=== PATIENT | female | born 1940 | race American Indian/Alaskan Native ===

== ENCOUNTER 2016-07-31 18:45 | Observation (INO) | payer MEDICARE, OTHER ==
[2016-07-31 18:57] VITALS: BMI 44.6
[2016-07-31 20:18] LABS: ADD MANUAL DIFF? NO
[2016-07-31 20:27] LABS: BASO # 0.03 K/mm3 (0.0-2.0); BASO % 0.5 % (0.0-3.0); EOS # 0.1 (0.0-0.7); EOS % 2.3 % (1.5-5.0); GRAN % 53.7 % (50.0-68.0); LYMPH % 36.3 % (22.0-35.0); MEAN CELL VOLUME 85.3 fL (80.0-105.0); MEAN CORPUSCULAR HEMOGLOBIN 26.2 pg (25.0-35.0); MEAN CORPUSCULAR HGB CONC 30.8 g/dl (31.0-37.0); MEAN PLATELET VOLUME 10.3 fl (7.0-11.0); MONO # 0.4 (0.1-0.6); MONO % 7.2 % (1.0-6.0); PLATELET COUNT 275 10^3/uL (120.0-450.0); RED CELL DISTRIBUTION WIDTH 16.3 % (11.5-14.5); WHITE BLOOD COUNT 5.6 10^3/ul (4.5-11.0)
[2016-07-31 20:32] LABS: ALB/GLOB RATIO 0.9 (1.1-1.8); BILIRUBIN,TOTAL 0.8 mg/dL (0.2-1.3); CALCIUM 9.6 mg/dL (8.4-10.5); TOTAL PROTEIN 8.4 g/dL (5.8-8.3)
--- NOTE | 2016-07-31 22:55 | ED PDOC ---
Arrival/HPI <Caleb Handley - Last Filed: 07/31/16 22:55> - General Historian: Patient <Delia Friedman - Last Filed: 08/01/16 03:16> - General Chief Complaint: Breast Problem Time Seen by Provider: 07/31/16 19:05 - History of Present Illness Narrative History of Present Illness (Text): 08/01/16 03:08 76yr old female presents today sent in by dr. chong for evaluation of left breast mass/abscess. pt states she was seen in dr. chong office today for breast mass and sent into er. pt c/o subjective fevers at home. no cp or new SOB. pt states she always has been feeling a little sob since her cabg this year. pt denies n/v/d/c. no abdominal pain. pt states she noticed lump to left breast a few weeks ago. pt states she now is having a heaviness feeling to the left breast and has noticed some erythema. no other complaints. (Delia Friedman) Past Medical History - Provider Review Nursing Documentation Reviewed: Yes - Travel History Have you recently traveled outside [place] w/in the past 3 mons?: No - Cardiac Hx Cardiac Disorders: Yes Hx Congestive Heart Failure: Yes Hx Hypertension: Yes - Pulmonary Hx Respiratory Disorders: Yes (PE) Hx Sleep Apnea: Yes - Neurological Hx Neurological Disorder: Yes (SYNCOPE) Hx Transient Ischemic Attacks (TIA): Yes - HEENT Hx HEENT Disorder: Yes Hx Cataracts: Yes Hx Glaucoma: Yes - Renal Hx Renal Disorder: No - Endocrine/Metabolic Hx Diabetes Mellitus Type 2: Yes - Hematological/Oncological Hx Blood Disorders: No - Integumentary Hx Dermatological Disorder: Yes (BILATERAL LEG EDEMA RIGHT LEG +3 AND LEFT LEG + 2.) - Musculoskeletal/Rheumatological Hx Falls: No - Gastrointestinal Hx Gastrointestinal Disorders: Yes - Genitourinary/Gynecological Hx Genitourinary Disorders: Yes (BILATERAL BREAST REDUCTION,TOTAL HYSTERECTOMY) - Psychiatric Hx Psychophysiologic Disorder: No Hx Emotional Abuse: No Hx Physical Abuse: No Hx Substance Use: No - Surgical History Hx Cardiac Catheterization: Yes Hx Coronary Stent: Yes (6) Hx Hysterectomy: Yes (TOTAL) Other/Comment: CARD CATH - Anesthesia Hx Anesthesia Reactions: No Hx Malignant Hyperthermia: No - Suicidal Assessment Feels Threatened In Home Enviroment: No <Delia Friedman - Last Filed: 08/01/16 03:16> Family/Social History - Physician Review Nursing Documentation Reviewed: Yes Family/Social History: Unknown Family HX Smoking Status: Never Smoked Hx Alcohol Use: No Hx Substance Use: No <Delia Friedman Joe - Last Filed: 08/01/16 03:16> Allergies/Home Meds <EnderCaleb - Last Filed: 07/31/16 22:55> <Delia Friedman Joe - Last Filed: 08/01/16 03:16> Allergies/Adverse Reactions: Allergies shellfish derived Allergy (Verified 07/31/16 18:57) SWELLING Home Medications: Home Meds Medication Instructions Recorded Confirmed Acetaminophen [8 Hour] 650 mg PO Q6H PRN 05/26/16 06/02/16 Dorzolamide HCl/Timolol Maleat 1 drop OP BID 05/26/16 06/02/16 [Dorzolamide-Timolol Eye Drops] Latanoprost [Xalatan] 1 drop OP HS 05/26/16 06/02/16 traMADol [Ultram] 50 mg PO Q6 PRN 05/26/16 06/02/16 Insulin Glargine,Hum.rec.anlog 55 unit SQ HS 06/02/16 06/02/16 [Whitney Mayorga] Review of Systems - Review of Systems Constitutional: Fevers. absent: Fatigue ENT: absent: Sinus Congestion Respiratory: absent: Cough, Wheezing Cardiovascular: absent: Chest Pain, Palpitations Gastrointestinal: absent: Abdominal Pain, Nausea, Vomiting Genitourinary Female: absent: Dysuria Musculoskeletal: Other (breast mass). absent: Arthralgias, Back Pain, Neck Pain Skin: Rash Neurological: absent: Headache, Dizziness Psychiatric: absent: Anxiety, Depression <Delia Friedman Joe - Last Filed: 08/01/16 03:16> Physical Exam Vital Signs Reviewed: Yes Temperature: Afebrile Blood Pressure: Hypertensive Pulse: Tachycardic Respiratory Rate: Normal Appearance: Positive for: Well-Appearing, Non-Toxic, Comfortable Pain Distress: None Mental Status: Positive for: Alert and Oriented X 3 - Systems Exam Head: Present: Atraumatic Mouth: Present: Moist Mucous Membranes Nose (Internal): Present: Normal Inspection Neck: Present: Normal Range of Motion Respiratory/Chest: Present: Clear to Auscultation, Good Air Exchange. No: Respiratory Distress, Accessory Muscle Use Cardiovascular: Present: Regular Rate and Rhythm Abdomen: No: Tenderness, Distention Breast/Axillary: Present: Erythema, Masses (large palpable mass noted to inferior aspect of breast approx golf ball sized. with surrouding erythema and edema, no tenderness. ). No: Nipple Discharge, Symmetrical Upper Extremity: Present: Normal ROM Neurological: Present: GCS=15 Skin: Present: Warm, Dry, Normal Color. No: Rashes Psychiatric: Present: Alert, Oriented x 3 <Delia Friedman - Last Filed: 08/01/16 03:16> Vital Signs Temp Pulse Resp BP Pulse Ox 07/31/16 23:47 99.5 F 92 H 18 155/87 H 97 07/31/16 18:56 98.8 F 102 H 20 152/84 H 95 Medical Decision Making <Caleb Handley - Last Filed: 07/31/16 22:55> <Delia Friedman - Last Filed: 08/01/16 03:16> ED Course and Treatment: 76yr old female with left breast mass/abscess/cellulitis cbc: wnl cmp; wnl cxr; ? left pleural effusion vs elevated diaphagrm blood cultures pending US: COMPARISON: MG - MAMMO DIGITAL SCREENING 08/14/2015 9:10:13 AM FINDINGS: Soft tissues: 3.7 x 1.4 x 3.6 cm mass at 4:00-5:00 position. 1.9 x 1.5 x 1.1 cm mass at 6:00 position. Mild edema within soft tissues. No discrete fluid collection. IMPRESSION: 1. Breast masses, indeterminate. Malignancy not excluded. Recommend correlation with mammography and surgical consultation. 2. Soft tissue edema. No sonographic evidence of abscess. 3. Incidental/non-acute findings are described above. rocephin given IV for cellulitis of breast. case discussed with dr. valle ; will admit observational status to med/surg for cellulitis of left breast and breast mass. pt was seen by resident at beside; dr. meade impression; breast mass, cellulitis, breast admit to med/surg, (Delia Friedman) - Lab Interpretations Lab Results: 07/31/16 19:45 07/31/16 19:45 Lab Results 07/31/16 19:45: WBC 5.6 D, RBC 4.69, Hgb 12.3, Hct 40.0, MCV 85.3, MCH 26.2, MCHC 30.8 L, RDW 16.3 H, Plt Count 275, MPV 10.3, Gran % 53.7, Lymph % (Auto) 36.3 H, [place] % (Auto) 7.2 H, Eos % (Auto) 2.3, Baso % (Auto) 0.5, Gran # 3.00, Lymph # 2.0, [place] # 0.4, Eos # 0.1, Baso # 0.03 07/31/16 19:45: Sodium 142, Potassium 5.0, Chloride 103, Carbon Dioxide 30, Anion Gap 14, BUN 11, Creatinine 1.1, Est GFR ( Amer) 58, Est GFR (Non- Af Amer) 48, Random Glucose 126 H, Calcium 9.6, Total Bilirubin 0.8, AST 33, ALT 18, Alkaline Phosphatase 80, Total Protein 8.4 H, Albumin 3.9, Globulin 4.4 , Albumin/Globulin Ratio 0.9 L - RAD Interpretation Radiology Orders: 07/31/16 19:23 CHEST PORTABLE [RAD] Stat 07/31/16 19:32 BREAST UNILATERAL LEFT [US] Stat - Medication Orders Current Medication Orders: Aspirin (Aspirin Chewable) 81 mg PO DAILY [facility] Atorvastatin Calcium (Lipitor) 10 mg PO DIN [facility] Ferrous Sulfate (Feosol) 324 mg PO TID [facility] Furosemide (Lasix) 40 mg PO DAILY [facility] Insulin Human Regular (Humulin R Low) 0 units SC ACHS [facility] PRN Reason: Protocol Levothyroxine Sodium (Synthroid) 125 mcg PO 0600 [facility] Pantoprazole Sodium (Protonix Ec Tab) 40 mg PO 0630 [facility] Senna/Docusate Sodium (Senokot S 50 Mg-8.6 Mg) 1 tab PO DAILY [facility] Discontinued Medications Ceftriaxone Sodium (Rocephin 1 Gram Ivpb) 1 gm in 100 mls @ 200 mls/hr IVPB STAT STA PRN Reason: Protocol Stop: 07/31/16 23:22 Last Admin: 08/01/16 00:36 Dose: 200 mls/hr - PA / BROADCAST OPERATIONS ENGINEER / Resident Statement EDWINA has reviewed & agrees with the documentation as recorded. EDWINA has examined the patient and agrees with the treatment plan. <Caleb Handley - Last Filed: 07/31/16 22:55> Disposition/Present on Arrival <Caleb Handley - Last Filed: 07/31/16 22:55> - Present on Arrival Any Indicators Present on Arrival: Yes History of DVT/PE: No History of Uncontrolled Diabetes: Yes Urinary Catheter: No History of Decub. Ulcer: No History Surgical Site Infection Following: None - Disposition Have Diagnosis and Disposition been Completed?: Yes Disposition Time: 22:55 <Delia Friedman - Last Filed: 08/01/16 03:16> - Disposition Diagnosis: Cellulitis of breast, Breast mass Disposition: HOSPITALIZED Condition: GOOD
[2016-07-31] MEDS: cefTRIAXone 1 gm 1 GM/100 ML BAG IVPB STA (23:35)
--- NOTE | 2016-07-31 23:40 | CP.PCM.HP ---
<Madhav Choudhury - Last Filed: 08/01/16 00:22> History of Present Illness - History of Present Illness History of Present Illness: 76 y/o F with PMH of CAD s/p stent placement and CABG, CHF, pulmary HTN, HTN, IDDM, GABRIELLE, and normocytic anemia presents to the hospital for left sided breast mass. Pt was seen by Dr. Garner in clinic earlier today and was recommended to come to the hospital for further evaluation of breast. Pt states she first noticed the breast mass on the left breast several weeks ago while cleaning herself. She states there is no pain associated with mass. Pt also went to see her margin clerk, Dr. Baez, last week who was not concerned with the mass at the time. Pt does admit to mild shortness of breath on exertion, but she states she has had it since before her recent CABG in 04/2016 but has been improving. Of note, patient had a mammogram in 07/2015 which did not show any signs of malignancy or benign masses. Denies CP, N/V/D, headaches, sick contacts, syncopal episodes. PMH: CAD s/p stent placement and CABG, CHF, pulmary HTN, HTN, IDDM, GABRIELLE, normocytic anemia Surgical Hx: CABG (04/2016), Hysterectomy, breast reduction Family Hx: Father of bone cancer. Sister - Hx of breast cancer, now in remission Social Hx: Denies alcohol, tobacco, illicit drugs Allergies: NKDA Medication: Feosol, Lasix, Lipitor, Protonix, Synthroid, Docusate Present on Admission - Present on Admission Any Indicators Present on Admission: No Review of Systems - Constitutional Constitutional: Fever (subjective). absent: Chills, Weight Loss - EENT Eyes: absent: Blurred Vision, Change in Vision Nose/Mouth/Throat: absent: Nasal Congestion, Nasal Discharge - Breasts Breasts: Change in Shape, Mass. absent: Nipple Discharge, Nipple Inversion - Cardiovascular Cardiovascular: absent: Chest Pain, Irregular Heart Rhythm - Respiratory Respiratory: absent: Cough, Dyspnea - Gastrointestinal Gastrointestinal: absent: Abdominal Pain, Diarrhea, Vomiting - Genitourinary Genitourinary: absent: Dysuria, Hematuria - Integumentary Integumentary: absent: New Lesions, Rash - Neurological Neurological: absent: Numbness, Syncope, Tingling - Endocrine Endocrine: Heat Intolorance. absent: Fatigue Past Patient History - Past Social History Smoking Status: Never Smoked - CARDIAC Hx Cardiac Disorders: Yes Hx Congestive Heart Failure: Yes Hx Hypertension: Yes - PULMONARY Hx Respiratory Disorders: Yes (PE) Hx Sleep Apnea: Yes - NEUROLOGICAL Hx Neurological Disorder: Yes (SYNCOPE) Hx Transient Ischemic Attacks (TIA): Yes - HEENT Hx HEENT Problems: Yes Hx Cataracts: Yes Hx Glaucoma: Yes - RENAL Hx Chronic Kidney Disease: No - ENDOCRINE/METABOLIC Hx Diabetes Mellitus Type 2: Yes - HEMATOLOGICAL/ONCOLOGICAL Hx Blood Disorders: No - INTEGUMENTARY Hx Dermatological Problems: Yes (BILATERAL LEG EDEMA RIGHT LEG +3 AND LEFT LEG + 2.) - MUSCULOSKELETAL/RHEUMATOLOGICAL Hx Falls: No - GASTROINTESTINAL Hx Gastrointestinal Disorders: Yes - GENITOURINARY/GYNECOLOGICAL Hx Genitourinary Disorders: Yes (BILATERAL BREAST REDUCTION,TOTAL HYSTERECTOMY) - PSYCHIATRIC Hx Psychophysiologic Disorder: No Hx Emotional Abuse: No Hx Physical Abuse: No Hx Substance Use: No - SURGICAL HISTORY Hx Cardiac Catheterization: Yes Hx Coronary Stent: Yes (6) Hx Hysterectomy: Yes (TOTAL) Other/Comment: CARD CATH - ANESTHESIA Hx Anesthesia Reactions: No Hx Malignant Hyperthermia: No Meds Allergies/Adverse Reactions: Allergies Allergy/AdvReac Type Severity Reaction Status Date / Time shellfish derived Allergy SWELLING Verified 07/31/16 18:57 Physical Exam - Constitutional Appears: Well, No Acute Distress - Head Exam Head Exam: ATRAUMATIC, NORMAL INSPECTION, NORMOCEPHALIC - Eye Exam Eye Exam: EOMI, Normal appearance, PERRL - ENT Exam ENT Exam: Mucous Membranes Moist, Normal Exam - Neck Exam Neck exam: Positive for: Normal Inspection. Negative for: Lymphadenopathy - Respiratory Exam Respiratory Exam: Clear to Auscultation Bilateral, NORMAL BREATHING PATTERN. absent: Rhonchi, Wheezes - Cardiovascular Exam Cardiovascular Exam: RRR, +S1, +S2 - GI/Abdominal Exam GI & Abdominal Exam: Normal Bowel Sounds, Soft. absent: Tenderness - Extremities Exam Extremities exam: Positive for: pedal edema (+1 pitting edema b/l) - Neurological Exam Neurological exam: Alert, CN II-XII Intact, Oriented x3 - Psychiatric Exam Psychiatric exam: Normal Affect, Normal Mood - Skin Skin Exam: Intact, Normal Color, Warm Additional comments: Breast exam: Left - Small mass located at 4 o'clock and 6 o'clock position, 4 cm away from nipple. Masses are firm and immobile. No nipple retraction or discharge noted. Skin is nonerythematous. Nontender. Right - No masses, no nipple retraction or discharge. Results - Vital Signs Recent Vital Signs: Last Vital Signs Temp 98.8 F 07/31/16 18:56 Pulse 102 H 07/31/16 18:56 Resp 20 07/31/16 18:56 BP 152/84 H 07/31/16 18:56 Pulse Ox 95 07/31/16 18:56 - Labs Result Diagrams: 07/31/16 19:45 07/31/16 19:45 Labs: Laboratory Results - last 24 hr 07/31/16 07/31/16 19:45 19:45 WBC 5.6 D RBC 4.69 Hgb 12.3 Hct 40.0 MCV 85.3 MCH 26.2 MCHC 30.8 L RDW 16.3 H Plt Count 275 MPV 10.3 Gran % 53.7 Lymph % (Auto) 36.3 H [place] % (Auto) 7.2 H Eos % (Auto) 2.3 Baso % (Auto) 0.5 Gran # 3.00 Lymph # 2.0 Leslie # 0.4 Eos # 0.1 Baso # 0.03 Sodium 142 Potassium 5.0 Chloride 103 Carbon Dioxide 30 Anion Gap 14 BUN 11 Creatinine 1.1 Est GFR ( Amer) 58 Est GFR (Non-Af Amer) 48 Random Glucose 126 H Calcium 9.6 Total Bilirubin 0.8 AST 33 ALT 18 Alkaline Phosphatase 80 Total Protein 8.4 H Albumin 3.9 Globulin 4.4 Albumin/Globulin Ratio 0.9 L Assessment & Plan - Assessment and Plan (Free Text) Plan: 76 y/o F with PMH of CAD s/p stent placement and CABG, CHF, pulmary HTN, HTN, IDDM, GABRIELLE, hypothyroidism and normocytic anemia for further evaluation of left breast mass. Pt given antibiotics in the ED for possibility of breast cellulitis. Pt also underwent left breast ultrasound which is preliminary read as mass, cannot rule out malignancy. Pt will be admitted for possible breast cellulitis and evaluation of breast mass. Will order mammogram to evaluate breast mass. 1. Breast mass/cellulitis - Mammogram - Awaiting final ultrasound read - R/o cellulitis, consider continuing abx 2. Hx of CABG - Lipitor, ASA - Plavix and coreg held during last admission by cardiology 3. Hx of CHF - Continue lasix - Monitor respiratory status - BNP ordered 4. Hx of IDDM - HgA1c - ISS 5. Hx of hypothyroidism - Synthroid - TSH ordered 6. Hx of anemia - Feosol 7. PPX Protonix SCDs Seen, reviewed, and discussed with attending Macey PGY-1 <Dilip Fox - Last Filed: 08/04/16 09:17> Results - Vital Signs Recent Vital Signs: Last Vital Signs Temp 99 F 08/03/16 12:55 Pulse 83 08/03/16 12:55 Resp 18 08/03/16 12:55 BP 191/93 H 08/03/16 12:55 Pulse Ox 96 08/03/16 12:55 - Labs Result Diagrams: 08/03/16 06:40 08/03/16 06:40 Labs: Laboratory Results - last 24 hr 08/03/16 08/03/16 08:55 10:00 PT 12.0 H INR 1.11 H APTT 26.4 Urine Color Yellow Urine Appearance Clear Urine pH 6.0 Ur Specific [place] 1.025 Urine Protein 30 H Urine Glucose (UA) Negative Urine Ketones Negative Urine Blood Negative Urine Nitrate Negative Urine Bilirubin Negative Urine Urobilinogen 0.2 Ur Leukocyte Esterase Negative Urine RBC 0 - 2 Urine WBC 0 - 2 Ur Epithelial Cells 4 - 5 Urine Bacteria Few Attending/Attestation - Attestation I have personally seen and examined this patient.: Yes I have fully participated in the care of the patient.: Yes I have reviewed all pertinent clinical information: Yes Notes (Text): 08/04/16 09:17 Medical record note made by the resident after discussion with my direction and input after the patient was personally seen and examined by me. I have reviewed the chart and agree that the record accurately reflects by personal performance of the history, physical exam, data review, and medical decision-making, in the course for the patient. I have also personally directed the plan of care.
[2016-08-01] MEDS: cefTRIAXone 1 gm 1 GM/100 ML BAG IVPB STA (00:36)
[2016-08-01] MEDS: Pantoprazole 40 mg EC Tab PO SCH (05:32)
[2016-08-01] MEDS ORDERED: Levothyroxine 125 MCG TAB PO SCH (06:00)
--- NOTE | 2016-08-01 07:29 | RAD ---
HISTORY: left breast lump COMPARISON: Comparison is made to 05/29/2016 FINDINGS: LUNGS: Small linear opacities are seen at the lower lobes may represent atelectasis. Again seen is elevation of the left hemidiaphragm PLEURA: Blunting of the left costophrenic angle is again noted. CARDIOVASCULAR: Normal. OSSEOUS STRUCTURES: No significant abnormalities. VISUALIZED UPPER ABDOMEN: Normal. OTHER FINDINGS: None. IMPRESSION: Linear opacities at the lower lobes may represent atelectasis. Other etiology is not totally excluded. Elevation of the left hemidiaphragm and blunting of the left costophrenic angle.
[2016-08-01 07:48] LABS: HEMATOCRIT 34.9 % (36.0-48.0); MEAN CELL VOLUME 85.1 fL (80.0-105.0); MEAN CORPUSCULAR HEMOGLOBIN 26.1 pg (25.0-35.0); MEAN CORPUSCULAR HGB CONC 30.7 g/dl (31.0-37.0); MEAN PLATELET VOLUME 10.4 fl (7.0-11.0); RED CELL DISTRIBUTION WIDTH 16.4 % (11.5-14.5)
[2016-08-01 08:04] LABS: ALB/GLOB RATIO 0.9 (1.1-1.8); BILIRUBIN,TOTAL 0.5 mg/dL (0.2-1.3); CALCIUM 9.2 mg/dL (8.4-10.5); POTASSIUM 3.6 mmol/L (3.6-5.0)
[2016-08-01] MEDS: Insulin Reg-LOW-Coverage SC SCH ×4 (08:33→21:58)
[2016-08-01] MEDS: Docusate-Senna 50 mg-8.6 mg Tab PO SCH (09:41)
[2016-08-01] MEDS ORDERED: Ceftaroline 600 MG in Sodium Chloride 0.9% 100 ML IVPB SCH (10:00)
--- NOTE | 2016-08-01 10:22 | CP.PCM.PN ---
<Sulma Mora - Last Filed: 08/01/16 13:15> Subjective - Date & Time of Evaluation Date of Evaluation: 08/01/16 Time of Evaluation: 07:45 - Subjective Subjective: Medicine progress note for Dr Garner and Dr Fox service. Patient was seen and examined at bed side. Patient reports the breast pain has improved. Patient denies fever or chills. Patient denies n/v/d, denies cp or sob. Patient's family was at the bedside. Objective - Vital Signs/Intake and Output Vital Signs (last 24 hours): Temp Pulse Resp BP Pulse Ox 98.6 F 95 H 20 144/77 93 L 08/01/16 07:30 08/01/16 07:30 08/01/16 07:30 08/01/16 09:34 08/01/16 07:30 - Medications Medications: Current Medications Aspirin (Aspirin) 325 mg PO DAILY [facility] Atorvastatin Calcium (Lipitor) 10 mg PO DIN [facility] Bisacodyl (Dulcolax) 10 mg PO DAILY [facility] Dorzolamide/Timolol (Cosopt 2%-0.5% Opht) 1 drop OU BID [facility] Enoxaparin Sodium (Lovenox) 40 mg SC DAILY [facility] PRN Reason: Protocol Ferrous Sulfate (Feosol) 324 mg PO TID [facility] Last Admin: 08/01/16 09:34 Dose: 324 mg Furosemide (Lasix) 40 mg PO DAILY [facility] Last Admin: 08/01/16 09:34 Dose: 40 mg Ceftaroline Fosamil 600 mg/ (Sodium Chloride) 100 mls @ 100 mls/hr IVPB Q12 [facility] PRN Reason: Protocol Stop: 08/01/16 22:59 Insulin Human Regular (Humulin R Low) 0 units SC ACHS [facility] PRN Reason: Protocol Last Admin: 08/01/16 08:33 Dose: 1 units Latanoprost (Xalatan Opht) 0 ml OU HS [facility] Levothyroxine Sodium (Synthroid) 125 mcg PO 0600 [facility] Last Admin: 08/01/16 05:32 Dose: 125 mcg Mupirocin (Bactroban Ointment) 1 gm TOP BID [facility] Pantoprazole Sodium (Protonix Ec Tab) 40 mg PO 0630 [facility] Last Admin: 08/01/16 05:32 Dose: 40 mg Senna/Docusate Sodium (Senokot S 50 Mg-8.6 Mg) 1 tab PO DAILY [facility] Last Admin: 08/01/16 09:41 Dose: 1 tab Tramadol HCl (Ultram) 50 mg PO Q6 PRN PRN Reason: Pain, severe (8-10) - Labs Labs: 08/01/16 06:30 08/01/16 06:30 - Constitutional Appears: No Acute Distress - Head Exam Head Exam: ATRAUMATIC, NORMAL INSPECTION, NORMOCEPHALIC - Eye Exam Eye Exam: EOMI, Normal appearance. absent: Scleral icterus - ENT Exam ENT Exam: Mucous Membranes Dry - Neck Exam Neck Exam: Normal Inspection - Respiratory Exam Respiratory Exam: Clear to Ausculation Bilateral, NORMAL BREATHING PATTERN. absent: Wheezes, Respiratory Distress, Stridor - Cardiovascular Exam Cardiovascular Exam: REGULAR RHYTHM, +S1, +S2. absent: Murmur - GI/Abdominal Exam GI & Abdominal Exam: Soft, Normal Bowel Sounds. absent: Tenderness - Extremities Exam Extremities Exam: absent: Pedal Edema Additional comments: + skin discoloration - Back Exam Back Exam: NORMAL INSPECTION - Neurological Exam Neurological Exam: Alert, Awake, Oriented x3 - Psychiatric Exam Psychiatric exam: Normal Affect, Normal Mood - Skin Skin Exam: Dry, Warm Additional comments: Left cheek with black eschar, non fluctuante, with small opening, no drainage, b /l cheeks with edema. Left breast warm, 5-6 o'clock with mass like lesion, non mobile, fixed like mass around the lower portion of the nipple, + nipple retraction. No nipple discharge. Assessment and Plan - Assessment and Plan (Free Text) Assessment: Patient is a 76 y/o with PMH of CAD s/p stent placement and CABG, CHF, pulmonary HTN, HTN, IDDM, GABRIELLE, and normocytic anemia presenting with left breast mass. Plan: 1) left breast mass and cellulites - R/o malignancy - Breast u/s can't exclude malignancy, no abscess, + soft tissue edema. - Cellulitic area has improved with antibiotic - Started on [place], ID on consult - no leukocytosis, afebrile, bcx pending - Holding off mammogram due to breast pain/inflammation, will consider obtaining MRI - Surgery consult for possible biopsy. 2) Folliculitis of the left side of the face - started on [place] - topical mupirocin 3) h/o CAD S/P CABG and stents - will continue asa, lipitor. - Patient is also on lasix for h/o CHF. 4) IDDM - Will continue basal and ISS. - Fingertsick ACHS - Carb controlled diet. 5) Normocytic anemia- - h/h at baseline, - will continue to monitor, - continue po iron. 6) hypothyroidism - low TSh, will obtain free T4 - Will continue with synthroid 125 mcg daily 8) h/o constipation- - will continue dulcolax and senna. 9) DVT/Gi prophylaxis: lovenox sc and protonix. Patient seen, examined and case discussed with the attending. <Bam Garner - Last Filed: 08/25/16 09:02> Objective - Vital Signs/Intake and Output Vital Signs (last 24 hours): Temp Pulse Resp BP Pulse Ox 99 F 83 18 191/93 H 96 08/03/16 12:55 08/03/16 12:55 08/03/16 12:55 08/03/16 12:55 08/03/16 12:55 - Labs Labs: 08/03/16 06:40 08/03/16 06:40 PT 12.0 Seconds (9.9-11.8) H 08/03/16 08:55 INR 1.11 (0.93-1.08) H 08/03/16 08:55 APTT 26.4 Seconds (23.7-30.8) 08/03/16 08:55 Attending/Attestation - Attestation I have personally seen and examined this patient.: Yes I have fully participated in the care of the patient.: Yes I have reviewed all pertinent clinical information, including history, physical exam and plan: Yes Notes (Text): 08/25/16 09:02 Medical record note made by the resident after discussion with my direction and input after the patient was personally seen and examined by me. I have reviewed the chart and agree that the record reflects my personal performance of history, physical, data review and course for the patient that I have planned.
[2016-08-01] MEDS: Enoxaparin 40 mg Syringe SC SCH (10:58)
--- NOTE | 2016-08-01 12:09 | CP.PCM.CON ---
History of Present Illness - History of Present Illness History of Present Illness: General surgery consult note for Dr. Brian Hoyos PGY1 76 F with PMHx of CAD s/p stent placement and CABG, CHF, HTN, and IDDM presenting [place] [facility] with complaints of left sided breast mass. Pt claims she recently noticed the breast mass approx a month ago. She denies any tenderness or discharge from the nipple. She had a mammogram performed in 07/2015 which did not demonstrate any masses at the time. Pt was sent from PMD office to [facility] for further evaluation of the left sided mass. Pt denied fever, chills, night sweats , chest pains, nipple discharge, abdominal pains, n/v/d/c or urinary symptoms. PMHx: CAD s/p stent placement and CABG, CHF, pulmary HTN, HTN, IDDM, GABRIELLE, normocytic anemia PSHx: CABG (04/2016), Hysterectomy, breast reduction FamHx: Father: bone cancer. Sister - Hx of breast cancer, now in remission SHx: Denies alcohol, tobacco, illicit drug abuse Allergies: Shellfish Review of Systems - Review of Systems Review of Systems: as per HPI otherwise negative Past Patient History - Past Social History Smoking Status: Never Smoked - CARDIAC Hx Cardiac Disorders: Yes Hx Congestive Heart Failure: Yes Hx Hypertension: Yes - PULMONARY Hx Respiratory Disorders: Yes (PE) Hx Sleep Apnea: Yes - NEUROLOGICAL Hx Neurological Disorder: Yes (SYNCOPE) Hx Transient Ischemic Attacks (TIA): Yes - HEENT Hx HEENT Problems: Yes Hx Cataracts: Yes Hx Glaucoma: Yes - RENAL Hx Chronic Kidney Disease: No - ENDOCRINE/METABOLIC Hx Diabetes Mellitus Type 2: Yes - HEMATOLOGICAL/ONCOLOGICAL Hx Blood Disorders: No - INTEGUMENTARY Hx Dermatological Problems: Yes (BILATERAL LEG EDEMA RIGHT LEG +3 AND LEFT LEG + 2.) - MUSCULOSKELETAL/RHEUMATOLOGICAL Hx Falls: No - GASTROINTESTINAL Hx Gastrointestinal Disorders: Yes - GENITOURINARY/GYNECOLOGICAL Hx Genitourinary Disorders: Yes (BILATERAL BREAST REDUCTION,TOTAL HYSTERECTOMY) - PSYCHIATRIC Hx Psychophysiologic Disorder: No Hx Emotional Abuse: No Hx Physical Abuse: No Hx Substance Use: No - SURGICAL HISTORY Hx Cardiac Catheterization: Yes Hx Coronary Stent: Yes (6) Hx Hysterectomy: Yes (TOTAL) Other/Comment: CARD CATH - ANESTHESIA Hx Anesthesia Reactions: No Hx Malignant Hyperthermia: No Meds Allergies/Adverse Reactions: Allergies Allergy/AdvReac Type Severity Reaction Status Date / Time shellfish derived Allergy SWELLING Verified 07/31/16 18:57 - Medications Medications: Current Medications Aspirin (Aspirin) 325 mg PO DAILY [facility] Atorvastatin Calcium (Lipitor) 10 mg PO DIN [facility] Bisacodyl (Dulcolax) 10 mg PO DAILY [facility] Dorzolamide/Timolol (Cosopt 2%-0.5% Opht) 1 drop OU BID [facility] Enoxaparin Sodium (Lovenox) 40 mg SC DAILY [facility] PRN Reason: Protocol Last Admin: 08/01/16 10:58 Dose: 40 mg Ferrous Sulfate (Feosol) 324 mg PO TID [facility] Last Admin: 08/01/16 09:34 Dose: 324 mg Furosemide (Lasix) 40 mg PO DAILY [facility] Last Admin: 08/01/16 09:34 Dose: 40 mg Ceftaroline Fosamil 600 mg/ (Sodium Chloride) 100 mls @ 100 mls/hr IVPB Q12 [facility] PRN Reason: Protocol Stop: 08/01/16 22:59 Last Admin: 08/01/16 10:58 Dose: 100 mls/hr Insulin Detemir (Levemir) 40 unit SC HS [facility] Insulin Human Regular (Humulin R Low) 0 units SC ACHS [facility] PRN Reason: Protocol Last Admin: 08/01/16 08:33 Dose: 1 units Latanoprost (Xalatan Opht) 0 ml OU HS [facility] Levothyroxine Sodium (Synthroid) 125 mcg PO 0600 [facility] Last Admin: 08/01/16 05:32 Dose: 125 mcg Mupirocin (Bactroban Ointment) 1 gm TOP BID [facility] Last Admin: 08/01/16 10:57 Dose: 1 u Pantoprazole Sodium (Protonix Ec Tab) 40 mg PO 0630 [facility] Last Admin: 08/01/16 05:32 Dose: 40 mg Senna/Docusate Sodium (Senokot S 50 Mg-8.6 Mg) 1 tab PO DAILY [facility] Last Admin: 08/01/16 09:41 Dose: 1 tab Tramadol HCl (Ultram) 50 mg PO Q6 PRN PRN Reason: Pain, severe (8-10) Physical Exam - Constitutional Appears: Well, No Acute Distress - Head Exam Head Exam: ATRAUMATIC, NORMAL INSPECTION, NORMOCEPHALIC - Eye Exam Eye Exam: EOMI, Normal appearance, PERRL Pupil Exam: NORMAL ACCOMODATION, PERRL - ENT Exam ENT Exam: Mucous Membranes Moist, Normal Exam - Neck Exam Neck exam: Positive for: Normal Inspection - Respiratory Exam Respiratory Exam: Clear to Auscultation Bilateral, NORMAL BREATHING PATTERN - Cardiovascular Exam Cardiovascular Exam: REGULAR RHYTHM, +S1, +S2 - GI/Abdominal Exam GI & Abdominal Exam: Normal Bowel Sounds, Soft. absent: Tenderness - Neurological Exam Neurological exam: Alert, CN II-XII Intact, Normal Gait, Oriented x3, Reflexes Normal - Psychiatric Exam Psychiatric exam: Normal Affect, Normal Mood - Additional Findings Additional findings: left breast mass, non-fluctuant, no nipple discharge Results - Vital Signs Recent Vital Signs: Last Vital Signs Temp 98.6 F 08/01/16 07:30 Pulse 95 H 08/01/16 07:30 Resp 20 08/01/16 07:30 BP 144/77 08/01/16 09:34 Pulse Ox 93 L 08/01/16 07:30 - Labs Result Diagrams: 08/01/16 06:30 08/01/16 06:30 Labs: Laboratory Results - last 24 hr 08/01/16 08/01/16 08/01/16 06:30 06:30 06:30 WBC 6.0 RBC 4.10 Hgb 10.7 L Hct 34.9 L MCV 85.1 MCH 26.1 MCHC 30.7 L RDW 16.4 H Plt Count 246 MPV 10.4 Sodium 143 Potassium 3.6 Chloride 103 Carbon Dioxide 31 Anion Gap 13 BUN 11 Creatinine 1.1 Est GFR ( Amer) 58 Est GFR (Non-Af Amer) 48 Random Glucose 159 H Calcium 9.2 Total Bilirubin 0.5 AST 21 ALT 25 Alkaline Phosphatase 81 NT-Pro-B Natriuret Pep 4810 H Total Protein 7.0 Albumin 3.3 Globulin 3.6 Albumin/Globulin Ratio 0.9 L Free T4 TSH 3rd Generation 0.02 L 08/01/16 08:30 WBC RBC Hgb Hct MCV MCH MCHC RDW Plt Count MPV Sodium Potassium Chloride Carbon Dioxide Anion Gap BUN Creatinine Est GFR ( Amer) Est GFR (Non-Af Amer) Random Glucose Calcium Total Bilirubin AST ALT Alkaline Phosphatase NT-Pro-B Natriuret Pep Total Protein Albumin Globulin Albumin/Globulin Ratio Free T4 2.27 H TSH 3rd Generation Assessment & Plan - Assessment and Plan (Free Text) Assessment: 76 F with left breast mass, consulted General Surgery for further evaluation - US reviewed and concerning for mass, negative for abscess - MRI pending - likely to follow with FNA tomorrow - continue medical management as per primary team Seen reviewed and discussed with attending, Dr. Daugherty
--- NOTE | 2016-08-01 15:06 | CON ---
DATE: 08/01/2016 HISTORY OF PRESENT ILLNESS: The patient is a 76-year-old woman who presents with a left breast mass. PAST MEDICAL HISTORY: Recent coronary artery bypass surgery. Bypass surgery was for a critical left main stenosis. After a stormy course, the patient did well. Her past medical history is also notable for morbid obesity, hypertension, diabetes mellitus and hype rcholesterolemia. She denies chest pain, denies shortness of breath. SOCIAL HISTORY: The patient does not smoke. REVIEW OF SYSTEMS: A 14-point was reviewed in detail. No cardiac symptomatology noted. PHYSICAL EXAMINATION: VITAL SIGNS: The blood pressure is 139/80, heart rate is in the 90s. NECK: Negative JVD. LUNGS: Without rales. HEART: Revealed S1, S2. EXTREMITIES: + edema. CHEST: There is an indurated area under the left breast. EKG was not done. LABORATORIES: Hemoglobin is 10.7. Chemistries: The proBNP is 4810. IMPRESSION: 1. Left breast mass. 2. Stable angina. 3. Coronary artery disease. 4. History of recent coronary artery bypass surgery. 5. Diabetes mellitus. 6. Morbid obesity. 7. Occasional pedal edema. Given these findings, the patient is hemodynamically stable at this time. There is no evidence for o ngoing ischemia. The patient has recovered from her bypass surgery well. Investigation into this le ft breast mass is pending. Gigi Baez MD cc: [id number] TT: 08/01/2016 15:06:19 Confirmation # [id number] Dictation # [id number]
--- NOTE | 2016-08-01 17:35 | US ---
HISTORY: TECHNIQUE: Sonographic evaluation of both breast was performed. FINDINGS: LEFT BREAST: Solid mass well-circumscribed 4-5 o'clock 3.6 x 1.4 x 3.7 cm. More deeply situated solid mass by 1.5 x 1.9 cm six o'clock. Cutaneous and subcutaneous edema. No drainable collection. No axillary lymphadenopathy identified. IMPRESSION: Solid masses inferior aspect left breast. No drainable collection. Cutaneous and subcutaneous edema. Follow-up to resolution advised. Supplemental mammogram recommended. BIRADS: BIRADS 0 Incomplete - Need additional imaging evaluation and/or prior mammograms for comparisonRecommendation: Recall for additional imaging and/or comparison with prior examination, as described above. Patient will be contacted. Concordant results (preliminary interpretation) provided by [facility]. Procedure Completed: 20:53. Preliminary ([facility]) Report: Dictated and Authenticated: 22:14. Final Interpretation: 17:33.August 01, 2016.
[2016-08-01] MEDS: Dorzolamide 2%/Timolol 0.5% 100 DROP/10 ML BOTTLE OU SCH (18:25)
--- NOTE | 2016-08-01 19:20 | CP.PCM.CON ---
History of Present Illness - History of Present Illness History of Present Illness: 76 year old female with PMH of HTN, DM, CAD S/P CABG (05/04/2016), morbid obesity with BMI 45 came in complaining of right breast mass associated with some swelling of the breast but no note of erythema and no pain. There is no note of discharge, or bloody expression from the area, no nipple discharge, no fever or chills, no nausea or vomiting, no chest pain, no SOB, no headache or dizziness, no abdominal pain, no cough or colds, no sore throat, no diarrhea, no dysuria. Apparently the patient had a mammogram in July 2015 which did not show masses. Infectious Diseases consult is requested to further evaluate and manage. Review of Systems - Review of Systems All systems: reviewed and no additional remarkable complaints except (as per HPI ) Past Patient History - Past Social History Smoking Status: Never Smoked - CARDIAC Hx Cardiac Disorders: Yes Hx Congestive Heart Failure: Yes Hx Hypertension: Yes - PULMONARY Hx Respiratory Disorders: Yes (PE) Hx Sleep Apnea: Yes - NEUROLOGICAL Hx Neurological Disorder: Yes (SYNCOPE) Hx Transient Ischemic Attacks (TIA): Yes - HEENT Hx HEENT Problems: Yes Hx Cataracts: Yes Hx Glaucoma: Yes - RENAL Hx Chronic Kidney Disease: No - ENDOCRINE/METABOLIC Hx Diabetes Mellitus Type 2: Yes - HEMATOLOGICAL/ONCOLOGICAL Hx Blood Disorders: No - INTEGUMENTARY Hx Dermatological Problems: Yes (BILATERAL LEG EDEMA RIGHT LEG +3 AND LEFT LEG + 2.) - MUSCULOSKELETAL/RHEUMATOLOGICAL Hx Falls: No - GASTROINTESTINAL Hx Gastrointestinal Disorders: Yes - GENITOURINARY/GYNECOLOGICAL Hx Genitourinary Disorders: Yes (BILATERAL BREAST REDUCTION,TOTAL HYSTERECTOMY) - PSYCHIATRIC Hx Psychophysiologic Disorder: No Hx Emotional Abuse: No Hx Physical Abuse: No Hx Substance Use: No - SURGICAL HISTORY Hx Cardiac Catheterization: Yes Hx Coronary Stent: Yes (6) Hx Hysterectomy: Yes (TOTAL) Other/Comment: CARD CATH - ANESTHESIA Hx Anesthesia Reactions: No Hx Malignant Hyperthermia: No Meds Allergies/Adverse Reactions: Allergies Allergy/AdvReac Type Severity Reaction Status Date / Time shellfish derived Allergy SWELLING Verified 07/31/16 18:57 - Medications Medications: Current Medications Aspirin (Aspirin Chewable) 81 mg PO DAILY [facility] Last Admin: 08/01/16 09:34 Dose: 81 mg Atorvastatin Calcium (Lipitor) 10 mg PO DIN [facility] Ferrous Sulfate (Feosol) 324 mg PO TID [facility] Last Admin: 08/01/16 09:34 Dose: 324 mg Furosemide (Lasix) 40 mg PO DAILY [facility] Last Admin: 08/01/16 09:34 Dose: 40 mg Ceftaroline Fosamil 600 mg/ (Sodium Chloride) 100 mls @ 100 mls/hr IVPB Q12 [facility] PRN Reason: Protocol Stop: 08/01/16 22:59 Insulin Human Regular (Humulin R Low) 0 units SC ACHS [facility] PRN Reason: Protocol Last Admin: 08/01/16 08:33 Dose: 1 units Levothyroxine Sodium (Synthroid) 125 mcg PO 0600 [facility] Last Admin: 08/01/16 05:32 Dose: 125 mcg Mupirocin (Bactroban Ointment) 1 gm TOP BID [facility] Pantoprazole Sodium (Protonix Ec Tab) 40 mg PO 0630 [facility] Last Admin: 08/01/16 05:32 Dose: 40 mg Senna/Docusate Sodium (Senokot S 50 Mg-8.6 Mg) 1 tab PO DAILY [facility] Last Admin: 08/01/16 09:41 Dose: 1 tab Physical Exam - Constitutional Appears: Non-toxic, No Acute Distress - Head Exam Head Exam: NORMAL INSPECTION - ENT Exam ENT Exam: Mucous Membranes Moist - Neck Exam Neck exam: Negative for: Lymphadenopathy, Meningismus - Respiratory Exam Respiratory Exam: Decreased Breath Sounds - Cardiovascular Exam Cardiovascular Exam: +S1, +S2 Additional comments: right breast with solid mass noted on the 5 o'clock position, no discharge noted or blood - GI/Abdominal Exam GI & Abdominal Exam: Soft. absent: Tenderness Results - Vital Signs Recent Vital Signs: Last Vital Signs Temp 98.6 F 08/01/16 07:30 Pulse 95 H 08/01/16 07:30 Resp 20 08/01/16 07:30 BP 144/77 08/01/16 09:34 Pulse Ox 93 L 08/01/16 07:30 - Labs Result Diagrams: 08/01/16 06:30 08/01/16 06:30 Labs: Laboratory Results - last 24 hr 08/01/16 08/01/16 08/01/16 06:30 06:30 06:30 WBC 6.0 RBC 4.10 Hgb 10.7 L Hct 34.9 L MCV 85.1 MCH 26.1 MCHC 30.7 L RDW 16.4 H Plt Count 246 MPV 10.4 Sodium 143 Potassium 3.6 Chloride 103 Carbon Dioxide 31 Anion Gap 13 BUN 11 Creatinine 1.1 Est GFR ( Amer) 58 Est GFR (Non-Af Amer) 48 Random Glucose 159 H Calcium 9.2 Total Bilirubin 0.5 AST 21 ALT 25 Alkaline Phosphatase 81 NT-Pro-B Natriuret Pep 4810 H Total Protein 7.0 Albumin 3.3 Globulin 3.6 Albumin/Globulin Ratio 0.9 L TSH 3rd Generation 0.02 L Assessment & Plan - Assessment and Plan (Free Text) Plan: Assessment breast mass on the right without evidence of cellulitis chronic CHF Asymptomatic bacteriuria with E. faecalis HTN DM CAD S/P CABG (05/04/2016) morbid obesity with BMI 45 Plan reviewed results of the ultrasound - solid masses noted - will follow up further imaging work up and Surgery evaluation Will monitor clinically
[2016-08-01] MEDS: Latanoprost 2.5 ml Opht Soln OU SCH (21:57)
[2016-08-01] MEDS: Insulin Detemir 100 units/ml Vial (Levemir) SC SCH (21:57)
[2016-08-01] MEDS ORDERED: Docusate-Senna 50 mg-8.6 mg Tab PO SCH (22:00)
[2016-08-01] MEDS ORDERED: Latanoprost 2.5 ml Opht Soln OU SCH (22:00)
[2016-08-02] MEDS: Levothyroxine 100 MCG TAB PO SCH (05:34)
[2016-08-02] MEDS: Pantoprazole 40 mg EC Tab PO SCH (05:34)
[2016-08-02 06:37] LABS: ADD MANUAL DIFF? NO
[2016-08-02 07:15] LABS: BLOOD UREA NITROGEN 12 mg/dL (7-21); CALCIUM 9.1 mg/dL (8.4-10.5); CARBON DIOXIDE 32 mmol/L (21-33); CHLORIDE 103 mmol/L (98-107); GFR AFRICAN-AMERICAN > 60; GLUCOSE,RANDOM 162 mg/dL (70-110); POTASSIUM 3.8 mmol/L (3.6-5.0); SODIUM 142 mmol/L (132-148)
[2016-08-02 07:25] LABS: BASO # 0.02 K/mm3 (0.0-2.0); BASO % 0.3 % (0.0-3.0); EOS # 0.2 (0.0-0.7); EOS % 2.8 % (1.5-5.0); GRAN # 2.94 (1.4-6.5); GRAN % 51.1 % (50.0-68.0); HEMATOCRIT 35.1 % (36.0-48.0); LYMPH % 35.5 % (22.0-35.0); MEAN CORPUSCULAR HEMOGLOBIN 26.2 pg (25.0-35.0); MEAN CORPUSCULAR HGB CONC 30.8 g/dl (31.0-37.0); MONO # 0.6 (0.1-0.6); MONO % 10.3 % (1.0-6.0); PLATELET COUNT 273 10^3/uL (120.0-450.0); RED CELL DISTRIBUTION WIDTH 16.3 % (11.5-14.5); WHITE BLOOD COUNT 5.8 10^3/ul (4.5-11.0)
[2016-08-02] MEDS ORDERED: Levothyroxine 125 MCG TAB PO SCH (07:30)
[2016-08-02] MEDS: cefTRIAXone 1 gm 1 GM/100 ML BAG IVPB STA (07:38)
[2016-08-02] MEDS: Insulin Reg-LOW-Coverage SC SCH ×4 (08:14→21:31)
[2016-08-02] MEDS: Dorzolamide 2%/Timolol 0.5% 100 DROP/10 ML BOTTLE OU SCH ×2 (09:45→17:56)
[2016-08-02] MEDS: Bisacodyl 5mg EC Tab PO SCH (09:45)
[2016-08-02] MEDS: Enoxaparin 40 mg Syringe SC SCH (09:45)
[2016-08-02] MEDS: Docusate-Senna 50 mg-8.6 mg Tab PO SCH (09:46)
--- NOTE | 2016-08-02 09:51 | CP.PCM.PN ---
<Sulma Mora - Last Filed: 08/02/16 12:47> Subjective - Date & Time of Evaluation Date of Evaluation: 08/02/16 Time of Evaluation: 09:15 - Subjective Subjective: Medicine progress note for Dr Garner and Ruddy. Patient with no acute events overnight. Patient reports nausea and vomiting all morning. States she feels bloated and constipated. Patient denies diarrhea. Patient denies fever, chills, denies cp or sob. Patient reports the left breast pain has resolved. Objective - Vital Signs/Intake and Output Vital Signs (last 24 hours): Temp Pulse Resp BP Pulse Ox 98.6 F 85 18 144/73 98 08/02/16 07:30 08/02/16 07:30 08/02/16 07:30 08/02/16 07:30 08/02/16 07:30 Intake and Output: 08/02/16 08/02/16 06:59 18:59 Intake Total 190 Balance 190 - Medications Medications: Current Medications Aspirin (Aspirin) 325 mg PO DAILY [facility] Atorvastatin Calcium (Lipitor) 10 mg PO DIN [facility] Last Admin: 08/01/16 16:46 Dose: 10 mg Bisacodyl (Dulcolax) 10 mg PO DAILY [facility] Dorzolamide/Timolol (Cosopt 2%-0.5% Opht) 1 drop OU BID [facility] Last Admin: 08/01/16 18:25 Dose: 1 u Enoxaparin Sodium (Lovenox) 40 mg SC DAILY [facility] PRN Reason: Protocol Last Admin: 08/01/16 10:58 Dose: 40 mg Ferrous Sulfate (Feosol) 324 mg PO TID [facility] Last Admin: 08/01/16 18:25 Dose: 324 mg Furosemide (Lasix) 40 mg PO DAILY [facility] Last Admin: 08/01/16 09:34 Dose: 40 mg Insulin Detemir (Levemir) 40 unit SC HS [facility] Last Admin: 08/01/16 21:57 Dose: 40 unit Insulin Human Regular (Humulin R Low) 0 units SC ACHS [facility] PRN Reason: Protocol Last Admin: 08/02/16 08:14 Dose: 1 units Latanoprost (Xalatan Opht) 0 ml OU HS [facility] Last Admin: 08/01/16 21:57 Dose: 2.5 ml Levothyroxine Sodium (Synthroid) 100 mcg PO 0600 [facility] Last Admin: 08/02/16 05:34 Dose: 100 mcg Mupirocin (Bactroban Ointment) 1 gm TOP BID [facility] Last Admin: 08/01/16 18:27 Dose: 1 u Ondansetron HCl (Zofran Inj) 4 mg IVP Q4H PRN PRN Reason: Nausea/Vomiting Pantoprazole Sodium (Protonix Ec Tab) 40 mg PO 0630 [facility] Last Admin: 08/02/16 05:34 Dose: 40 mg Senna/Docusate Sodium (Senokot S 50 Mg-8.6 Mg) 1 tab PO DAILY [facility] Last Admin: 08/01/16 09:41 Dose: 1 tab Tramadol HCl (Ultram) 50 mg PO Q6 PRN PRN Reason: Pain, severe (8-10) Last Admin: 08/02/16 06:31 Dose: 50 mg - Labs Labs: 08/02/16 06:30 08/02/16 06:30 - Constitutional Appears: No Acute Distress, Other (obese) - Head Exam Head Exam: ATRAUMATIC, NORMAL INSPECTION, NORMOCEPHALIC - Eye Exam Eye Exam: Normal appearance, PERRL. absent: Scleral icterus - ENT Exam ENT Exam: Mucous Membranes Dry - Neck Exam Neck Exam: Normal Inspection - Respiratory Exam Respiratory Exam: Clear to Ausculation Bilateral, NORMAL BREATHING PATTERN. absent: Rales, Rhonchi, Wheezes, Respiratory Distress, Stridor - Cardiovascular Exam Cardiovascular Exam: REGULAR RHYTHM, RRR, +S1, +S2 - GI/Abdominal Exam GI & Abdominal Exam: Distended (obese abomen), Soft, Normal Bowel Sounds. absent: Firm, Guarding, Rigid, Tenderness - Extremities Exam Extremities Exam: Pedal Edema (+1) - Back Exam Back Exam: NORMAL INSPECTION - Neurological Exam Neurological Exam: Alert, Awake, Oriented x3 - Psychiatric Exam Psychiatric exam: Normal Affect, Normal Mood - Skin Skin Exam: Dry, Normal Color, Warm Additional comments: + skin discoloration on the lower extremities. Left cheek with black eschar, non fluctuant, with small opening, no drainage, b/ l cheeks with edema. Left breast warm, 5-6 o'clock with mass like lesion, non mobile, fixed like mass around the lower portion of the nipple, + nipple retraction. No nipple discharge. Assessment and Plan - Assessment and Plan (Free Text) Assessment: Patient is a 76 y/o with PMH of CAD s/p stent placement and CABG, CHF, pulmonary HTN, HTN, IDDM, GABRIELLE, and normocytic anemia presenting with left breast mass. Plan: 1) left breast mass R/o malignancy - Breast u/s can't exclude malignancy, no abscess, + soft tissue edema. - no leukocytosis, afebrile, bcx so far no growth, abx discontinued. - Mammography pending - Surgery consult for possible biopsy. - Tumor markers- AFP, CA125, CEA to be sent 2) Folliculitis of the left side of the face - continue topical mupirocin 3) Intractable vomiting - will order flat plate abdomen - zofran prn 4) h/o CAD S/P CABG and stents - will continue asa, lipitor. - Patient is also on lasix for h/o CHF. 5) IDDM - HGBA1C 6.7 - Will consider d/c basal insulin, continue ISS - Patient will need po diabetic meds upon discharge. - Fingertsick ACHS - Carb controlled diet. 6) Normocytic anemia- - h/h at baseline, - will continue to monitor, - continue po iron. 7) hypothyroidism - low TSh, and high free T4 - Will reduce synthroid to 100 mcg daily 8) h/o constipation- - will continue dulcolax and senna. - Will consider adding miralax or milk of magnesia depending on the result of flat plate abdomen. 9) DVT/Gi prophylaxis: lovenox sc and protonix. Patient seen, examined and case discussed with the attending. <Dilip Fox - Last Filed: 08/04/16 09:19> Objective - Vital Signs/Intake and Output Vital Signs (last 24 hours): Temp Pulse Resp BP Pulse Ox 99 F 83 18 191/93 H 96 08/03/16 12:55 08/03/16 12:55 08/03/16 12:55 08/03/16 12:55 08/03/16 12:55 - Labs Labs: 08/03/16 06:40 08/03/16 06:40 PT 12.0 Seconds (9.9-11.8) H 08/03/16 08:55 INR 1.11 (0.93-1.08) H 08/03/16 08:55 APTT 26.4 Seconds (23.7-30.8) 08/03/16 08:55 Attending/Attestation - Attestation I have personally seen and examined this patient.: Yes I have fully participated in the care of the patient.: Yes I have reviewed all pertinent clinical information, including history, physical exam and plan: Yes Notes (Text): 08/04/16 09:19 Medical record note made by the resident after discussion with my direction and input after the patient was personally seen and examined by me. I have reviewed the chart and agree that the record accurately reflects by personal performance of the history, physical exam, data review, and medical decision-making, in the course for the patient. I have also personally directed the plan of care.
[2016-08-02] MEDS ORDERED: BISACODYL 10 MG PO SCH (10:00)
--- NOTE | 2016-08-02 10:14 | CP.PCM.PN ---
Subjective - Date & Time of Evaluation Date of Evaluation: 08/02/16 Time of Evaluation: 07:00 - Subjective Subjective: Pt was seen and examined at bedside. No overnight events as per nursing staff. Pt does report nausea. She denied fever, chills, sob, chest pains, d/c or urinary symptoms. Objective - Vital Signs/Intake and Output Vital Signs (last 24 hours): Temp Pulse Resp BP Pulse Ox 98.6 F 85 18 144/73 98 08/02/16 07:30 08/02/16 07:30 08/02/16 07:30 08/02/16 09:46 08/02/16 07:30 Intake and Output: 08/02/16 08/02/16 06:59 18:59 Intake Total 190 Balance 190 - Medications Medications: Current Medications Aspirin (Aspirin) 325 mg PO DAILY [facility] Last Admin: 08/02/16 09:46 Dose: 325 mg Atorvastatin Calcium (Lipitor) 10 mg PO DIN [facility] Last Admin: 08/01/16 16:46 Dose: 10 mg Bisacodyl (Dulcolax) 10 mg PO DAILY [facility] Last Admin: 08/02/16 09:45 Dose: 10 mg Dorzolamide/Timolol (Cosopt 2%-0.5% Opht) 1 drop OU BID [facility] Last Admin: 08/02/16 09:45 Dose: 1 u Enoxaparin Sodium (Lovenox) 40 mg SC DAILY [facility] PRN Reason: Protocol Last Admin: 08/02/16 09:45 Dose: 40 mg Ferrous Sulfate (Feosol) 324 mg PO TID [facility] Last Admin: 08/02/16 09:45 Dose: 324 mg Furosemide (Lasix) 40 mg PO DAILY [facility] Last Admin: 08/02/16 09:46 Dose: 40 mg Insulin Detemir (Levemir) 40 unit SC HS [facility] Last Admin: 08/01/16 21:57 Dose: 40 unit Insulin Human Regular (Humulin R Low) 0 units SC ACHS [facility] PRN Reason: Protocol Last Admin: 08/02/16 08:14 Dose: 1 units Latanoprost (Xalatan Opht) 0 ml OU HS [facility] Last Admin: 08/01/16 21:57 Dose: 2.5 ml Levothyroxine Sodium (Synthroid) 100 mcg PO 0600 [facility] Last Admin: 05/10/17 05:34 Dose: 100 mcg Mupirocin (Bactroban Ointment) 1 gm TOP BID [facility] Last Admin: 08/02/16 09:46 Dose: 1 u Ondansetron HCl (Zofran Inj) 4 mg IVP Q4H PRN PRN Reason: Nausea/Vomiting Last Admin: 08/02/16 09:38 Dose: 4 mg Pantoprazole Sodium (Protonix Ec Tab) 40 mg PO 0630 [facility] Last Admin: 08/02/16 05:34 Dose: 40 mg Senna/Docusate Sodium (Senokot S 50 Mg-8.6 Mg) 1 tab PO DAILY [facility] Last Admin: 08/02/16 09:46 Dose: 1 tab Tramadol HCl (Ultram) 50 mg PO Q6 PRN PRN Reason: Pain, severe (8-10) Last Admin: 08/02/16 06:31 Dose: 50 mg - Labs Labs: 08/02/16 06:30 08/02/16 06:30 - Constitutional Appears: No Acute Distress - Head Exam Head Exam: ATRAUMATIC, NORMAL INSPECTION, NORMOCEPHALIC - Eye Exam Eye Exam: EOMI, Normal appearance, PERRL Pupil Exam: NORMAL ACCOMODATION, PERRL - ENT Exam ENT Exam: Mucous Membranes Moist, Normal Exam - Neck Exam Neck Exam: Full ROM, Normal Inspection. absent: Lymphadenopathy - Respiratory Exam Respiratory Exam: Clear to Ausculation Bilateral, NORMAL BREATHING PATTERN - Cardiovascular Exam Cardiovascular Exam: REGULAR RHYTHM, +S1, +S2. absent: Murmur - GI/Abdominal Exam GI & Abdominal Exam: Soft, Normal Bowel Sounds. absent: Tenderness - Extremities Exam Extremities Exam: Full ROM, Normal Capillary Refill, Normal Inspection. absent : Joint Swelling, Pedal Edema - Back Exam Back Exam: NORMAL INSPECTION - Neurological Exam Neurological Exam: Alert, Awake, CN II-XII Intact, Normal Gait, Oriented x3 - Psychiatric Exam Psychiatric exam: Normal Affect, Normal Mood - Skin Skin Exam: Dry, Intact, Normal Color, Warm Assessment and Plan - Assessment and Plan (Free Text) Assessment: 76 F with left breast mass, consulted General Surgery for further evaluation - US reviewed and concerning for mass, negative for abscess - MRI not offered at this location, Mammogram pending - likely to follow with FNA tomorrow after imaging - continue medical management as per primary team Seen reviewed and discussed with attending
--- NOTE | 2016-08-02 15:21 | CP.PCM.PN ---
Subjective - Date & Time of Evaluation Date of Evaluation: 08/02/16 Time of Evaluation: 10:30 - Subjective Subjective: Comfortable in bed, not in distress, afebrile, no breast pain. Objective - Vital Signs/Intake and Output Vital Signs (last 24 hours): Temp Pulse Resp BP Pulse Ox 98.6 F 85 18 144/73 98 08/02/16 07:30 08/02/16 07:30 08/02/16 07:30 08/02/16 09:46 08/02/16 07:30 Intake and Output: 08/02/16 08/02/16 06:59 18:59 Intake Total 190 600 Balance 190 600 - Medications Medications: Current Medications Aspirin (Aspirin) 325 mg PO DAILY [facility] Last Admin: 08/02/16 09:46 Dose: 325 mg Atorvastatin Calcium (Lipitor) 10 mg PO DIN [facility] Last Admin: 08/01/16 16:46 Dose: 10 mg Bisacodyl (Dulcolax) 10 mg PO DAILY [facility] Last Admin: 08/02/16 09:45 Dose: 10 mg Dorzolamide/Timolol (Cosopt 2%-0.5% Opht) 1 drop OU BID [facility] Last Admin: 08/02/16 09:45 Dose: 1 u Enoxaparin Sodium (Lovenox) 40 mg SC DAILY [facility] PRN Reason: Protocol Last Admin: 08/02/16 09:45 Dose: 40 mg Ferrous Sulfate (Feosol) 324 mg PO TID [facility] Last Admin: 08/02/16 13:23 Dose: 324 mg Furosemide (Lasix) 40 mg PO DAILY [facility] Last Admin: 08/02/16 09:46 Dose: 40 mg Insulin Detemir (Levemir) 40 unit SC HS [facility] Last Admin: 08/01/16 21:57 Dose: 40 unit Insulin Human Regular (Humulin R Low) 0 units SC ACHS [facility] PRN Reason: Protocol Last Admin: 08/02/16 12:09 Dose: Not Given Latanoprost (Xalatan Opht) 0 ml OU HS [facility] Last Admin: 08/01/16 21:57 Dose: 2.5 ml Levothyroxine Sodium (Synthroid) 100 mcg PO 0600 [facility] Last Admin: 08/02/16 05:34 Dose: 100 mcg Mupirocin (Bactroban Ointment) 1 gm TOP BID [facility] Last Admin: 08/02/16 09:46 Dose: 1 u Ondansetron HCl (Zofran Inj) 4 mg IVP Q4H PRN PRN Reason: Nausea/Vomiting Last Admin: 08/02/16 09:38 Dose: 4 mg Pantoprazole Sodium (Protonix Ec Tab) 40 mg PO 0630 [facility] Last Admin: 08/02/16 05:34 Dose: 40 mg Senna/Docusate Sodium (Senokot S 50 Mg-8.6 Mg) 1 tab PO DAILY [facility] Last Admin: 08/02/16 09:46 Dose: 1 tab Tramadol HCl (Ultram) 50 mg PO Q6 PRN PRN Reason: Pain, severe (8-10) Last Admin: 08/02/16 06:31 Dose: 50 mg - Labs Labs: 08/02/16 06:30 08/02/16 06:30 - Constitutional Appears: Non-toxic, No Acute Distress - Head Exam Head Exam: NORMAL INSPECTION - ENT Exam ENT Exam: Mucous Membranes Moist - Neck Exam Neck Exam: absent: Lymphadenopathy, Meningismus - Respiratory Exam Respiratory Exam: Decreased Breath Sounds - Cardiovascular Exam Cardiovascular Exam: +S1, +S2 - GI/Abdominal Exam GI & Abdominal Exam: Soft. absent: Tenderness Assessment and Plan - Assessment and Plan (Free Text) Plan: Assessment breast mass on the right without evidence of cellulitis - R/O malignancy chronic CHF Asymptomatic bacteriuria with E. faecalis HTN DM CAD S/P CABG (05/04/2016) morbid obesity with BMI 45 Plan reviewed results of the ultrasound - solid masses noted - will follow up results of the Mammogram Will continue to monitor off antibiotics Will continue to monitor clinically
--- NOTE | 2016-08-02 15:53 | MAM ---
PROCEDURE: MAMMO DIAGNOSTIC BILAT INC CAD HISTORY: Left breast masses per the left breast ultrasound 07/31/2016 patient had left triple bypass surgery 05/05/2016 -the no mid sternal approach was utilized. Arias has a left upper outer breast skin changes which the patient has informed me were sites utilize 4 this bypass surgery as well as a left inframammary approach for the left triple bypass surgery. Patient is currently on antibiotics is well. Patient is status post bilateral breast reduction surgery in the 1970s TECHNIQUE: Bilateral MLO and bilateral CC views were obtained. Additional views were obtained -as needed. CAD was applied. COMPARISON: 08/14/2015 screening mammogram. And left breast ultrasound 07/31/2016 FINDINGS: MAMMOGRAM: The breast are almost entirely fatty. There is interval change seen in the left breast the left retro date infra-areolar location in the deep central left breast. Because of patient's discomfort these are the best possible images obtainable particular regarding the posterior depth The patient has left infra areolar diffuse firmness and left inframammary nodular firmness upon palpation. These areas of nodular firmness correspond to the mammographic areas of interval nodular focal asymmetries- a amorphous masses which are reported on the recent left breast ultrasound exam Interval left skin thickening is also noted. No change in the right breast is seen Benign-appearing calcifications are present. . IMPRESSION: Patient's clinical presentation corresponds to two firm palpable areas of nodularity which correspond to two separate amorphous developing nodular asymmetries -two amorphous masslike mammographic findings which have ultrasound correlates. Given the cardiac intervention sites , post procedural hematoma like masses with more fibrotic changes rather than fluid like changes are 1 consideration. The possibly a superimposed infection/ cellulitis also needs to be considered. However, malignancy is not excluded. According to the patient, she is having these 2 areas biopsied by her surgeon . Close continued follow-up is recommended. If biopsy results are benign, follow-up left mammogram with left breast ultrasound 1 month is recommended. BI-RADS 3 Probably Benign. Short term follow-up imaging in 1 month as above is recommended. The State [facility] has passed a law, effective July 24, 2013. Please be advised that we are required by this law to put this notification in all mammography result reports. This [place] Breast Density Law requires all patients and healthcare providers, regardless of breast density, to receive the information typed below: Your mammogram may show dense breast tissue as determined by the Breast Imaging Reporting and Data System established by the [employer]. Dense breast tissue is very common and is not abnormal. However, in some cases, dense breast tissue can make it harder to find cancer on a mammogram and may also be associated with a risk factor for breast cancer. Discuss this and other risks for breast cancer that pertain to your personal medical history. A report of your results was sent to your health care provider. You may also find more information about breast density at the website of the [employer], www.acr.org.
--- NOTE | 2016-08-02 21:08 | PN ---
DATE: 08/02/2016 The patient is without shortness of breath, without chest pain. PHYSICAL EXAMINATION: VITAL SIGNS: Stable. NECK: Negative JVD. LUNGS: Without rales. HEART: Reveals S1, S2. EXTREMITIES: Without edema. LABORATORIES: Not ready for today. IMPRESSION: 1. Stable angina. 2. Recent coronary artery bypass surgery. 3. Morbid obesity. 4. Hypertension. 5. Hypercholesterolemia. PLAN: Given these findings, the patient's cardiac status is stable. There are no contraindications to possible intervention for her left breast mass. Gigi Baez MD cc: [id number] TT: 08/02/2016 21:07:06 Confirmation # [id number] Dictation # [id number] tn
[2016-08-02] MEDS: Latanoprost 2.5 ml Opht Soln OU SCH (21:30)
[2016-08-02] MEDS: Insulin Detemir 100 units/ml Vial (Levemir) SC SCH (21:30)
[2016-08-03] MEDS: Levothyroxine 100 MCG TAB PO SCH (05:28)
[2016-08-03] MEDS: Pantoprazole 40 mg EC Tab PO SCH (06:12)
[2016-08-03 06:49] LABS: ADD MANUAL DIFF? NO
[2016-08-03 07:12] LABS: BASO # 0.03 K/mm3 (0.0-2.0); BASO % 0.5 % (0.0-3.0); EOS # 0.2 (0.0-0.7); EOS % 2.7 % (1.5-5.0); GRAN # 2.74 (1.4-6.5); GRAN % 50.3 % (50.0-68.0); HEMATOCRIT 34.5 % (36.0-48.0); LYMPH # 2.1 (1.2-3.4); LYMPH % 38.6 % (22.0-35.0); MEAN CELL VOLUME 85.2 fL (80.0-105.0); MEAN CORPUSCULAR HEMOGLOBIN 26.4 pg (25.0-35.0); MEAN PLATELET VOLUME 10.3 fl (7.0-11.0); MONO # 0.4 (0.1-0.6); MONO % 7.9 % (1.0-6.0); PLATELET COUNT 234 10^3/uL (120.0-450.0); RED CELL DISTRIBUTION WIDTH 16.3 % (11.5-14.5); WHITE BLOOD COUNT 5.5 10^3/ul (4.5-11.0)
[2016-08-03 07:21] LABS: CALCIUM 9.4 mg/dL (8.4-10.5)
[2016-08-03] MEDS: Insulin Reg-LOW-Coverage SC SCH ×3 (07:30→17:02)
--- NOTE | 2016-08-03 08:48 | RAD ---
HISTORY: r/o obstruction COMPARISON: No prior. FINDINGS: BOWEL: Normal. No obstruction. No free air. BONES: Normal. OTHER FINDINGS: None. IMPRESSION: No active disease.
[2016-08-03] MEDS: Bisacodyl 5mg EC Tab PO SCH (09:23)
[2016-08-03 10:01] LABS: INR 1.11 (0.93-1.08); PARTIAL THROMBOPLASTIN TIME 26.4 Seconds (23.7-30.8)
[2016-08-03 10:35] LABS: URINE APPEARANCE CLEAR (CLEAR); URINE BILIRUBIN NEGATIVE (NEGATIVE); URINE BLOOD NEGATIVE (NEGATIVE); URINE COLOR YELLOW (YELLOW); URINE GLUCOSE (UA) NEGATIVE (NEGATIVE); URINE KETONE NEGATIVE (NEGATIVE); URINE LEUKOCYTE ESTERASE NEGATIVE Leu/uL (NEGATIVE); URINE PROTEIN 30 mg/dL (<30 mg/dL); URINE UROBILINOGEN 0.2 E.U./dL (<1 E.U./dL)
[2016-08-03 10:41] LABS: URINE BACTERIA FEW (NEG); URINE RBC 0 - 2 /hpf (0-2); URINE WBC 0 - 2 /hpf (0-6)
--- NOTE | 2016-08-03 10:54 | CARD ---
APPROVED REPORT EKG Measurement Heart [id number] <Conclusion> Normal sinus rhythm PRWP V 1 - 6, possibly lead placement Diffuse T wave inversions Possible IMI, age unknown
[2016-08-03 11:28] VITALS: RESP 18; TEMP 99
[2016-08-03] MEDS ORDERED: Bupivacaine 0.5% Inj(30mL) ONE (11:40)
[2016-08-03] MEDS ORDERED: Lidocaine 1% Inj (20ml) ONE (11:40)
--- NOTE | 2016-08-03 12:29 | PCM.SURG1 ---
Surgeon's Initial Post Op Note - Surgeon's Notes Surgeon: Dr. Daugherty Apparel Merchandiser: Dr. Resendiz PGY1, Andree Cobb OMS3 Type of Anesthesia: IV Sedation Pre-Operative Diagnosis: L breast mass Operative Findings: see dictation Post-Operative Diagnosis: same Operation Performed: Ultrasound guided Left breast FNA Specimen/Specimens Removed: L upper breast mass Bx. L lower breast mass Bx. L breast mass aspiration Estimated Blood Loss: EBL {In ML}: 5 Post-Op Condition: Good Date of Surgery/Procedure: 08/03/16 Time of Surgery/Procedure: 12:00
[2016-08-03] MEDS ORDERED: Sodium Chloride 0.9% 1,000 ML IV SCH (12:30)
[2016-08-03 12:38] VITALS: O2SAT 96
[2016-08-03 12:59] VITALS: BP 191/93; PULSE 83
--- NOTE | 2016-08-03 13:21 | PN ---
DATE: 08/03/2016 The patient is asymptomatic. PHYSICAL EXAMINATION: VITAL SIGNS: Stable. NECK: Negative JVD. LUNGS: Without rales. HEART: Revealed S1, S2. EXTREMITIES: Without edema. LABORATORIES: Unchanged. IMPRESSION: 1. The patient is for biopsy of the breast mass today. 2. Stable angina. 3. History of recent coronary artery bypass surgery. 4. Morbid obesity. 5. Diabetes mellitus. Given these findings, the suspicion is that this is a hematoma from the residual thoracotomy done for her isolated internal mammary implantation. Gigi Baez MD cc: [id number] TT: 08/03/2016 13:21:36 Confirmation # [id number] Dictation # [id number]
[2016-08-03] MEDS: Dorzolamide 2%/Timolol 0.5% 100 DROP/10 ML BOTTLE OU SCH (14:06)
[2016-08-03] MEDS: Docusate-Senna 50 mg-8.6 mg Tab PO SCH (14:07)
--- NOTE | 2016-08-03 14:30 | PN ---
DATE: 08/03/2016 The patient is in bed in no acute distress, nontoxic. PHYSICAL EXAMINATION: VITAL SIGNS: Temperature is 99, blood pressure is 190/70, respiratory rate of 16. HEENT: Unremarkable. NECK: Supple. LUNGS: Have decreased breath sounds. HEART: Normal S1, S2. ABDOMEN: Soft, nontender. LABORATORY EXAMINATION: Reveals a white count of 5, hemoglobin of 10, platelets of 234, BUN of 14, c reatinine of 1.1. Microbiology reveals the blood cultures are no growth. Dr. Gigi Baez's note is cecille mei. ASSESSMENT AND PLAN: A 76-year-old with a breast mass, probably hematoma from the recent surgery and no evidence of cellulitis and chronic congestive heart failure and with asymptomatic bacteriuria, hy pertension, diabetes, history of coronary artery disease and had coronary bypass graft in 04/2016 with morbid obesity, body mass index of 45 and currently off of antibiotics. We will follow with you. Corby Caballero MD cc: [id number] TT: 08/03/2016 14:30:25 Confirmation # [id number] Dictation # [id number] tn
--- NOTE | 2016-08-03 15:31 | CP.PCM.DIS ---
<Sulma Mora - Last Filed: 08/04/16 08:51> Provider - Provider Date of Admission: 08/02/16 15:39 Attending physician: Bam Garner MD Primary care physician: Bam Garner MD Consults: Surgery- Dr Daugherty ID: Dr Wu Time Spent in preparation of Discharge (in minutes): 40 Diagnosis - Discharge Diagnosis (1) Cellulitis of breast Status: Resolved (2) Breast mass Status: Acute (3) Intractable vomiting with nausea Status: Resolved (4) Constipation Status: Chronic (5) Diabetes Status: Chronic (6) Hypertension Status: Chronic (7) CAD (coronary artery disease) of artery bypass graft Status: Chronic (8) Coronary artery disease Status: Chronic Priority: High (9) Obesity Status: Chronic (10) Folliculitis Status: Acute Hospital Course - Lab Results Lab Results: Most Recent Lab Values WBC 5.5 10^3/ul (4.5-11.0) 08/03/16 06:40 RBC 4.05 10^6/uL (3.5-6.1) 08/03/16 06:40 Hgb 10.7 gm/dL (12.0-16.0) L 08/03/16 06:40 Hct 34.5 % (36.0-48.0) L 08/03/16 06:40 MCV 85.2 fL (80.0-105.0) 08/03/16 06:40 MCH 26.4 pg (25.0-35.0) 08/03/16 06:40 MCHC 31.0 g/dl (31.0-37.0) 08/03/16 06:40 RDW 16.3 % (11.5-14.5) H 08/03/16 06:40 Plt Count 234 10^3/uL (120.0-450.0) 08/03/16 06:40 MPV 10.3 fl (7.0-11.0) 08/03/16 06:40 Gran % 50.3 % (50.0-68.0) 08/03/16 06:40 Lymph % (Auto) 38.6 % (22.0-35.0) H 08/03/16 06:40 [place] % (Auto) 7.9 % (1.0-6.0) H 08/03/16 06:40 Eos % (Auto) 2.7 % (1.5-5.0) 08/03/16 06:40 Baso % (Auto) 0.5 % (0.0-3.0) 08/03/16 06:40 Gran # 2.74 (1.4-6.5) 08/03/16 06:40 Lymph # 2.1 (1.2-3.4) 08/03/16 06:40 [place] # 0.4 (0.1-0.6) 08/03/16 06:40 Eos # 0.2 (0.0-0.7) 08/03/16 06:40 Baso # 0.03 K/mm3 (0.0-2.0) 08/03/16 06:40 PT 12.0 Seconds (9.9-11.8) H 08/03/16 08:55 INR 1.11 (0.93-1.08) H 08/03/16 08:55 APTT 26.4 Seconds (23.7-30.8) 08/03/16 08:55 Sodium 141 mmol/L (132-148) 08/03/16 06:40 Potassium 4.0 mmol/L (3.6-5.0) 08/03/16 06:40 Chloride 102 mmol/L (98-107) 08/03/16 06:40 Carbon Dioxide 32 mmol/L (21-33) 08/03/16 06:40 Anion Gap 11 (10-20) 08/03/16 06:40 BUN 14 mg/dL (7-21) 08/03/16 06:40 Creatinine 1.1 mg/dL (0.5-1.4) 08/03/16 06:40 Est GFR ( Amer) 58 08/03/16 06:40 Est GFR (Non-Af Amer) 48 08/03/16 06:40 Random Glucose 111 mg/dL (70-110) H 08/03/16 06:40 Hemoglobin A1c 6.7 % (4.2-6.5) H D 08/01/16 06:30 Calcium 9.4 mg/dL (8.4-10.5) 08/03/16 06:40 Total Bilirubin 0.5 mg/dL (0.2-1.3) 08/01/16 06:30 AST 21 U/L (15-39) 08/01/16 06:30 ALT 25 U/L (7-56) 08/01/16 06:30 Alkaline Phosphatase 81 U/L (38-133) 08/01/16 06:30 NT-Pro-B Natriuret Pep 4810 pg/mL (0-450) H 08/01/16 06:30 Total Protein 7.0 g/dL (5.8-8.3) 08/01/16 06:30 Albumin 3.3 g/dL (3.0-4.8) 08/01/16 06:30 Globulin 3.6 gm/dL 08/01/16 06:30 Albumin/Globulin Ratio 0.9 (1.1-1.8) L 08/01/16 06:30 Alpha Fetoprotein 1.6 ng/mL (0.0-7.5) 08/02/16 13:00 Carcinoembryonic Ag 2.0 ng/mL (0.0-3.0) 08/02/16 13:00 CA 125 Antigen 60.8 U/mL (0-35) H 08/02/16 13:00 Free T4 2.27 ng/dL (0.78-2.19) H 08/01/16 08:30 TSH 3rd Generation 0.02 mIU/mL (0.46-4.68) L 08/01/16 06:30 Urine Color Yellow (YELLOW) 08/03/16 10:00 Urine Appearance Clear (CLEAR) 08/03/16 10:00 Urine pH 6.0 (4.7-8.0) 08/03/16 10:00 Ur Specific [place] 1.025 (1.005-1.035) 08/03/16 10:00 Urine Protein 30 mg/dL (<30 mg/dL) H 08/03/16 10:00 Urine Glucose (UA) Negative mg/dL (NEGATIVE) 08/03/16 10:00 Urine Ketones Negative mg/dL (NEGATIVE) 08/03/16 10:00 Urine Blood Negative (NEGATIVE) 08/03/16 10:00 Urine Nitrate Negative (NEGATIVE) 08/03/16 10:00 Urine Bilirubin Negative (NEGATIVE) 08/03/16 10:00 Urine Urobilinogen 0.2 E.U./dL (<1 E.U./dL) 08/03/16 10:00 Ur Leukocyte Esterase Negative [place]/uL (NEGATIVE) 08/03/16 10:00 Urine RBC 0 - 2 /hpf (0-2) 08/03/16 10:00 Urine WBC 0 - 2 /hpf (0-6) 08/03/16 10:00 Ur Epithelial Cells 4 - 5 /hpf (0-5) 08/03/16 10:00 Urine Bacteria Few (NEG) 08/03/16 10:00 - Hospital Course Hospital Course: Patient is a 76 y/o F with PMH of CAD s/p stent placement and CABG, CHF, pulmonary HTN, HTN, IDDM, GABRIELLE, and normocytic anemia presenting with left breast mass and pain. Prior to presenting to the ED, patient was at PMD's office ( Dr Garner), where she was suspected to have breast mass, with possibly cellulites and breast abscess. ID was consulted. Basic labs in the ER were all normal, except stable anemia. Patient underwent breast ultrasound which revealed no abscess, had a mass with inability to exclude malignancy. Patient underwent mammography revealing BIRAD 3 with inconclusive results. Clinical Rehabilitation Specialist was consulted for pre surgical clearance. On 08/03 patient had punched and FNA biopsy. Cancer markers were also sent. Patient had a short course of antibiotics for possible left breast cellulites and folliculitis of the left side of the face. Blood culture so far with no growth. In addition patient complained with intractable vomiting, flat plate abdomen was negative for obstruction. Patient's TSH was low, with elevated free t4, patient's synthroid was reduced to 100 mcg daily. Patient was discharged home on 08/03 and will follow up with Dr Garner in the office. Patient was also told to follow up with Dr Daugherty in 1-2 weeks. Patient was giving a script of omnicef. - Date & Time of H&P Date of H&P: 07/31/16 Time of H&P: 23:26 Discharge Exam - Head Exam Head Exam: NORMAL INSPECTION - Eye Exam Eye Exam: EOMI, Normal appearance, PERRL. absent: Scleral icterus - ENT Exam ENT Exam: Mucous Membranes Moist - Neck Exam Neck exam: Normal Inspection - Respiratory Exam Respiratory Exam: Clear to PA & Lateral, NORMAL BREATHING PATTERN, UNREMARKABLE. absent: Rales, Rhonchi, Wheezes, Respiratory Distress, Stridor - Cardiovascular Exam Cardiovascular Exam: REGULAR RHYTHM, RRR, +S1, +S2 - GI/Abdominal Exam GI & Abdominal Exam: Normal Bowel Sounds, Unremarkable. absent: Distended ( obese abdomen ), Soft, Tenderness - Extremities Exam Extremities exam: pedal edema - Back Exam Back exam: NORMAL INSPECTION - Neurological Exam Neurological exam: Alert, Oriented x3 - Psychiatric Exam Psychiatric exam: Normal Affect, Normal Mood - Skin Skin Exam: Dry, Intact, Normal Color, Warm Discharge Plan - Discharge Medications Prescriptions: Cefdinir [Omnicef] 300 mg PO BID #10 cap Levothyroxine [Synthroid] 100 mcg PO 0600 #30 tab - Follow Up Plan Condition: FAIR Disposition: HOME/ ROUTINE Patient education suggested?: Yes Instructions: Fine-needle Breast Biopsy (DC) Additional Instructions: 1) Can take shower tomorrow as per surgery team 2) Follow up with Dr Daugherty in the office in 1-2 weeks 3) Follow up with Dr Garner in the office 4) Take the antibiotics for 5 days 5) Take the syntroid 100 mcg daily instead of 125 mcg Referrals: Bam Garner MD [Primary Care Provider] - Nahid Daugherty MD [Staff Provider] - <Bam Garner - Last Filed: 08/25/16 09:03> Provider - Provider Date of Admission: 07/31/16 22:55 Attending physician: Bam Garner MD Primary care physician: Bam Garner MD Hospital Course - Lab Results Lab Results: Micro Results 08/03/16 13:05 Other: Please Indicate Gram Stain - Final 08/03/16 13:05 Other: Please Indicate Anaerobic Culture - Final NO ANAEROBES ISOLATED. 08/03/16 13:05 Other: Please Indicate Wound Culture - Final No growth. Most Recent Lab Values WBC 5.5 10^3/ul (4.5-11.0) 08/03/16 06:40 RBC 4.05 10^6/uL (3.5-6.1) 08/03/16 06:40 Hgb 10.7 gm/dL (12.0-16.0) L 08/03/16 06:40 Hct 34.5 % (36.0-48.0) L 08/03/16 06:40 MCV 85.2 fL (80.0-105.0) 08/03/16 06:40 MCH 26.4 pg (25.0-35.0) 08/03/16 06:40 MCHC 31.0 g/dl (31.0-37.0) 08/03/16 06:40 RDW 16.3 % (11.5-14.5) H 08/03/16 06:40 Plt Count 234 10^3/uL (120.0-450.0) 08/03/16 06:40 MPV 10.3 fl (7.0-11.0) 08/03/16 06:40 Gran % 50.3 % (50.0-68.0) 08/03/16 06:40 Lymph % (Auto) 38.6 % (22.0-35.0) H 08/03/16 06:40 [place] % (Auto) 7.9 % (1.0-6.0) H 08/03/16 06:40 Eos % (Auto) 2.7 % (1.5-5.0) 08/03/16 06:40 Baso % (Auto) 0.5 % (0.0-3.0) 08/03/16 06:40 Gran # 2.74 (1.4-6.5) 08/03/16 06:40 Lymph # 2.1 (1.2-3.4) 08/03/16 06:40 [place] # 0.4 (0.1-0.6) 08/03/16 06:40 Eos # 0.2 (0.0-0.7) 08/03/16 06:40 Baso # 0.03 K/mm3 (0.0-2.0) 08/03/16 06:40 PT 12.0 Seconds (9.9-11.8) H 08/03/16 08:55 INR 1.11 (0.93-1.08) H 08/03/16 08:55 APTT 26.4 Seconds (23.7-30.8) 08/03/16 08:55 Sodium 141 mmol/L (132-148) 08/03/16 06:40 Potassium 4.0 mmol/L (3.6-5.0) 08/03/16 06:40 Chloride 102 mmol/L (98-107) 08/03/16 06:40 Carbon Dioxide 32 mmol/L (21-33) 08/03/16 06:40 Anion Gap 11 (10-20) 08/03/16 06:40 BUN 14 mg/dL (7-21) 08/03/16 06:40 Creatinine 1.1 mg/dL (0.5-1.4) 08/03/16 06:40 Est GFR ( Amer) 58 08/03/16 06:40 Est GFR (Non-Af Amer) 48 08/03/16 06:40 Random Glucose 111 mg/dL (70-110) H 08/03/16 06:40 Hemoglobin A1c 6.7 % (4.2-6.5) H D 08/01/16 06:30 Calcium 9.4 mg/dL (8.4-10.5) 08/03/16 06:40 Total Bilirubin 0.5 mg/dL (0.2-1.3) 08/01/16 06:30 AST 21 U/L (15-39) 08/01/16 06:30 ALT 25 U/L (7-56) 08/01/16 06:30 Alkaline Phosphatase 81 U/L (38-133) 08/01/16 06:30 NT-Pro-B Natriuret Pep 4810 pg/mL (0-450) H 08/01/16 06:30 Total Protein 7.0 g/dL (5.8-8.3) 08/01/16 06:30 Albumin 3.3 g/dL (3.0-4.8) 08/01/16 06:30 Globulin 3.6 gm/dL 08/01/16 06:30 Albumin/Globulin Ratio 0.9 (1.1-1.8) L 08/01/16 06:30 Alpha Fetoprotein 1.6 ng/mL (0.0-7.5) 08/02/16 13:00 Carcinoembryonic Ag 2.0 ng/mL (0.0-3.0) 08/02/16 13:00 CA 125 Antigen 60.8 U/mL (0-35) H 08/02/16 13:00 Free T4 2.27 ng/dL (0.78-2.19) H 08/01/16 08:30 TSH 3rd Generation 0.02 mIU/mL (0.46-4.68) L 08/01/16 06:30 Urine Color Yellow (YELLOW) 08/03/16 10:00 Urine Appearance Clear (CLEAR) 08/03/16 10:00 Urine pH 6.0 (4.7-8.0) 08/03/16 10:00 Ur Specific [place] 1.025 (1.005-1.035) 08/03/16 10:00 Urine Protein 30 mg/dL (<30 mg/dL) H 08/03/16 10:00 Urine Glucose (UA) Negative mg/dL (NEGATIVE) 08/03/16 10:00 Urine Ketones Negative mg/dL (NEGATIVE) 08/03/16 10:00 Urine Blood Negative (NEGATIVE) 08/03/16 10:00 Urine Nitrate Negative (NEGATIVE) 08/03/16 10:00 Urine Bilirubin Negative (NEGATIVE) 08/03/16 10:00 Urine Urobilinogen 0.2 E.U./dL (<1 E.U./dL) 08/03/16 10:00 Ur Leukocyte Esterase Negative [place]/uL (NEGATIVE) 08/03/16 10:00 Urine RBC 0 - 2 /hpf (0-2) 08/03/16 10:00 Urine WBC 0 - 2 /hpf (0-6) 08/03/16 10:00 Ur Epithelial Cells 4 - 5 /hpf (0-5) 08/03/16 10:00 Urine Bacteria Few (NEG) 08/03/16 10:00 Attending/Attestation - Attestation I have personally seen and examined this patient.: Yes I have fully participated in the care of the patient.: Yes I have reviewed all pertinent clinical information, including history, physical exam and plan: Yes Notes (Text): 08/25/16 09:03 Medical record note made by the resident after discussion with my direction and input after the patient was personally seen and examined by me. I have reviewed the chart and agree that the record reflects my personal performance of history, physical, data review and course for the patient that I have planned.
--- NOTE | 2016-08-07 12:16 | OP ---
PROCEDURE DATE: 08/03/2016 PREOPERATIVE DIAGNOSIS: Mass of the left breast. POSTOPERATIVE DIAGNOSIS: Mass of the left breast. OPERATION PERFORMED: Needle biopsy of the left breast using the ultrasound. DESCRIPTION OF PROCEDURE: In the operating room, the patient was identified by name, number, procedu re, laterality and the consent. The left breast was examined. There was some ecchymosis on the supe rior edge about at 7 o'clock or 8 o'clock. There was an old incision on the chest wall very close to the palpable mass, making the likely diagnosis a hematoma. The lower circular mass was aspirated, s ome old blood was found. This was cultured aerobically and anaerobically. Two small incisions were made in the skin with an 11 blade and the Garrett-Cut needle was placed ____ multiple passes through the palpable mass using the ultrasound as necessary. Approximately 6 or 7 cores were sent. Some of this had hemorrhage within the fat suggesting this was a hematoma. No evidence of cancer. The wounds we re injected with Marcaine, closed with a Vicryl and a light pressure dressing was applied followed by a Surgi-Bra. Nahid Daugherty MD cc: [phone] TT: 08/07/2016 12:16:15
== END 2016-08-03 18:25 | disposition home or self-care (01) ==
LOC: ED 18:45 → ERH 22:55 → 5RNO 08-01 02:51 → INTOOBSV 08-02 15:39 → OBSVTOIN 08-02 15:39
PROVIDERS: ADMIT Internal Medicine; ATTEND Internal Medicine
DX: N61.0 Mastitis without abscess (principal); I25.810 Atherosclerosis of coronary artery bypass graft(s) without angina pectoris; I27.2 Other secondary pulmonary hypertension; Z68.42 Body mass index [BMI] 45.0-49.9, adult; I11.0 Hypertensive heart disease with heart failure; E66.01 Morbid (severe) obesity due to excess calories; I50.9 Heart failure, unspecified; E11.9 Type 2 diabetes mellitus without complications; D64.9 Anemia, unspecified; G47.33 Obstructive sleep apnea (adult) (pediatric); H40.9 Unspecified glaucoma; N60.02 Solitary cyst of left breast; E78.00 Pure hypercholesterolemia, unspecified; I25.118 Atherosclerotic heart disease of native coronary artery with other forms of angina pectoris; K59.00 Constipation, unspecified; L73.9 Follicular disorder, unspecified; N64.4 Mastodynia; Z79.4 Long term (current) use of insulin; Z80.8 Family history of malignant neoplasm of other organs or systems; Z86.73 Personal history of transient ischemic attack (TIA), and cerebral infarction without residual deficits; Z90.710 Acquired absence of both cervix and uterus; Z95.5 Presence of coronary angioplasty implant and graft; R40.2412 Glasgow coma scale score 13-15, at arrival to emergency department; Z80.3 Family history of malignant neoplasm of breast; R55 Syncope and collapse; E03.9 Hypothyroidism, unspecified; R82.71 Bacteriuria; B95.2 Enterococcus as the cause of diseases classified elsewhere
CPT/HCPCS: 19101; 36415; 71010; 74000; 76641; 80048; 80053; 81001; 82105; 82378; 83036; 83880; 84439; 84443; 85025; 85027; 85610; 85730; 86304; 87040; 87070; 87075; 88307; 93005; 96365; 97116; 97161; 99283; G0204; G0378; G8978; G8979; J0696; J0712; J1650; J2405; J7120

== ENCOUNTER 2016-12-07 10:10 | Day surgery (SDC) | payer MEDICARE ==
[2016-12-04 13:57] VITALS: BMI 39.6
[2016-12-07 10:45] VITALS: BP 147/80; PULSE 84; RESP 20; TEMP 98.5; O2SAT 99
[2016-12-07] MEDS ORDERED: Lidocaine 2% Inj (20ml) ONE (11:14)
[2016-12-07] MEDS ORDERED: Propofol 10 mg/ml Inj (20 ML) ONE (11:14)
[2016-12-07] MEDS ORDERED: ePHEDrine 50 mg/ml Inj ONE (12:03)
--- NOTE | 2016-12-07 12:58 | PCM.RRT ---
<Juwan Domínguez - Last Filed: 12/07/16 12:52> NURSES' ASSOCIATION COUNSELOR Nurse Assessment - Situation Date: 12/07/16 Time NURSES' ASSOCIATION COUNSELOR was called: 11:55 NURSES' ASSOCIATION COUNSELOR Responder Arrival Time: 11:56 NURSES' ASSOCIATION COUNSELOR Location:: Endoscopy Room Number: 3 NURSES' ASSOCIATION COUNSELOR Reason for Call: Bradycardia, Hypotension, O2 Saturation below 90% NURSES' ASSOCIATION COUNSELOR Called By: Physician - Respiratory Oxygen Delivery Method: Non Rebreather @% Oxygen Flow Rate: 15 Was the Patient Ventilated with Bag/Mask 100% O2?: Yes (initially) Secretions Suctioned?: Yes Was the Patient Intubated?: No - Diagnostic Test Ordered EKG: Yes (LAD, NSR) Chest X-Ray: Yes (vascular congestion) - Vital Signs Vital Sign: BP 205/92 I.Reason for NURSES' ASSOCIATION COUNSELOR - A) Acute Change in Patient: Subjective: Juwan Domínguez D.O. PGY-2, D.O. On Duty (D.O.O.D.) [place] call for rapid response in Endo. Responded at bedside. Anesthesiologist and power brake rebuilder present at bedside with nursing staff as well as GI fellow. Patient had just finished EGD and was being position for colonoscopy when she had an episode of desaturation. 76 year old female with hx of stents, CHF, saturation in the 80s, not placed flat as has hx of CHF but was lowered, noted at bedside to have "chunky" sounding breathing. Had bradycardia along with the desaturation and some hypotension per nursing staff. - Neurological Status (Select all that apply): Alert, Responsive, Verbal, Follows Commands - Respiratory Oxygen Delivery Method: Venturi Mask @% Oxygen Flow Rate: 6 - Constitutional Appears: Other (obese elderly female) - Head Head Exam: ATRAUMATIC, NORMOCEPHALIC - Eyes Eye Exam: PERRL - Respiratory Exam Respiratory Exam: Rales (bibasilar) - Cardiovascular Exam Cardiovascular Exam: Tachycardia, +S1, +S2 - GI/Abdominal Exam GI & Abdominal Exam: Soft. absent: Tenderness - Neurological Exam Neurological Exam: Alert, Awake Plan - Assessment of Findings&Treatment Plan 76 year old female with rapid response for desaturation, hypotension and bradycardia Patient was sat up and started on non-rebreather HR when arrived had actually become tachycardia in the 120s EKG performed, shows LAD and NSR CXR performed, vascular congestion Patient saturations improved, found to have A LOT of secretions Used yankaeur to suction intermittently Per anesthesia had only received propofol and 50mcg of fentanyl BP improved from 200s systolic to the 160s-170s Anesthesia began to wear off and patient more awake and alert, able to follow commands Patient continues to put out a lot of secretions but able to spit out on command Nursing staff discussed with ER nursing staff Escorted the patient down to the ER Gave sign out to the ER attending Will place call out to Dr. Fox <Dilip Fox - Last Filed: 01/05/17 17:25> NURSES' ASSOCIATION COUNSELOR Nurse Assessment - Vital Signs Vital Sign: Rapid Response Vital Sign Blood Pressure 83/74 Pulse Rate 30 Respiratory Rate 6 Temperature 98.5 F Oxygen Saturation 40 - Vital Signs at end of NURSES' ASSOCIATION COUNSELOR Vital Signs at end of NURSES' ASSOCIATION COUNSELOR: Rapid Response End Vital Sign Blood Pressure 186/93 Pulse Rate 87 Respiratory Rate 12 Temperature 98.5 F O2 Sat by Pulse Oximetry 99 Attending/Attestation - Attestation I have personally seen and examined this patient.: Yes I have fully participated in the care of the patient.: Yes I have reviewed all pertinent clinical information, including history, physical exam and plan: Yes Notes (Text): 01/05/17 17:25 Medical record note made by the resident after discussion with my direction and input after the patient was personally seen and examined by me. I have reviewed the chart and agree that the record accurately reflects by personal performance of the history, physical exam, data review, and medical decision-making, in the course for the patient. I have also personally directed the plan of care.
--- NOTE | 2016-12-07 13:14 | RAD ---
HISTORY: RAPID RESPONSE COMPARISON: No prior. FINDINGS: LUNGS: No active pulmonary disease. PLEURA: No significant pleural effusion identified, no pneumothorax apparent. CARDIOVASCULAR: Mild cardiomegaly and mild vascular congestion OSSEOUS STRUCTURES: No significant abnormalities. VISUALIZED UPPER ABDOMEN: Normal. OTHER FINDINGS: None. IMPRESSION: Mild cardiomegaly and mild vascular congestion
--- NOTE | 2016-12-07 14:10 | CARD ---
APPROVED REPORT EKG Measurement Heart [id number] <Conclusion> Normal sinus rhythm Low voltage QRS Cannot rule out Inferior infarct, age undetermined Possible Anterolateral infarct, age undetermined Abnormal ECG
== END 2016-12-11 12:49 | disposition short-term general hospital (02) ==
LOC: ENDO 10:10
PROVIDERS: ATTEND Internal Medicine
DX: K22.2 Esophageal obstruction (principal); K20.8 Other esophagitis; K29.60 Other gastritis without bleeding; K31.89 Other diseases of stomach and duodenum; I95.81 Postprocedural hypotension; R00.1 Bradycardia, unspecified; D50.9 Iron deficiency anemia, unspecified; I10 Essential (primary) hypertension; E11.9 Type 2 diabetes mellitus without complications; I11.0 Hypertensive heart disease with heart failure; I50.9 Heart failure, unspecified; Z79.4 Long term (current) use of insulin
CPT/HCPCS: 43239; 71010; 82948; 88305; 88312; 88342; 93005; J2704; J3010; J7040

== ENCOUNTER 2016-12-07 12:43 | Emergency (ER) | payer MEDICARE ==
[2016-12-07 12:45] VITALS: BMI 44.6
[2016-12-07 13:01] VITALS: TEMP 98.4
--- NOTE | 2016-12-07 13:04 | ED PDOC ---
Arrival/HPI - General Chief Complaint: Medical Clearance Time Seen by Provider: 12/07/16 12:51 Historian: Patient - History of Present Illness Narrative History of Present Illness (Text): 12/07/16 13:01 A 76 year old obese female, whose past medical history includes CAD, CHF, cellulitis of breast, breast mass, Diabetes Mellitus, hypertension, and folliculitis, presents to the emergency department immediately after an endoscopy and prior to a colonoscopy. After the endoscopy, the patient's heart rate dropped and her blood pressure began to rise significantly to a reported 200s/100s. She was noted to become hypoxic with significant secretions requiring suction. The patient was transferred to the emergency department right away. The patient is awake and alert x3 and does not understand why she woke up in the emergency department. She states she is completely asymptomatic at this time. She denies any chest pain or dyspnea. No blood pressure medication was given to patient during this episode. Time/Duration: Prior to Arrival Symptom Onset: Sudden Symptom Course: Other Activities at Onset: Significant (after endoscopy) Context: Other (hosptial ) Past Medical History - Provider Review Nursing Documentation Reviewed: Yes - Infectious Disease Hx of Infectious Diseases: None - Cardiac Hx Pacemaker: No - Pulmonary Hx Respiratory Disorders: Yes (PE) Hx Sleep Apnea: Yes - Neurological Hx Paralysis: No - HEENT Hx HEENT Disorder: Yes Hx Cataracts: Yes Hx Glaucoma: Yes - Renal Hx Renal Disorder: No - Endocrine/Metabolic Hx Diabetes Mellitus Type 2: Yes Hx Hypothyroidism: Yes - Hematological/Oncological Hx Blood Transfusions: No Hx Blood Transfusion Reaction: No - Integumentary Hx Dermatological Disorder: Yes (BILATERAL LEG EDEMA RIGHT LEG +3 AND LEFT LEG + 2.) - Musculoskeletal/Rheumatological Hx Musculoskeletal Disorders: Yes - Gastrointestinal Hx Gastrointestinal Disorders: Yes - Genitourinary/Gynecological Hx Genitourinary Disorders: Yes (BILATERAL BREAST REDUCTION,TOTAL HYSTERECTOMY) - Psychiatric Hx Emotional Abuse: No Hx Physical Abuse: No Hx Substance Use: No - Surgical History Hx Cardiac Catheterization: Yes Hx Coronary Stent: Yes (6) Hx Hysterectomy: Yes (TOTAL) Other/Comment: CARD CATH - Anesthesia Hx Anesthesia: Yes Hx Anesthesia Reactions: No Hx Malignant Hyperthermia: No - Suicidal Assessment Feels Threatened In Home Enviroment: No Family/Social History - Physician Review Nursing Documentation Reviewed: Yes Family/Social History: No Known Family HX Smoking Status: Never Smoked Hx Alcohol Use: No Hx Substance Use: No Allergies/Home Meds Allergies/Adverse Reactions: Allergies shellfish derived Allergy (Severe, Verified 12/04/16 13:56) ANAPHYLAXIS Home Medications: Home Meds Medication Instructions Recorded Confirmed Acetaminophen [8 Hour] 650 mg PO Q6H PRN 05/26/16 12/07/16 Dorzolamide HCl/Timolol Maleat 1 drop BOTHEYES BID 05/26/16 12/07/16 [Dorzolamide-Timolol Eye Drops] Aspirin [Adult Low Dose Aspirin EC] 81 mg PO QAM 12/04/16 12/07/16 Furosemide [Lasix] 40 mg PO QAM 12/04/16 12/07/16 Gabapentin 300 mg PO HS 12/04/16 12/07/16 Insulin Aspart [Novolog FLEXPEN] 18 units SC ACTID 12/04/16 12/07/16 Insulin Glargine,Hum.rec.anlog 50 unit SQ HS 12/04/16 12/07/16 [Toujeo Solostar] Latanoprost 0.005% Opht [Xalatan 0 ml BOTHEYES HS 12/04/16 12/07/16 Opht] Polyethylene Glycol 3350 [Miralax] 17 gm PO DAILY 12/04/16 12/07/16 Review of Systems - Physician Review All systems were reviewed & negative as marked: Yes - Review of Systems Constitutional: absent: Fevers Respiratory: absent: SOB Cardiovascular: absent: Chest Pain Gastrointestinal: absent: Abdominal Pain Physical Exam - Physical Exam Narrative Physical Exam (Text): Constitutional: No acute distress. Head: Normocephalic. Atraumatic. Eyes: PERRL. ENT: Moist mucous membranes. Neck: Supple. Cardiovascular: Regular rate. Chest: No tenderness. Respiratory: Mild bilateral crackles in the bases. GI: Soft. Nontender. Nondistended. Back: No CVA tenderness. Musculoskeletal: No tenderness. Bilateral pitting edema. Skin: No rash. Neurologic: Alert, no focal deficit. Vital Signs Reviewed: Yes Vital Signs Temp Pulse Resp BP Pulse Ox 12/07/16 12:53 98.4 F 79 19 177/88 H 100 Temperature: Afebrile Blood Pressure: Hypertensive Pulse: Regular Respiratory Rate: Normal Appearance: Positive for: Well-Appearing, Non-Toxic, Comfortable Pain Distress: None Mental Status: Positive for: Alert and Oriented X 3 Medical Decision Making ED Course and Treatment: 12/07/16 13:04 Plan: -- EKG -- Labs -- Reassess and disposition Prior Visits: Notes and results from previous visits were reviewed. The patient was last seen in the emergency department on 07/31/16 for cellulitis. The patient was hospitalized. Progress Notes: 12/07/16 13:59 EKG: Ordered, reviewed, and independently interpreted the EKG. Rate : 83 BPM Rhythm : NSR Interpretation : No ST-segment elevations or depressions, no T-wave inversions, normal intervals. 12/07/16 14:39 Patient has remained symptom free in the ED for hours. Blood pressure normalized without medication. Patient wishes to go home. Discussed case with Dr. Fox who states patient can follow up with him in office tomorrow. - Lab Interpretations Lab Results: 12/07/16 13:45 12/07/16 13:45 Lab Results 12/07/16 13:45: Sodium 142, Potassium 3.8, Chloride 102, Carbon Dioxide 30, Anion Gap 14, BUN 11, Creatinine 0.9, Est GFR ( Amer) > 60, Est GFR (Non- Af Amer) > 60, Random Glucose 129 H, Calcium 9.2, Total Bilirubin 0.6, AST 30, ALT 41, Alkaline Phosphatase 108, Total Creatine Kinase 73, Troponin I < 0.01 D , NT-Pro-B Natriuret Pep 2010 H, Total Protein 7.1, Albumin 3.8, Globulin 3.3, Albumin/Globulin Ratio 1.2 12/07/16 13:45: PT 11.7, INR 1.08, APTT 21.5 L 12/07/16 13:45: WBC 6.4, RBC 4.54, Hgb 12.1, Hct 37.2, MCV 81.9, MCH 26.7, MCHC 32.5, RDW 17.7 H, Plt Count 216, MPV 10.4, Gran % 74.1 H, Lymph % (Auto) 15.3 L , [place] % (Auto) 8.6 H, Eos % (Auto) 1.7, Baso % (Auto) 0.3, Gran # 4.76, Lymph # 1.0 L, [place] # 0.6, Eos # 0.1, Baso # 0.02 - Scribe Statement The provider has reviewed the documentation as recorded by the Scribe Ngoc [place]ieta Provider Scribe Attestation: All medical record entries made by the Scribe were at my direction and personally dictated by me. I have reviewed the chart and agree that the record accurately reflects my personal performance of the history, physical exam, medical decision making, and the department course for this patient. I have also personally directed, reviewed, and agree with the discharge instructions and disposition. Disposition/Present on Arrival - Present on Arrival Any Indicators Present on Arrival: No History of DVT/PE: No History of Uncontrolled Diabetes: No Urinary Catheter: No History of Decub. Ulcer: No History Surgical Site Infection Following: None - Disposition Have Diagnosis and Disposition been Completed?: Yes Diagnosis: Hypertensive crisis, unspecified Disposition: HOME/ ROUTINE Disposition Time: 14:33 Patient Plan: Discharge Patient Problems: Current Active Problems Problem Status Onset Hypertensive crisis, unspecified Acute Condition: STABLE Discharge Instructions (ExitCare): Pulmonary Edema (ED) Referrals: Dilip Fox MD [Staff Provider] - Follow up with primary Forms: [employer] (Chinese)
[2016-12-07 13:58] LABS: BASO # 0.02 K/mm3 (0.0-2.0); BASO % 0.3 % (0.0-3.0); EOS # 0.1 (0.0-0.7); EOS % 1.7 % (1.5-5.0); GRAN # 4.76 (1.4-6.5); GRAN % 74.1 % (50.0-68.0); HEMATOCRIT 37.2 % (36.0-48.0); LYMPH % 15.3 % (22.0-35.0); MEAN CELL VOLUME 81.9 fl (80.0-105.0); MEAN CORPUSCULAR HEMOGLOBIN 26.7 pg (25.0-35.0); MEAN CORPUSCULAR HGB CONC 32.5 g/dl (31.0-37.0); MEAN PLATELET VOLUME 10.4 fl (7.0-11.0); MONO # 0.6 (0.1-0.6); MONO % 8.6 % (1.0-6.0); RED CELL DISTRIBUTION WIDTH 17.7 % (11.5-14.5); WHITE BLOOD COUNT 6.4 10^3/ul (4.5-11.0)
[2016-12-07 14:07] LABS: INR 1.08 (0.93-1.08); PARTIAL THROMBOPLASTIN TIME 21.5 Seconds (23.7-30.8)
[2016-12-07 14:08] LABS: ALB/GLOB RATIO 1.2 (1.1-1.8); ALKALINE PHOSPHATASE 108 U/L (38-126); ALT/SGPT 41 U/L (7-56); AST/SGOT 30 U/L (14-36); BILIRUBIN,TOTAL 0.6 mg/dL (0.2-1.3); BLOOD UREA NITROGEN 11 mg/dL (7-21); CALCIUM 9.2 mg/dL (8.4-10.5); CARBON DIOXIDE 30 mmol/L (21-33); CHLORIDE 102 mmol/L (98-107); GFR AFRICAN-AMERICAN > 60; GLUCOSE,RANDOM 129 mg/dL (70-110); POTASSIUM 3.8 mmol/L (3.6-5.0); SODIUM 142 mmol/L (132-148); TOTAL PROTEIN 7.1 g/dL (5.8-8.3)
[2016-12-07 14:21] LABS: TROPONIN I < 0.01 ng/mL
[2016-12-07 14:37] VITALS: BP 145/69; PULSE 75; RESP 16; O2SAT 99
--- NOTE | 2016-12-08 08:57 | CARD ---
APPROVED REPORT EKG Measurement Heart [id number] [place] 180P81 [id number] <Conclusion> Normal sinus rhythm Cannot rule out Inferior infarct, age undetermined Possible Old Anterolateral infarct.
== END 2016-12-07 15:00 | disposition home or self-care (01) ==
LOC: ED 12:43
DX: I16.9 Hypertensive crisis, unspecified (principal)

== ENCOUNTER 2017-01-16 09:30 | Day surgery (SDC) | payer MEDICARE ==
[2017-01-09 10:16] VITALS: BMI 40.6
[2017-01-16] MEDS ORDERED: Propofol 10 mg/ml Inj (20 ML) ONE (10:34)
[2017-01-16 11:13] VITALS: TEMP 98
[2017-01-16] MEDS ORDERED: Sodium Chloride 0.9% 1,000 ML IV SCH (11:15)
[2017-01-16 11:20] VITALS: O2SAT 99
[2017-01-16 12:21] VITALS: BP 154/78; PULSE 79; RESP 18
== END 2017-01-16 12:39 | disposition home or self-care (01) ==
LOC: ENDO 09:30
PROVIDERS: ATTEND Internal Medicine
DX: D12.2 Benign neoplasm of ascending colon (principal); K57.30 Diverticulosis of large intestine without perforation or abscess without bleeding; K64.8 Other hemorrhoids

== ENCOUNTER 2017-04-17 06:06 | Day surgery (SDC) | payer MEDICARE ==
[2017-04-12 09:54] VITALS: BMI 42.1
[2017-04-17 06:43] VITALS: RESP 18
[2017-04-17 06:49] LABS: BASO # 0.02 K/mm3 (0.0-2.0); BASO % 0.4 % (0.0-3.0); EOS # 0.2 (0.0-0.7); EOS % 3.1 % (1.5-5.0); GRAN # 2.87 (1.4-6.5); GRAN % 59.6 % (50.0-68.0); HEMOGLOBIN 11.4 g/dL (12.0-16.0); LYMPH # 1.3 (1.2-3.4); LYMPH % 27.8 % (22.0-35.0); MEAN CORPUSCULAR HEMOGLOBIN 26.8 pg (25.0-35.0); MEAN CORPUSCULAR HGB CONC 31.2 g/dl (31.0-37.0); MEAN PLATELET VOLUME 10.5 fl (7.0-11.0); MONO # 0.4 (0.1-0.6); MONO % 9.1 % (1.0-6.0); RBC 4.26 10^6/uL (3.5-6.1); RED CELL DISTRIBUTION WIDTH 15.5 % (11.5-14.5); WHITE BLOOD COUNT 4.8 10^3/ul (4.5-11.0)
[2017-04-17] MEDS ORDERED: Lidocaine 2% Inj (20ml) ONE (06:56)
[2017-04-17 06:57] LABS: INR 1.28 (0.93-1.08); PARTIAL THROMBOPLASTIN TIME 30.6 Seconds (25.1-36.5); PROTHROMBIN TIME 14.8 SECONDS (9.4-12.5)
[2017-04-17] MEDS ORDERED: Famotidine 20mg/50ml 20 MG/50 ML BAG IVPB ONE (06:57)
[2017-04-17] MEDS ORDERED: DiphenhydrAMINE 50 mg/ml Inj ONE (06:57)
[2017-04-17 06:59] LABS: MEAN CELL VOLUME 85.7 fl (80.0-105.0)
[2017-04-17 07:00] LABS: BLOOD UREA NITROGEN 14 mg/dL (7-21); CALCIUM 9.5 mg/dL (8.4-10.5); GFR AFRICAN-AMERICAN > 60; GFR NON-AFRICAN AMERICAN 54
[2017-04-17] MEDS ORDERED: Midazolam 2 MG/2 ML VIAL ONE ×2 (08:05→08:22)
[2017-04-17] MEDS ORDERED: Iohexol 350mgl/ml 50 ML ONE (08:13)
[2017-04-17] MEDS ORDERED: Sodium Chloride 0.9% 1,000 ML IV SCH (09:00)
[2017-04-17 09:13] VITALS: TEMP 97.9
[2017-04-17 11:21] VITALS: O2SAT 98
[2017-04-17 12:42] VITALS: BP 164/89
[2017-04-17 14:20] VITALS: PULSE 75
--- NOTE | 2017-04-17 15:32 | CARDCATH ---
PROCEDURE DATE: 04/17/2017 HISTORY: The patient is a 77-year-old woman who presents with exertional shortness of breath. The patient's stress test was abnormal with marked decrease in perfusion in the anterior wall. PAST MEDICAL HISTORY: Includes history of morbid obesity, multivessel CAD in the past, status post MIDCAB with LAD with a LANDAVERDE to the LAD at [facility]. She presents for cardiac catheterization. PROCEDURE: Left heart catheterization with coronary artery and left ventriculogram with LANDAVERDE angiogram. The right femoral artery was cannulated with a 6-Korean sheath. There were no complications. I performed moderate sedation which included the presence of an independent trained observer that assisted in monitoring the patient's level of consciousness and physiologic status. After administration of Versed and fentanyl, my intra service time was 30 minutes. The findings on catheterization revealed a left ventricle that was diffusely hypokinetic with an estimated ejection fraction of 25%. Her coronary anatomy revealed 70% distal left main stenoses. The LAD revealed diffuse disease with 60-70% stenosis in the proximal portion with diffuse atherosclerosis throughout its course. The diagonal vessels revealed diffuse disease. The circumflex artery revealed a 70-80% stenosis in the proximal portion and was occluded in the midportion . The circumflex anatomy was unchanged from the previous. The RCA was a dominant vessel and found to have a patent ostial stent. The rest of the RCA revealed diffuse atherosclerosis with a 50-60% stenoses in the proximal portion as well as the midportion. The distal portion of the RCA was occluded which is chronic. The LANDAVERDE to the LAD was found to be occluded in its midportion. Angio-Seal was used to close the femoral artery site. The patient tolerated the procedure well. In summary, the procedure revealed a distal of 70% left main stenoses. Chronically occluded mid circumflex artery. Patent stent in the proximal RCA. Markedly abnormal LV function with an EF of 25%. An occluded LANDAVERDE. Given these findings, it was discussed with the patient whether we should continue with medical therapy or we should consider high-risk angioplasty of the unprotected left main stenoses as well as the proximal LAD. Gigi Baez MD [facility] # [id number]
--- NOTE | 2017-04-17 17:32 | CARD ---
APPROVED REPORT EKG Measurement Heart [id number] [place] [id number] [id number] <Conclusion> Normal sinus rhythm Inferior infarct, age undetermined Cannot rule out Anterior infarct, age undetermined T wave abnormality, consider lateral ischemia Abnormal ECG
== END 2017-04-17 14:45 | disposition home or self-care (01) ==
LOC: CATH 06:06
PROVIDERS: ATTEND Internal Medicine Cardiovascular Disease
DX: I25.10 Atherosclerotic heart disease of native coronary artery without angina pectoris (principal); T82.857A Stenosis of other cardiac prosthetic devices, implants and grafts, initial encounter; I25.82 Chronic total occlusion of coronary artery; Y83.2 Surgical operation with anastomosis, bypass or graft as the cause of abnormal reaction of the patient, or of later complication, without mention of misadventure at the time of the procedure; E66.01 Morbid (severe) obesity due to excess calories; Z68.41 Body mass index [BMI] 40.0-44.9, adult
CPT/HCPCS: 36415; 80048; 85025; 85610; 85730; 86850; 86900; 93005; 93459; 99152; C1760; C1769; C2629; J1200; J1720; J2250; J3010; J7040 ×2; Q9967

== ENCOUNTER 2017-04-28 09:35 | Observation (INO) | payer MEDICARE, OTHER ==
--- NOTE | 2017-04-28 11:07 | ED PDOC ---
Arrival/HPI - General Chief Complaint: Female Genitourinary Time Seen by Provider: 04/28/17 10:57 Historian: Patient - History of Present Illness Narrative History of Present Illness (Text): 04/28/17 11:04 A 77 year old female, whose past medical history includes CAD with artery bypass graft, CHF, diabetes, hypertension, 6 prior stents prior to CABG, presents to the emergency department for GI bleed since 9pm last night. The patient reports the pain as mild abdominal cramping, when she went to the bathroom she noticed bright red blood with loose stool, she notes she did have relief with bowel movement. When she woke up this morning she noticed dark stool and dark underpants. She notes that she has had worsening shortness of breath on exertion for the past month, she also has worsening fatigue. Within the past week the patient has noticed increased bilateral leg swelling. She denies any fever, chills, sweats, focal chest pain, palpitations, nausea, vomiting, diarrhea, appetite changes, urinary changes, no loc, or any other complaints at this time. The patient denies any antibiotic usage within the last month. + weakness, worse with exertion; 1 week ago the patient received a cardiac catheterization by Dr. Baez for abnormalities in stress test. 70% occlusion in one of her cardiac arterial vessels. Patient is status post triple vessel bypass from [facility] in [place], [place] (2016?) The patient received a colonoscopy in January [address] Castro who removed a few polyps that were benign. 04/28/17 13:33 Time/Duration: Other (9pm last night ) Symptom Onset: Sudden Symptom Course: Unchanged Quality: Cramping Severity Level: Mild Activities at Onset: Light Context: Home Past Medical History - Provider Review Nursing Documentation Reviewed: Yes - Travel History Have you recently traveled outside [place] w/in the past 3 mons?: No - Past History Past History: No Previous - Infectious Disease Hx of Infectious Diseases: None - Cardiac Hx Hypertension: Yes Hx Pacemaker: No - Pulmonary Hx Respiratory Disorders: Yes (PE) Hx Sleep Apnea: Yes - Neurological Hx Paralysis: No - HEENT Hx HEENT Disorder: Yes Hx Cataracts: Yes Hx Glaucoma: Yes - Renal Hx Renal Disorder: No - Endocrine/Metabolic Hx Diabetes Mellitus Type 2: Yes Hx Hypothyroidism: Yes - Hematological/Oncological Hx Blood Transfusions: No Hx Blood Transfusion Reaction: No - Integumentary Hx Dermatological Disorder: Yes (BILATERAL LEG EDEMA RIGHT LEG +3 AND LEFT LEG + 2.) - Musculoskeletal/Rheumatological Hx Musculoskeletal Disorders: Yes - Gastrointestinal Hx Gastrointestinal Disorders: Yes - Genitourinary/Gynecological Hx Genitourinary Disorders: Yes (BILATERAL BREAST REDUCTION,TOTAL HYSTERECTOMY) - Psychiatric Hx Emotional Abuse: No Hx Physical Abuse: No Hx Substance Use: No - Surgical History Hx Coronary Stent: Yes (6 stents 4 yrs ago) Hx Hysterectomy: Yes Hx Open Heart Surgery: Yes (triple bypass 2016) Other/Comment: breast reduction in 1969 - Anesthesia Hx Anesthesia: Yes Hx Anesthesia Reactions: No Hx Malignant Hyperthermia: No - Suicidal Assessment Feels Threatened In Home Enviroment: No Family/Social History - Physician Review Nursing Documentation Reviewed: Yes Family/Social History: No Known Family HX Smoking Status: Never Smoked Hx Alcohol Use: No Hx Substance Use: No Hx Substance Use Treatment: No Allergies/Home Meds Allergies/Adverse Reactions: Allergies shellfish derived Allergy (Severe, Verified 04/28/17 14:18) ANAPHYLAXIS Home Medications: Home Meds Medication Instructions Recorded Confirmed Aspirin [Ecotrin] 81 mg PO DAILY 01/09/17 04/28/17 Atorvastatin [Lipitor] 20 mg PO DAILY 01/09/17 04/28/17 Ferrous Sulfate [Feosol] 324 mg PO TID 01/09/17 04/28/17 Furosemide [Lasix] 40 mg PO DAILY 01/09/17 04/28/17 Gabapentin [Neurontin] 300 mg PO DAILY 01/09/17 04/28/17 Insulin Aspart [Novolog Flexpen] 18 unit SC AC 01/09/17 04/28/17 Latanoprost [Xalatan] 1 drop OU HS 01/09/17 04/28/17 Levothyroxine [Synthroid] 88 mcg PO DAILY 01/09/17 04/28/17 Melatonin [Melatin] 5 mg PO HS 01/09/17 04/28/17 Multivitamin [Multivitamins] 1 each PO DAILY 01/09/17 04/28/17 Polyethylene Glycol 3350 [Miralax] 17 gm PO DAILY 01/09/17 04/28/17 Insulin Glargine,Hum.rec.anlog 50 unit SQ HS 04/12/17 04/28/17 [Whitney Mayorga] Pantoprazole Sodium [Protonix] 40 mg PO DAILY 04/12/17 04/28/17 Dorzolamide 2%/Timolol 0.5% 1 drop OU BID 04/16/17 04/28/17 [Cosopt 2%-0.5% Opht] Metoprolol Succinate [Toprol XL] 25 mg PO DAILY 04/28/17 04/28/17 Review of Systems - Physician Review All systems were reviewed & negative as marked: Yes - Review of Systems Constitutional: absent: Fevers Eyes: Normal ENT: Normal Respiratory: SOB Cardiovascular: absent: Chest Pain Gastrointestinal: Abdominal Pain, Stool Changes, Hematochezia. absent: Diarrhea , Nausea, Vomiting, Appetite Changes Genitourinary Female: Normal Musculoskeletal: Normal Skin: Normal Neurological: Other (weakness) Endocrine: absent: Diaphoresis Hemo/Lymphatic: Normal Psychiatric: Normal Physical Exam Vital Signs Reviewed: Yes Vital Signs Temp Pulse Resp BP Pulse Ox 04/28/17 14:24 67 20 143/63 99 04/28/17 12:27 68 17 161/78 H 99 04/28/17 11:49 98.2 F 87 16 110/69 99 04/28/17 09:57 98.2 F 79 19 164/87 H 95 04/28/17 09:36 98.2 F 79 19 164/87 H 95 Temperature: Afebrile Blood Pressure: Hypertensive Pulse: Regular Respiratory Rate: Normal Appearance: Positive for: Well-Appearing, Non-Toxic, Comfortable Pain Distress: None Mental Status: Positive for: Alert and Oriented X 3 - Systems Exam Head: Present: Atraumatic, Normocephalic Pupils: Present: PERRL Extroacular Muscles: Present: EOMI Conjunctiva: Present: Normal Ears: Present: Normal, NORMAL TM, Erythema, Normal Canal, TM Bulging, Fluid, TM Perf, Other Mouth: Present: Moist Mucous Membranes Neck: Present: Normal Range of Motion Respiratory/Chest: Present: Clear to Auscultation, Good Air Exchange. No: Respiratory Distress, Accessory Muscle Use Cardiovascular: Present: Regular Rate and Rhythm, Normal S1, S2. No: Murmurs Abdomen: Present: Normal Bowel Sounds. No: Tenderness, Distention, Peritoneal Signs Rectal: Present: Other (Guaiac positive) Back: Present: Normal Inspection Upper Extremity: Present: Normal Inspection. No: Cyanosis, Edema Lower Extremity: Present: Normal Inspection. No: Edema Neurological: Present: GCS=15, CN II-XII Intact, Speech Normal Skin: Present: Warm, Dry, Normal Color. No: Rashes Psychiatric: Present: Alert, Oriented x 3, Normal Insight, Normal Concentration Medical Decision Making ED Course and Treatment: 04/28/17 11:00 Impression: A 77 year old female with GI bleed I have considered all differential diagnoses regarding patients chief medical complaints/clinical findings which include but are not limited to: GI BLEED Plan: GI BLEED -- EKG -- Labs -- Chest X-ray -- Urinalysis -- Reassess and disposition Progress Notes: 04/28/17 13:[address] Mendez the hospitalist on-call, agrees to admission with Dr. Michaud/Gloria as gi consults, and agrees for consultation with latex caster Dr. Baez. 04/28/17 13:39 pt is currently comfortable; NAD pt is made aware of her medical results agrees with admission Re-evaluation Time: 13:34 Reassessment Condition: Improving,but remains with symptoms - Critical Care Critical Care Minutes: 45 minutes Critical Care Time: Excluding Proc Time Narrative Critical Care (Text): 04/28/17 13:34 critical care time: 45min, excluding procedure time, excluding time teaching residents/students/mid-level providers; including initial eval/diagnosis, diagnostic interpretation, re-eval, consultations, final disposition - Lab Interpretations Lab Results: 04/28/17 10:50 04/28/17 12:00 Lab Results 04/28/17 12:00: Blood Type O POSITIVE, Antibody Screen Negative, BBK History Checked Patient has bt 04/28/17 12:00: Sodium 144, Potassium 3.6, Chloride 105, Carbon Dioxide 30, Anion Gap 13, BUN 12, Creatinine 0.9, Est GFR ( Amer) > 60, Est GFR (Non- Af Amer) > 60, Random Glucose 109, Calcium 9.3, Magnesium 1.9, Total Bilirubin 0.5, AST 23, ALT 32, Alkaline Phosphatase 79, Lactate Dehydrogenase 456, Total Creatine Kinase 51, Troponin I < 0.01, NT-Pro-B Natriuret Pep 2240 H, Total Protein 6.7, Albumin 3.5, Globulin 3.2, Albumin/Globulin Ratio 1.1 04/28/17 10:50: Urine Color Yellow, Urine Appearance Clear, Urine pH 6.5, Ur Specific [place] 1.010, Urine Protein Negative, Urine Glucose (UA) Negative, Urine Ketones Negative, Urine Blood Small H, Urine Nitrate Negative, Urine Bilirubin Negative, Urine Urobilinogen 0.2, Ur Leukocyte Esterase Negative, Urine RBC 0 - 2, Urine WBC Negative, Ur Epithelial Cells 3 - 4, Urine Bacteria Neg 04/28/17 10:50: PT 13.9 H, INR 1.20 H, APTT 29.1 04/28/17 10:50: WBC 6.6 D, RBC 4.11, Hgb 10.8 L, Hct 35.6 L, MCV 86.6, MCH 26.3 , MCHC 30.3 L, RDW 15.9 H, Plt Count 256, MPV 10.9, Gran % 67.5, Lymph % (Auto) 22.0, [place] % (Auto) 8.2 H, Eos % (Auto) 2.1, Baso % (Auto) 0.2, Gran # 4.46, Lymph # (Auto) 1.5, [place] # (Auto) 0.5, Eos # (Auto) 0.1, Baso # (Auto) 0.01 I have reviewed the lab results: Yes Interpretation: Abnormal lab values (mild anemia, elevated BNP) - RAD Interpretation Narrative RAD Interpretations (Text): 04/28/17 15:11 HISTORY: weakness COMPARISON: 12/07/2016 FINDINGS: LUNGS: No active pulmonary disease. PLEURA: No significant pleural effusion identified, no pneumothorax apparent. CARDIOVASCULAR: Moderate cardiomegaly OSSEOUS STRUCTURES: No significant abnormalities. VISUALIZED UPPER ABDOMEN: Normal. OTHER FINDINGS: None. IMPRESSION: No active disease. Radiology Orders: 04/28/17 10:59 CHEST PORTABLE [RAD] Stat Executive Vice President Of Sales: Radiologist - EKG Interpretation EKG Interpretation (Text): 04/28/17 13:36 Sinus rhythm at 70 bpm, LAD, + ECTOPY, inverted T in leads I, L, diffuse low voltage inf leads; qs in leads III/F, ABNL EKG; unchanged compare with old ekg Interpreted by ED Physician: Yes Type: 12 lead EKG Comparison: Similar to previous EKG - Medication Orders Current Medication Orders: Atorvastatin Calcium (Lipitor) 20 mg PO DAILY ISIDORO Dorzolamide/Timolol (Cosopt 2%-0.5% Opht) 1 drop OU BID ISIDORO Furosemide (Lasix) 40 mg PO DAILY ISIDORO Gabapentin (Neurontin) 300 mg PO DAILY ISIDORO PRN Reason: Protocol Pantoprazole Sodium (Protonix 40mg Ivpb) 40 mg in 100 mls @ 200 mls/hr IVPB 0600 ISIDORO Sodium Chloride (Sodium Chloride 0.9%) 1,000 mls @ 40 mls/hr IV .Q24H ISIDORO Insulin Human Regular (Humulin R Med) 0 units SC ACHS ISIDORO PRN Reason: Protocol Latanoprost (Xalatan Opht) 0 ml OU HS ISIDORO Levothyroxine Sodium (Synthroid) 88 mcg PO 0600 ISIDORO Metoprolol Succinate (Toprol Xl) 25 mg PO DAILY ISIDORO Non-Formulary Medication (Melatonin [Melatin]) 5 mg PO HS ISIDORO - Scribe Statement The provider has reviewed the documentation as recorded by the Alvaroibpaola Mendieta Provider Scribe Attestation: All medical record entries made by the Scribe were at my direction and personally dictated by me. I have reviewed the chart and agree that the record accurately reflects my personal performance of the history, physical exam, medical decision making, and the department course for this patient. I have also personally directed, reviewed, and agree with the discharge instructions and disposition. Disposition/Present on Arrival - Present on Arrival Any Indicators Present on Arrival: No History of DVT/PE: No History of Uncontrolled Diabetes: No Urinary Catheter: No History of Decub. Ulcer: No History Surgical Site Infection Following: None - Disposition Have Diagnosis and Disposition been Completed?: Yes Diagnosis: GI bleed, Weakness, CHF (congestive heart failure) Disposition: HOSPITALIZED Disposition Time: 13:39 Patient Plan: Admission Patient Problems: Current Active Problems Problem Status Onset Congestive heart failure (CHF) Acute GI bleed Acute Weakness Acute Condition: STABLE
[2017-04-28 11:38] LABS: PH,URINE 6.5 (4.7-8.0); URINE BILIRUBIN NEGATIVE (NEGATIVE); URINE BLOOD SMALL (NEGATIVE); URINE GLUCOSE (UA) NEGATIVE (NEGATIVE); URINE LEUKOCYTE ESTERASE NEGATIVE Leu/uL (NEGATIVE); URINE NITRATE NEGATIVE (NEGATIVE); URINE PROTEIN NEGATIVE mg/dL (<30 mg/dL); URINE UROBILINOGEN 0.2 E.U./dL (<1 E.U./dL)
[2017-04-28 11:39] LABS: URINE APPEARANCE CLEAR (CLEAR); URINE COLOR YELLOW (YELLOW)
[2017-04-28 11:42] LABS: BASO # 0.01 K/mm3 (0.0-2.0); BASO % 0.2 % (0.0-3.0); EOS # 0.1 (0.0-0.7); EOS % 2.1 % (1.5-5.0); GRAN # 4.46 (1.4-6.5); GRAN % 67.5 % (50.0-68.0); HEMOGLOBIN 10.8 g/dL (12.0-16.0); LYMPH # 1.5 (1.2-3.4); MEAN CELL VOLUME 86.6 fl (80.0-105.0); MEAN CORPUSCULAR HEMOGLOBIN 26.3 pg (25.0-35.0); MEAN CORPUSCULAR HGB CONC 30.3 g/dl (31.0-37.0); MEAN PLATELET VOLUME 10.9 fl (7.0-11.0); MONO # 0.5 (0.1-0.6); MONO % 8.2 % (1.0-6.0); RBC 4.11 10^6/uL (3.5-6.1); RED CELL DISTRIBUTION WIDTH 15.9 % (11.5-14.5); WHITE BLOOD COUNT 6.6 10^3/ul (4.5-11.0)
[2017-04-28 12:19] LABS: URINE BACTERIA NEG (NEG); URINE RBC 0 - 2 /hpf (0-2); URINE WBC NEGATIVE /hpf (0-6)
[2017-04-28 12:21] LABS: INR 1.2 (0.93-1.08); PARTIAL THROMBOPLASTIN TIME 29.1 Seconds (25.1-36.5); PROTHROMBIN TIME 13.9 SECONDS (9.4-12.5)
[2017-04-28 12:23] LABS: ALB/GLOB RATIO 1.1 (1.1-1.8); ALBUMIN 3.5 g/dL (3.0-4.8); ALT/SGPT 32 U/L (7-56); AST/SGOT 23 U/L (14-36); BLOOD UREA NITROGEN 12 mg/dL (7-21); CALCIUM 9.3 mg/dL (8.4-10.5); GFR AFRICAN-AMERICAN > 60; GFR NON-AFRICAN AMERICAN > 60; MAGNESIUM 1.9 mg/dL (1.7-2.2)
[2017-04-28 12:34] LABS: B-TYPE NATRIURETIC PEPTIDE 2240 pg/mL (0-450); TROPONIN I < 0.01 ng/mL
--- NOTE | 2017-04-28 13:54 | RAD ---
HISTORY: weakness COMPARISON: 12/07/2016 FINDINGS: LUNGS: No active pulmonary disease. PLEURA: No significant pleural effusion identified, no pneumothorax apparent. CARDIOVASCULAR: Moderate cardiomegaly OSSEOUS STRUCTURES: No significant abnormalities. VISUALIZED UPPER ABDOMEN: Normal. OTHER FINDINGS: None. IMPRESSION: No active disease.
[2017-04-28] MEDS ORDERED: Sodium Chloride 0.9% 1,000 ML IV SCH (14:45)
[2017-04-28] MEDS ORDERED: Metoprolol Succinate 25 mg XL Tab PO SCH (14:45)
--- NOTE | 2017-04-28 14:46 | CP.PCM.HP ---
<Calixto Avery - Last Filed: 04/28/17 15:07> History of Present Illness - History of Present Illness History of Present Illness: CC: " I saw bright red blood in the toilet" 76 F with PMHx of CAD s/p 6 stent placement prior to CABG 04/2016 (most recent cardiac cath was last week), CHF (EF 25%), pulmonary HTN, HTN, IDDM, GABRIELLE, anemia , diverticulosis, and hemorrhoids presents to the ED following seeing bright red blood in the toilet. Patient states that yesterday at 9:30pm she used the bathroom and noticed the toilet was filled with bright red blood. She subsequently went to the bathroom at 11pm, 3am and 7am and each time saw bright red/ maroon colored blood in the toilet. Patient states that this is the first time this ever happened. Pt is on aspirin but denies prolong use of any kind of NSAIDS. She denies abdominal pain, nausea, vomiting, constipation, or diarrhea. She does admit to being more weak and tired lately. Pt did have a recent colonoscopy 12/2016 - 2 polyps were removed (tubular adenoma), internal hemorrhoids and diverticulosis. Endoscopy on 11/2016 showed LA grad A erosive esophagitis ,erosive gastritis, and gastritis. No other complaints. 12 Point ROS performed and negative other than stated above PMH: CAD s/p stent placement and CABG, CHF, pulmary HTN, HTN, IDDM, GABRIELLE, normocytic anemia Surgical Hx: CABG (04/2016), Hysterectomy, breast reduction Allergies: NKDA Med: refer to [facility] Family Hx: Father passed from prostate cancer. Sister - Hx of breast cancer and another sister from pancreatic ca Social Hx: Retired, Denies alcohol, tobacco, illicit drugs Present on Admission - Present on Admission Any Indicators Present on Admission: No Review of Systems - Review of Systems All systems: reviewed and no additional remarkable complaints except Past Patient History - Infectious Disease Hx of Infectious Diseases: None - Past Social History Smoking Status: Never Smoked - CARDIAC Hx Hypertension: Yes Hx Pacemaker: No - PULMONARY Hx Respiratory Disorders: Yes (PE) Hx Sleep Apnea: Yes - NEUROLOGICAL Hx Paralysis: No - HEENT Hx HEENT Problems: Yes Hx Cataracts: Yes Hx Glaucoma: Yes - RENAL Hx Chronic Kidney Disease: No - ENDOCRINE/METABOLIC Hx Diabetes Mellitus Type 2: Yes Hx Hypothyroidism: Yes - HEMATOLOGICAL/ONCOLOGICAL Hx Blood Transfusions: No Hx Blood Transfusion Reaction: No - INTEGUMENTARY Hx Dermatological Problems: Yes (BILATERAL LEG EDEMA RIGHT LEG +3 AND LEFT LEG + 2.) - MUSCULOSKELETAL/RHEUMATOLOGICAL Hx Musculoskeletal Disorders: Yes - GASTROINTESTINAL Hx Gastrointestinal Disorders: Yes - GENITOURINARY/GYNECOLOGICAL Hx Genitourinary Disorders: Yes (BILATERAL BREAST REDUCTION,TOTAL HYSTERECTOMY) - PSYCHIATRIC Hx Emotional Abuse: No Hx Physical Abuse: No Hx Substance Use: No - SURGICAL HISTORY Hx Coronary Stent: Yes (6 stents 4 yrs ago) Hx Hysterectomy: Yes Hx Open Heart Surgery: Yes (triple bypass 2016) Other/Comment: breast reduction in 1969 - ANESTHESIA Hx Anesthesia: Yes Hx Anesthesia Reactions: No Hx Malignant Hyperthermia: No Meds Allergies/Adverse Reactions: Allergies Allergy/AdvReac Type Severity Reaction Status Date / Time shellfish derived Allergy Severe ANAPHYLAXIS Verified 04/28/17 14:18 Physical Exam - Constitutional Appears: No Acute Distress - Head Exam Head Exam: ATRAUMATIC, NORMOCEPHALIC - Eye Exam Eye Exam: EOMI, PERRL - ENT Exam ENT Exam: Mucous Membranes Moist - Respiratory Exam Respiratory Exam: Clear to Auscultation Bilateral. absent: Wheezes - Cardiovascular Exam Cardiovascular Exam: REGULAR RHYTHM, RRR, +S1, +S2 - GI/Abdominal Exam GI & Abdominal Exam: Normal Bowel Sounds, Soft. absent: Distended, Organomegaly , Tenderness - Rectal Exam Rectal Exam: Bloody Stool Additional comments: Performed by ED physician - revealed "cranberry colored blood" - Extremities Exam Extremities exam: Negative for: calf tenderness, pedal edema - Neurological Exam Neurological exam: Alert, Oriented x3 - Psychiatric Exam Psychiatric exam: Normal Mood - Skin Skin Exam: Dry, Intact, Warm Results - Vital Signs Recent Vital Signs: Last Vital Signs Temp 98.2 F 04/28/17 11:49 Pulse 67 04/28/17 14:24 Resp 20 04/28/17 14:24 BP 143/63 04/28/17 14:24 Pulse Ox 99 04/28/17 14:24 - Labs Result Diagrams: 04/28/17 10:50 04/28/17 12:00 Assessment & Plan - Assessment and Plan (Free Text) Assessment: 76 F with PMHx of CAD s/p 6 stent placement prior to CABG 04/2016 (most recent cardiac cath was last week), CHF (EF 25%), pulmonary HTN, HTN, IDDM, GABRIELLE, anemia , diverticulosis, and hemorrhoids presents to the ED following likely lower GI bleed. 1. GI bleed - NPO - Patient is currently hemodynamically stable - As per ED physician which spoke to Dr Baez - recommended holding aspirin for now - Hb of 10.8 - Trend H/H - Continue Protonix ggt - F/u GI consult - Gentle fluid hydration with NS @ 40 - Daily labs 2. CAD s/p stents and CABG - Aspirin on hold - Cont Lipitor and metoprolol - F/u cardiology consult 3. Hx of heart failure - EF of 25 % on recent cardiac cath - Cont Lasix 40mg daily 4. DM - Hold home insulin - ISS as protocol - ACHS 5. HTN - Home Metoprolol and Lasix 6. Hypothyroid - Cont home Synthroid 7. GI/DVT ppx - Protonix ggt and SCDs Case and plan was reviewed and discussed in detail with Dr Diaz. <Wendy Diaz - Last Filed: 04/28/17 15:23> Results - Vital Signs Recent Vital Signs: Last Vital Signs Temp 98.2 F 04/28/17 11:49 Pulse 67 04/28/17 14:24 Resp 20 04/28/17 14:24 BP 143/63 04/28/17 14:24 Pulse Ox 99 04/28/17 14:24 - Labs Result Diagrams: 04/28/17 10:50 04/28/17 12:00 Attending/Attestation - Attestation I have personally seen and examined this patient.: Yes I have fully participated in the care of the patient.: Yes I have reviewed all pertinent clinical information: Yes Notes (Text): 04/28/17 15:20 76 year old female with past medical history of CAD s/p stents and CABG, systolic CHF, hypertension, diabetes, diverticulosis and hemorrhoids who presents with complaint of rectal bleeding. Will request for GI and cardiology evaluation. Aspirin will be on hold with serial H/H monitoring. Continue with NPO vs clear liquid diet depending on if any GI intervention is planned. Continue with iv protonix. Agree with gentle fluid hydration. Daughter is also at bedside and questions were answered. Wendy Diaz MD Hospitalist.
[2017-04-28] MEDS ORDERED: Insulin Reg-MEDIUM-Coverage SC SCH (16:30)
[2017-04-28 16:49] VITALS: BMI 42.3
[2017-04-28] MEDS ORDERED: Pneumococcal 23-Valent Vaccine IM ONE (16:49)
[2017-04-28] MEDS ORDERED: Influenza Vaccine 60 mcg/0.5 mL SYR (4YR UP) IM ONE (16:49)
[2017-04-28 17:34] LABS: HEMOGLOBIN 10.6 g/dL (12.0-16.0); MEAN CELL VOLUME 86.7 fl (80.0-105.0); MEAN CORPUSCULAR HEMOGLOBIN 26.6 pg (25.0-35.0); MEAN CORPUSCULAR HGB CONC 30.7 g/dl (31.0-37.0); RBC 3.98 10^6/uL (3.5-6.1); RED CELL DISTRIBUTION WIDTH 15.7 % (11.5-14.5); WHITE BLOOD COUNT 7.3 10^3/ul (4.5-11.0)
[2017-04-28] MEDS: Levothyroxine 88 MCG TAB PO SCH (17:42)
[2017-04-28] MEDS: Insulin Reg-LOW-Coverage SC SCH (22:00)
[2017-04-28] MEDS: MELATONIN 5 MG PO SCH (23:31)
[2017-04-28] MEDS: Latanoprost 2.5 ml Opht Soln OU SCH (23:33)
[2017-04-29] MEDS: Levothyroxine 88 MCG TAB PO SCH (05:22)
[2017-04-29] MEDS: Pantoprazole 40mg/100mL NS 40 MG/100 ML BAG IVPB SCH (05:22)
--- NOTE | 2017-04-29 07:47 | CP.PCM.PN ---
<Loren Jane - Last Filed: 04/29/17 12:58> Subjective - Date & Time of Evaluation Date of Evaluation: 04/29/17 Time of Evaluation: 07:00 - Subjective Subjective: PGY2 Medicine Note for Dr. Diaz Patient seen and examined at bedside. She was feeling lightheaded and tired this morning. Patient is a diabetic and was kept NPO overnight and Accucheck this AM was 47. Received 1amp D50. She denied any more bloody BMs but did say that when she went to the bathroom, upon wiping she noted blood in the toilet paper. Patient denied acute complaints of headache, dizziness, chest pain, palpitations, SOB, cough, abd pain, nausea, vomiting, dyrusira, pain/swelling in legs bilaterally. Objective - Vital Signs/Intake and Output Vital Signs (last 24 hours): Temp Pulse Resp BP Pulse Ox 98.2 F 67 17 143/63 99 04/28/17 16:22 04/28/17 16:22 04/28/17 16:22 04/28/17 16:22 04/28/17 14:24 Intake and Output: 04/29/17 04/29/17 06:59 18:59 Intake Total 1120 Output Total 1 Balance 1119 - Medications Medications: Current Medications Atorvastatin Calcium (Lipitor) 20 mg PO DAILY [facility] Last Admin: 04/28/17 17:41 Dose: Not Given Dorzolamide/Timolol (Cosopt 2%-0.5% Opht) 1 drop OU BID [facility] Furosemide (Lasix) 40 mg PO DAILY [facility] Last Admin: 04/28/17 17:41 Dose: Not Given Gabapentin (Neurontin) 300 mg PO DAILY [facility] PRN Reason: Protocol Last Admin: 04/28/17 17:41 Dose: Not Given Pantoprazole Sodium (Protonix 40mg Ivpb) 40 mg in 100 mls @ 200 mls/hr IVPB 0600 [facility] Last Admin: 04/29/17 05:22 Dose: 200 mls/hr Sodium Chloride (Sodium Chloride 0.9%) 1,000 mls @ 40 mls/hr IV .Q24H [facility] Last Admin: 04/28/17 17:42 Dose: 40 mls/hr Insulin Human Regular (Humulin R Low) 0 units SC ACHS [facility] PRN Reason: Protocol Last Admin: 04/28/17 22:00 Dose: Not Given Latanoprost (Xalatan Opht) 0 ml OU HS [facility] Last Admin: 04/28/17 23:33 Dose: 2.5 ml Levothyroxine Sodium (Synthroid) 88 mcg PO 0600 [facility] Last Admin: 04/29/17 05:22 Dose: 88 mcg Metoprolol Succinate (Toprol Xl) 25 mg PO DAILY [facility] Non-Formulary Medication (Melatonin [Melatin]) 5 mg PO HS [facility] Last Admin: 04/28/17 23:31 Dose: Not Given - Labs Labs: 04/28/17 17:15 PT 13.9 SECONDS (9.4-12.5) H 04/28/17 10:50 INR 1.20 (0.93-1.08) H 04/28/17 10:50 APTT 29.1 Seconds (25.1-36.5) 04/28/17 10:50 - Constitutional Appears: Non-toxic, No Acute Distress - Head Exam Head Exam: ATRAUMATIC, NORMAL INSPECTION, NORMOCEPHALIC - Eye Exam Eye Exam: EOMI, Normal appearance, PERRL. absent: Conjunctival injection, Scleral icterus Pupil Exam: NORMAL ACCOMODATION - ENT Exam ENT Exam: Mucous Membranes Moist - Neck Exam Neck Exam: Full ROM, Normal Inspection - Respiratory Exam Respiratory Exam: Clear to Ausculation Bilateral, NORMAL BREATHING PATTERN. absent: Accessory Muscle Use, Rales, Rhonchi, Wheezes, Respiratory Distress - Cardiovascular Exam Cardiovascular Exam: REGULAR RHYTHM, RRR, +S1, +S2. absent: Murmur - GI/Abdominal Exam GI & Abdominal Exam: Soft, Normal Bowel Sounds. absent: Firm, Guarding, Rigid, Tenderness - Extremities Exam Extremities Exam: Normal Inspection. absent: Pedal Edema, Tenderness - Neurological Exam Neurological Exam: Alert, Awake, Oriented x3 - Psychiatric Exam Psychiatric exam: Normal Affect, Normal Mood - Skin Skin Exam: Dry, Intact, Normal Color, Warm Assessment and Plan - Assessment and Plan (Free Text) Assessment: 76 F PMHx of CAD s/p 6 stent placement prior to CABG 04/2016 (most recent cardiac cath was last week), CHF (EF 25%), pulmonary HTN, HTN, IDDM, GABRIELLE, anemia , diverticulosis, and hemorrhoids presents to the ED following likely lower GI bleed. Plan: GI bleed - Full Liquid diet - ASA on hold - H&H stable - Protonix gtt - Colonoscopy 12/2016 - 2 polyps were removed (tubular adenoma), internal hemorrhoids and diverticulosis - Endoscopy on 11/2016 showed LA grad A erosive esophagitis ,erosive gastritis, and gastritis - F/u GI consult CAD s/p stents and CABG - ASA on hold - Cont Lipitor and Toprol xl - F/u cardiology consult Hx of heart failure - EF of 25 % on recent cardiac cath - Cont Lasix 40mg daily DM - Hold home insulin - Full liquid diet - ISS low - ACHS - Neurontin 300mg po qd HTN - Home Metoprolol and Lasix Hypothyroid - Cont home Synthroid GI/DVT ppx - Protonix gtt and SCDs Discussed with Dr. Joe Jane PGY2 <Wendy Diaz - Last Filed: 04/29/17 14:41> Objective - Vital Signs/Intake and Output Vital Signs (last 24 hours): Temp Pulse Resp BP Pulse Ox 98.0 F 78 19 152/86 H 97 04/29/17 06:00 04/29/17 12:00 04/29/17 12:00 04/29/17 12:00 04/29/17 12:00 Intake and Output: 04/29/17 04/29/17 06:59 18:59 Intake Total 1120 Output Total 1 Balance 1119 - Medications Medications: Current Medications Atorvastatin Calcium (Lipitor) 20 mg PO DAILY [facility] Last Admin: 04/29/17 09:56 Dose: 20 mg Carvedilol (Coreg) 6.25 mg PO BID [facility] Dorzolamide/Timolol (Cosopt 2%-0.5% Opht) 1 drop OU BID [facility] Last Admin: 04/29/17 11:58 Dose: 1 drop Furosemide (Lasix) 40 mg PO DAILY [facility] Last Admin: 04/29/17 09:55 Dose: 40 mg Gabapentin (Neurontin) 300 mg PO DAILY [facility] PRN Reason: Protocol Last Admin: 04/29/17 09:55 Dose: 300 mg Pantoprazole Sodium (Protonix 40mg Ivpb) 40 mg in 100 mls @ 200 mls/hr IVPB 0600 [facility] Last Admin: 04/29/17 05:22 Dose: 200 mls/hr Insulin Human Regular (Humulin R Low) 0 units SC ACHS [facility] PRN Reason: Protocol Last Admin: 04/29/17 11:58 Dose: Not Given Latanoprost (Xalatan Opht) 0 ml OU HS [facility] Last Admin: 04/28/17 23:33 Dose: 2.5 ml Levothyroxine Sodium (Synthroid) 88 mcg PO 0600 [facility] Last Admin: 04/29/17 05:22 Dose: 88 mcg Lisinopril (Zestril) 10 mg PO DAILY [facility] Lisinopril (Zestril) 10 mg PO ONCE ONE Stop: 04/29/17 14:46 Non-Formulary Medication (Melatonin [Melatin]) 5 mg PO HS [facility] Last Admin: 04/28/17 23:31 Dose: Not Given Spironolactone (Aldactone) 25 mg PO BID [facility] - Labs Labs: 04/29/17 07:00 04/29/17 07:00 PT 13.9 SECONDS (9.4-12.5) H 04/28/17 10:50 INR 1.20 (0.93-1.08) H 04/28/17 10:50 APTT 29.1 Seconds (25.1-36.5) 04/28/17 10:50 Attending/Attestation - Attestation I have personally seen and examined this patient.: Yes I have fully participated in the care of the patient.: Yes I have reviewed all pertinent clinical information, including history, physical exam and plan: Yes Notes (Text): 04/29/17 14:37 76 year old female with past medical history of CAD s/p stents and CABG, systolic CHF, hypertension, diabetes, diverticulosis and hemorrhoids who presented with complaint of rectal bleeding. Aspirin is on hold. H/H is stable. Continue with liquid diet. Continue with iv protonix. GI and cardiology evaluation were requested; will follow up with recommendations. Wendy Diaz MD Hospitalist.
[2017-04-29 07:48] LABS: BASO # 0.02 K/mm3 (0.0-2.0); BASO % 0.3 % (0.0-3.0); EOS # 0.1 (0.0-0.7); EOS % 1.1 % (1.5-5.0); GRAN # 4.06 (1.4-6.5); HEMOGLOBIN 10.1 g/dL (12.0-16.0); LYMPH # 1.5 (1.2-3.4); LYMPH % 24.6 % (22.0-35.0); MEAN CELL VOLUME 86.4 fl (80.0-105.0); MEAN CORPUSCULAR HEMOGLOBIN 26.4 pg (25.0-35.0); MEAN CORPUSCULAR HGB CONC 30.6 g/dl (31.0-37.0); MEAN PLATELET VOLUME 10.7 fl (7.0-11.0); MONO # 0.6 (0.1-0.6); RBC 3.82 10^6/uL (3.5-6.1); RED CELL DISTRIBUTION WIDTH 15.8 % (11.5-14.5); WHITE BLOOD COUNT 6.3 10^3/ul (4.5-11.0)
[2017-04-29 08:04] LABS: ALBUMIN 3.2 g/dL (3.0-4.8); ALT/SGPT 32 U/L (7-56); AST/SGOT 24 U/L (14-36); BLOOD UREA NITROGEN 10 mg/dL (7-21); CALCIUM 9.3 mg/dL (8.4-10.5); GFR AFRICAN-AMERICAN > 60; GFR NON-AFRICAN AMERICAN > 60
[2017-04-29] MEDS ORDERED: Dextrose 50% SYRINGE Inj (50 ml) IVP STA (08:19)
[2017-04-29] MEDS: Insulin Reg-LOW-Coverage SC SCH ×4 (08:23→22:02)
[2017-04-29] MEDS ORDERED: Dextrose 5%/0.9% NS 1,000 ML IV SCH (09:30)
--- NOTE | 2017-04-29 11:57 | CARD ---
APPROVED REPORT EKG Measurement Heart [id number] <Conclusion> Sinus rhythm with occasional premature ventricular complexes and premature atrial complexes Possible Anterolateral infarct, age undetermined Abnormal ECG
[2017-04-29] MEDS: Dorzolamide 2%/Timolol 0.5% 100 DROP/10 ML BOTTLE OU SCH ×2 (11:58→18:20)
--- NOTE | 2017-04-29 15:02 | CP.PCM.CON ---
<Levy Campbell - Last Filed: 04/29/17 14:51> History of Present Illness - History of Present Illness History of Present Illness: PGY4 Initial GI Consult Reason for consult: GI bleed Lelo Lentz is a 76 F with a PMHx of CAD s/p 6 stent placement prior to CABG 2016 (most recent cardiac cath was last week), CHF (EF 25%), pulmonary HTN, HTN , IDDM, GABRIELLE, anemia, diverticulosis, and hemorrhoids presents to the ED following seeing bright red blood in the toilet. Patient states that she had multiple episodes of bright red blood pre rectum two night ago. She subsequently saw bright red which transitioned to maroon colored stool. Pt denies any previous episodes of BRBPR. She denies any associated abd pain with rectal bleeding. Pt is on aspirin but denies prolong use of any kind of NSAIDS. She denies abdominal pain, nausea, vomiting, constipation, or diarrhea. Pt did have a recent colonoscopy 12/2016 - 2 polyps were removed (tubular adenoma), internal hemorrhoids and diverticulosis. Endoscopy on 11/2016 showed LA grad A erosive esophagitis ,erosive gastritis, and gastritis. She did not receive any PRBC. There were no additional episodes of rectal bleeding since admission 12 Point ROS performed and negative other than stated above PMH: CAD s/p stent placement and CABG, CHF, pulmary HTN, HTN, IDDM, GABRIELLE, normocytic anemia Surgical Hx: CABG (04/2016), Hysterectomy, breast reduction Family Hx: Father passed from prostate cancer. Sister - Hx of breast cancer and another sister from pancreatic ca Social Hx: Retired, Denies alcohol, tobacco, illicit drugs Endo Hx: Colonoscopy 12/2016 and EGD 12/2016 Past Patient History - Infectious Disease Hx of Infectious Diseases: None - Past Social History Smoking Status: Never Smoked - CARDIAC Hx Cardiac Disorders: Yes (cad,cabg,) Hx Hypertension: Yes Hx Pacemaker: No Hx Peripheral Edema: Yes - PULMONARY Hx Respiratory Disorders: Yes (PE) Hx Sleep Apnea: Yes (CPAP) - NEUROLOGICAL Hx Neurological Disorder: Yes (SYNCOPE) Hx Transient Ischemic Attacks (TIA): Yes - HEENT Hx HEENT Problems: Yes Hx Cataracts: Yes (LEFT) Hx Glaucoma: Yes - RENAL Hx Chronic Kidney Disease: No - ENDOCRINE/METABOLIC Hx Endocrine Disorders: Yes Hx Diabetes Mellitus Type 2: Yes Hx Hypothyroidism: Yes - HEMATOLOGICAL/ONCOLOGICAL Hx Blood Disorders: Yes - INTEGUMENTARY Hx Dermatological Problems: Yes (BILATERAL LEG EDEMA RIGHT LEG +3 AND LEFT LEG + 2.) - MUSCULOSKELETAL/RHEUMATOLOGICAL Hx Musculoskeletal Disorders: Yes Hx Falls: Yes Hx Unsteady Gait: Yes (CANE) - GASTROINTESTINAL Hx Gastrointestinal Disorders: Yes (GI BLEED --18) - GENITOURINARY/GYNECOLOGICAL Hx Genitourinary Disorders: Yes (BILATERAL BREAST REDUCTION,TOTAL HYSTERECTOMY) - PSYCHIATRIC Hx Emotional Abuse: No Hx Physical Abuse: No Hx Substance Use: No - SURGICAL HISTORY Hx Surgeries: Yes Hx Cardiac Catheterization: Yes Hx Coronary Stent: Yes (6 stents 4 yrs ago) Hx Hysterectomy: Yes Hx Open Heart Surgery: Yes (triple bypass 2016) Other/Comment: breast reduction in 1969 - ANESTHESIA Hx Anesthesia: Yes Hx Anesthesia Reactions: No Hx Malignant Hyperthermia: No Meds Allergies/Adverse Reactions: Allergies Allergy/AdvReac Type Severity Reaction Status Date / Time shellfish derived Allergy Severe ANAPHYLAXIS Verified 04/28/17 16:21 - Medications Medications: Current Medications Atorvastatin Calcium (Lipitor) 20 mg PO DAILY [facility] Last Admin: 04/29/17 09:56 Dose: 20 mg Carvedilol (Coreg) 6.25 mg PO BID [facility] Dorzolamide/Timolol (Cosopt 2%-0.5% Opht) 1 drop OU BID [facility] Last Admin: 04/29/17 11:58 Dose: 1 drop Furosemide (Lasix) 40 mg PO DAILY [facility] Last Admin: 04/29/17 09:55 Dose: 40 mg Gabapentin (Neurontin) 300 mg PO DAILY [facility] PRN Reason: Protocol Last Admin: 04/29/17 09:55 Dose: 300 mg Pantoprazole Sodium (Protonix 40mg Ivpb) 40 mg in 100 mls @ 200 mls/hr IVPB 0600 [facility] Last Admin: 04/29/17 05:22 Dose: 200 mls/hr Insulin Human Regular (Humulin R Low) 0 units SC ACHS [facility] PRN Reason: Protocol Last Admin: 04/29/17 11:58 Dose: Not Given Latanoprost (Xalatan Opht) 0 ml OU HS [facility] Last Admin: 04/28/17 23:33 Dose: 2.5 ml Levothyroxine Sodium (Synthroid) 88 mcg PO 0600 [facility] Last Admin: 04/29/17 05:22 Dose: 88 mcg Lisinopril (Zestril) 10 mg PO DAILY [facility] Non-Formulary Medication (Melatonin [Melatin]) 5 mg PO HS [facility] Last Admin: 04/28/17 23:31 Dose: Not Given Spironolactone (Aldactone) 25 mg PO BID [facility] Physical Exam - Constitutional Appears: Well, No Acute Distress - Head Exam Head Exam: ATRAUMATIC, NORMOCEPHALIC - Eye Exam Eye Exam: Normal appearance - ENT Exam ENT Exam: Mucous Membranes Moist, Normal Exam - Neck Exam Neck exam: Positive for: Normal Inspection - Respiratory Exam Respiratory Exam: Clear to Auscultation Bilateral, NORMAL BREATHING PATTERN. absent: Rales, Rhonchi, Wheezes, Respiratory Distress - Cardiovascular Exam Cardiovascular Exam: REGULAR RHYTHM, +S1, +S2 - GI/Abdominal Exam GI & Abdominal Exam: Normal Bowel Sounds, Soft. absent: Distended, Guarding, Hernia, Rebound, Rigid - Extremities Exam Extremities exam: Negative for: joint swelling, pedal edema - Neurological Exam Neurological exam: Alert, Oriented x3 - Psychiatric Exam Psychiatric exam: Normal Affect, Normal Mood - Skin Skin Exam: Dry, Intact, Normal Color, Warm Results - Vital Signs Recent Vital Signs: Last Vital Signs Temp 98.0 F 04/29/17 06:00 Pulse 73 04/29/17 14:49 Resp 19 04/29/17 12:00 BP 147/72 04/29/17 14:49 Pulse Ox 97 04/29/17 12:00 - Labs Result Diagrams: 04/29/17 07:00 04/29/17 07:00 Labs: Laboratory Results - last 24 hr 04/28/17 04/28/17 04/28/17 17:15 17:30 21:28 WBC 7.3 RBC 3.98 Hgb 10.6 L Hct 34.5 L MCV 86.7 MCH 26.6 MCHC 30.7 L RDW 15.7 H Plt Count 246 MPV 10.0 Gran % Lymph % (Auto) [place] % (Auto) Eos % (Auto) Baso % (Auto) Gran # Lymph # (Auto) [place] # (Auto) Eos # (Auto) Baso # (Auto) Sodium Potassium Chloride Carbon Dioxide Anion Gap BUN Creatinine Est GFR ( Amer) Est GFR (Non-Af Amer) POC Glucose (mg/dL) 52 L 121 H Random Glucose Calcium Total Bilirubin AST ALT Alkaline Phosphatase Total Protein Albumin Globulin Albumin/Globulin Ratio 04/29/17 04/29/17 04/29/17 07:00 07:00 07:40 WBC 6.3 RBC 3.82 Hgb 10.1 L Hct 33.0 L MCV 86.4 MCH 26.4 MCHC 30.6 L RDW 15.8 H Plt Count 272 MPV 10.7 Gran % 65.0 Lymph % (Auto) 24.6 [place] % (Auto) 9.0 H Eos % (Auto) 1.1 L Baso % (Auto) 0.3 Gran # 4.06 Lymph # (Auto) 1.5 [place] # (Auto) 0.6 Eos # (Auto) 0.1 Baso # (Auto) 0.02 Sodium 144 Potassium 3.6 Chloride 105 Carbon Dioxide 29 Anion Gap 14 BUN 10 Creatinine 0.9 Est GFR ( Amer) > 60 Est GFR (Non-Af Amer) > 60 POC Glucose (mg/dL) 47 L Random Glucose 54 L Calcium 9.3 Total Bilirubin 0.5 AST 24 ALT 32 Alkaline Phosphatase 80 Total Protein 6.2 Albumin 3.2 Globulin 3.0 Albumin/Globulin Ratio 1.0 L 04/29/17 04/29/17 09:27 11:50 WBC RBC Hgb Hct MCV MCH MCHC RDW Plt Count MPV Gran % Lymph % (Auto) [place] % (Auto) Eos % (Auto) Baso % (Auto) Gran # Lymph # (Auto) [place] # (Auto) Eos # (Auto) Baso # (Auto) Sodium Potassium Chloride Carbon Dioxide Anion Gap BUN Creatinine Est GFR ( Amer) Est GFR (Non-Af Amer) POC Glucose (mg/dL) 109 78 Random Glucose Calcium Total Bilirubin AST ALT Alkaline Phosphatase Total Protein Albumin Globulin Albumin/Globulin Ratio Assessment & Plan - Assessment and Plan (Free Text) Assessment: Lelo Lentz is a 76 F with PMHx of CAD s/p 6 stent placement prior to CABG 2016 (most recent cardiac cath was last week), CHF (EF 25%), pulmonary HTN, HTN , IDDM, GABRIELLE, anemia, diverticulosis, and hemorrhoids presents to the ED for rectal bleeding Painless Rectal bleeding, likely diverticular Diverticulosis Hx of tubular adenoma hx of constipation Plan -restart diet -full liquids -no plan for colonoscopy of EGD at this time -in the event of reoccurence of bleeding recommend CTA -based on recent colonoscopy etiology is likely diverticular -avoid NSAIDs -continue PPI D/W Dr. Obrien <Yuliya Obrien MD - Last Filed: 04/29/17 16:27> Meds - Medications Medications: Current Medications Atorvastatin Calcium (Lipitor) 20 mg PO DAILY [facility] Last Admin: 04/29/17 09:56 Dose: 20 mg Carvedilol (Coreg) 6.25 mg PO BID [facility] Dorzolamide/Timolol (Cosopt 2%-0.5% Opht) 1 drop OU BID [facility] Last Admin: 04/29/17 11:58 Dose: 1 drop Furosemide (Lasix) 40 mg PO DAILY [facility] Last Admin: 04/29/17 09:55 Dose: 40 mg Gabapentin (Neurontin) 300 mg PO DAILY [facility] PRN Reason: Protocol Last Admin: 04/29/17 09:55 Dose: 300 mg Pantoprazole Sodium (Protonix 40mg Ivpb) 40 mg in 100 mls @ 200 mls/hr IVPB 0600 [facility] Last Admin: 04/29/17 05:22 Dose: 200 mls/hr Insulin Human Regular (Humulin R Low) 0 units SC ACHS [facility] PRN Reason: Protocol Last Admin: 04/29/17 11:58 Dose: Not Given Latanoprost (Xalatan Opht) 0 ml OU HS [facility] Last Admin: 04/28/17 23:33 Dose: 2.5 ml Levothyroxine Sodium (Synthroid) 88 mcg PO 0600 [facility] Last Admin: 04/29/17 05:22 Dose: 88 mcg Lisinopril (Zestril) 10 mg PO DAILY [facility] Non-Formulary Medication (Melatonin [Melatin]) 5 mg PO HS [facility] Last Admin: 04/28/17 23:31 Dose: Not Given Spironolactone (Aldactone) 25 mg PO BID [facility] Results - Vital Signs Recent Vital Signs: Last Vital Signs Temp 98.0 F 04/29/17 06:00 Pulse 73 04/29/17 14:49 Resp 19 04/29/17 12:00 BP 147/72 04/29/17 14:49 Pulse Ox 97 04/29/17 12:00 - Labs Result Diagrams: 04/29/17 07:00 04/29/17 07:00 Labs: Laboratory Results - last 24 hr 04/28/17 04/28/17 04/28/17 17:15 17:30 21:28 WBC 7.3 RBC 3.98 Hgb 10.6 L Hct 34.5 L MCV 86.7 MCH 26.6 MCHC 30.7 L RDW 15.7 H Plt Count 246 MPV 10.0 Gran % Lymph % (Auto) [place] % (Auto) Eos % (Auto) Baso % (Auto) Gran # Lymph # (Auto) [place] # (Auto) Eos # (Auto) Baso # (Auto) Sodium Potassium Chloride Carbon Dioxide Anion Gap BUN Creatinine Est GFR ( Amer) Est GFR (Non-Af Amer) POC Glucose (mg/dL) 52 L 121 H Random Glucose Calcium Total Bilirubin AST ALT Alkaline Phosphatase Total Protein Albumin Globulin Albumin/Globulin Ratio 04/29/17 04/29/17 04/29/17 07:00 07:00 07:40 WBC 6.3 RBC 3.82 Hgb 10.1 L Hct 33.0 L MCV 86.4 MCH 26.4 MCHC 30.6 L RDW 15.8 H Plt Count 272 MPV 10.7 Gran % 65.0 Lymph % (Auto) 24.6 [place] % (Auto) 9.0 H Eos % (Auto) 1.1 L Baso % (Auto) 0.3 Gran # 4.06 Lymph # (Auto) 1.5 [place] # (Auto) 0.6 Eos # (Auto) 0.1 Baso # (Auto) 0.02 Sodium 144 Potassium 3.6 Chloride 105 Carbon Dioxide 29 Anion Gap 14 BUN 10 Creatinine 0.9 Est GFR ( Amer) > 60 Est GFR (Non-Af Amer) > 60 POC Glucose (mg/dL) 47 L Random Glucose 54 L Calcium 9.3 Total Bilirubin 0.5 AST 24 ALT 32 Alkaline Phosphatase 80 Total Protein 6.2 Albumin 3.2 Globulin 3.0 Albumin/Globulin Ratio 1.0 L 04/29/17 04/29/17 04/29/17 09:27 11:50 16:06 WBC RBC Hgb Hct MCV MCH MCHC RDW Plt Count MPV Gran % Lymph % (Auto) [place] % (Auto) Eos % (Auto) Baso % (Auto) Gran # Lymph # (Auto) [place] # (Auto) Eos # (Auto) Baso # (Auto) Sodium Potassium Chloride Carbon Dioxide Anion Gap BUN Creatinine Est GFR ( Amer) Est GFR (Non-Af Amer) POC Glucose (mg/dL) 109 78 115 H Random Glucose Calcium Total Bilirubin AST ALT Alkaline Phosphatase Total Protein Albumin Globulin Albumin/Globulin Ratio Attending/Attestation - Attestation I have personally seen and examined this patient.: Yes I have fully participated in the care of the patient.: Yes I have reviewed all pertinent clinical information: Yes Notes (Text): 04/29/17 16:18 Patient seen with GI fellow on rounds. This is a 76 F with PMHx of CAD s/p 6 stent placement prior to CABG 04/2016 (most recent cardiac cath was last week), CHF (EF 25%), pulmonary HTN, HTN, IDDM, GABRIELLE, anemia, diverticulosis, and hemorrhoids presents to the ED for rectal bleeding. Colonoscopy in 01/09 showed diverticular disease and EGD showing LA grade A esophagitis. Rectal bleeidng likely due to diverticulosis which has self resolved now. Will advance diet as tolerated. No plan for endoscopic intervention right now. If bleeding reoccurs will do CT angiogram. Avoid NSAID's and continue PPI. Will sign off now. Thank you for letting us participate in the care of your patient
[2017-04-29] MEDS: MELATONIN 5 MG PO SCH (22:01)
[2017-04-29] MEDS: Latanoprost 2.5 ml Opht Soln OU SCH (22:05)
--- NOTE | 2017-04-30 02:21 | CON ---
DATE: CONSULTING PHYSICIAN: Sharon Smalls MD REASON FOR DICTATION: Covering Dr. Gigi Baez. REASON FOR THE CONSULTATION: Coronary artery disease, CABG, status post PTCA, admitted with bright red blood per rectum. BRIEF CLINICAL HISTORY: This is a 77-year-old morbidly obese female with a history of coronary artery disease, status post coronary artery bypass surgery at [facility], had a recent cath, medical treatment recommended, admitted with bright red blood per rectum, history of prior multiple stents in the past. PAST MEDICAL HISTORY: Significant for coronary artery disease, status post multiple stents; history of CABG; history of pulmonary hypertension; morbid obesity; diabetes; hypertension; hyperlipidemia; obstructive sleep apnea; history of coronary artery bypass in 2017; history of recent catheterization, medical treatment recommended. PAST SURGICAL HISTORY: Significant for CABG in 04/2016, hysterectomy, and breast reduction surgery. ALLERGIES: NO KNOWN DRUG ALLERGY. FAMILY HISTORY: No significant history of coronary artery disease. SOCIAL HISTORY: Retired. Denies any history of alcohol or substance abuse. Denies any history of tobacco abuse. CURRENT MEDICATIONS: Patient at home is taking MiraLax, multivitamin, metoprolol, melatonin, levothyroxine, insulin, gabapentin, Lasix, furosemide, atorvastatin, and aspirin. RECENT CARDIAC WORKUP: As follows: Patient had a cardiac catheterization done by Dr. iGgi Baez 10 days ago, dated 04/17/2017. Cardiac catheterization revealed decreased LV function, ejection fraction 25%, coronary anatomy, the distal left main 70% stenosis, LAD revealed 60%-70% stenosis in the proximal, diffuse atherosclerotic disease, circumflex 70%-80% stenosis, RCA 50%-60% stenosis, LANDAVERDE to the LAD found to be occluded in the midportion, chronically occluded circumflex artery, patent stent in the proximal RCA, marked abnormal LV function, occluded LANDAVERDE. During the finding, patient considered for high-risk angioplasty of the unprotected left main plan; but patient did not go for angioplasty, admitted yesterday with bright red blood per rectum. REVIEW OF SYSTEMS: As per HPI. PHYSICAL EXAMINATION: As follows: VITAL SIGNS: Temperature afebrile, heart rate 70, blood pressure 150/86. HEENT: PERRLA. Extraocular muscles are intact. NECK: Supple. No carotid bruits or thyromegaly. CHEST: Clear to auscultation. HEART: S1 and S2 regular. ABDOMEN: Soft. EXTREMITIES: Clubbing and cyanosis negative. LABORATORY DATA: Blood workup as follows: WBC 7, hemoglobin 10.2, hematocrit 33.0, platelet count 272. Chemistry showed sodium 144, potassium 3.6, chloride 105, bicarb of 29, anion gap of 14, BUN 10, creatinine 0.9. IMPRESSION: Bright red blood per rectum, possibly hemorrhoid, no significant drop in hemoglobin and hematocrit, history of coronary artery disease, history of morbid obesity, diabetes, hypertension, hyperlipidemia, history of stent prior in right coronary artery, occluded circumflex, most recent catheterization on 04/17/2017 showed left main 70% stenosis, high-grade stenosis in left anterior descending artery, occluded circumflex and decreased left ventricular function, midportion of circumflex is totally occluded, unchanged from the previous catheterization, 50%-60% stenosis. RECOMMENDATION: Was to intervene for the left main later. The patient was admitted with bright red blood per rectum, no further episode of bleeding noted. Last echo patient had on 04/12/2017 showed LV with global hypokinesis, dilated LA/RA, [id number] tricuspid regurgitation, severe pulmonary hypertension with right ventricular systolic pressure of 98, cardiomyopathy with ejection fraction 25%. We will hold aspirin from now and monitor H and H. Continue atorvastatin. Continue low-dose beta-talha. We will transfer the care tomorrow to Dr. Gigi Baez. We will add Coreg, ELIAS inhibitors, and aspirin therapy, and we will follow with you. We will start 10 mg of lisinopril and statin 10 mg from tomorrow. Thank you for providing me the opportunity in taking care of the patient, Lelo Lentz. We will follow with you. Sharon Smalls MD
[2017-04-30] MEDS: Pantoprazole 40mg/100mL NS 40 MG/100 ML BAG IVPB SCH (05:14)
[2017-04-30] MEDS: Levothyroxine 88 MCG TAB PO SCH (05:14)
[2017-04-30 06:33] LABS: BASO # 0.03 K/mm3 (0.0-2.0); BASO % 0.6 % (0.0-3.0); EOS # 0.2 (0.0-0.7); EOS % 3.6 % (1.5-5.0); GRAN # 2.96 (1.4-6.5); GRAN % 56.3 % (50.0-68.0); HEMOGLOBIN 9.8 g/dL (12.0-16.0); LYMPH # 1.5 (1.2-3.4); LYMPH % 28.5 % (22.0-35.0); MEAN CELL VOLUME 85.8 fl (80.0-105.0); MEAN CORPUSCULAR HEMOGLOBIN 26.3 pg (25.0-35.0); MEAN CORPUSCULAR HGB CONC 30.7 g/dl (31.0-37.0); MEAN PLATELET VOLUME 10.1 fl (7.0-11.0); MONO # 0.6 (0.1-0.6); RBC 3.72 10^6/uL (3.5-6.1); RED CELL DISTRIBUTION WIDTH 15.8 % (11.5-14.5); WHITE BLOOD COUNT 5.3 10^3/ul (4.5-11.0)
[2017-04-30 07:13] LABS: ALBUMIN 3.1 g/dL (3.0-4.8); CALCIUM 9.5 mg/dL (8.4-10.5); MAGNESIUM 2.1 mg/dL (1.7-2.2)
[2017-04-30 08:05] VITALS: RESP 20
[2017-04-30] MEDS: Insulin Reg-LOW-Coverage SC SCH ×3 (08:16→16:45)
[2017-04-30] MEDS ORDERED: POLYETHYLENE GLYCOL 3350 17 GM/Dose PACKET PO SCH (10:00)
[2017-04-30] MEDS: Dorzolamide 2%/Timolol 0.5% 100 DROP/10 ML BOTTLE OU SCH ×2 (10:48→17:44)
[2017-04-30 11:10] LABS: TROPONIN I 0.69 ng/mL
--- NOTE | 2017-04-30 13:05 | CP.PCM.DIS ---
<Pankaj Luna - Last Filed: 04/30/17 16:35> Provider - Provider Date of Admission: 04/28/17 13:13 Attending physician: Sharon Joseph MD Primary care physician: Bam Garner MD Consults: Cardio: Dr. Baez GI: Dr. Michaud Time Spent in preparation of Discharge (in minutes): 45 Hospital Course - Lab Results Lab Results: Most Recent Lab Values WBC 5.3 10^3/ul (4.5-11.0) 04/30/17 05:45 RBC 3.72 10^6/uL (3.5-6.1) 04/30/17 05:45 Hgb 9.8 g/dL (12.0-16.0) L 04/30/17 05:45 Hct 31.9 % (36.0-48.0) L 04/30/17 05:45 MCV 85.8 fl (80.0-105.0) 04/30/17 05:45 MCH 26.3 pg (25.0-35.0) 04/30/17 05:45 MCHC 30.7 g/dl (31.0-37.0) L 04/30/17 05:45 RDW 15.8 % (11.5-14.5) H 04/30/17 05:45 Plt Count 249 10^3/uL (120.0-450.0) 04/30/17 05:45 MPV 10.1 fl (7.0-11.0) 04/30/17 05:45 Gran % 56.3 % (50.0-68.0) 04/30/17 05:45 Lymph % (Auto) 28.5 % (22.0-35.0) 04/30/17 05:45 Shannon % (Auto) 11.0 % (1.0-6.0) H 04/30/17 05:45 Eos % (Auto) 3.6 % (1.5-5.0) 04/30/17 05:45 Baso % (Auto) 0.6 % (0.0-3.0) 04/30/17 05:45 Gran # 2.96 (1.4-6.5) 04/30/17 05:45 Lymph # (Auto) 1.5 (1.2-3.4) 04/30/17 05:45 Shannon # (Auto) 0.6 (0.1-0.6) 04/30/17 05:45 Eos # (Auto) 0.2 (0.0-0.7) 04/30/17 05:45 Baso # (Auto) 0.03 K/mm3 (0.0-2.0) 04/30/17 05:45 PT 13.9 SECONDS (9.4-12.5) H 04/28/17 10:50 INR 1.20 (0.93-1.08) H 04/28/17 10:50 APTT 29.1 Seconds (25.1-36.5) 04/28/17 10:50 Sodium 145 mmol/L (132-148) 04/30/17 05:45 Potassium 3.6 mmol/L (3.6-5.0) 04/30/17 05:45 Chloride 106 mmol/L (98-107) 04/30/17 05:45 Carbon Dioxide 30 mmol/L (21-33) 04/30/17 05:45 Anion Gap 13 (10-20) 04/30/17 05:45 BUN 11 mg/dL (7-21) 04/30/17 05:45 Creatinine 1.1 mg/dl (0.7-1.2) 04/30/17 05:45 Est GFR ( Amer) 58 04/30/17 05:45 Est GFR (Non-Af Amer) 48 04/30/17 05:45 POC Glucose (mg/dL) 122 mg/dL (65-110) H 04/30/17 11:37 Random Glucose 57 mg/dL (70-110) L 04/30/17 05:45 Hemoglobin A1c 7.3 % (4.2-6.5) H 04/30/17 05:45 Calcium 9.5 mg/dL (8.4-10.5) 04/30/17 05:45 Phosphorus 3.7 mg/dL (2.5-4.5) 04/30/17 05:45 Magnesium 2.1 mg/dL (1.7-2.2) 04/30/17 05:45 Total Bilirubin 0.5 mg/dL (0.2-1.3) 04/30/17 05:45 AST 29 U/L (14-36) 04/30/17 05:45 ALT 24 U/L (7-56) 04/30/17 05:45 Alkaline Phosphatase 76 U/L (38-126) 04/30/17 05:45 Lactate Dehydrogenase 520 U/L (333-699) 04/30/17 06:00 Total Creatine Kinase 61 U/L (35-230) 04/30/17 06:00 Troponin I 0.69 ng/mL H* D 04/30/17 06:00 NT-Pro-B Natriuret Pep 2240 pg/mL (0-450) H 04/28/17 12:00 Total Protein 6.1 g/dL (5.8-8.3) 04/30/17 05:45 Albumin 3.1 g/dL (3.0-4.8) 04/30/17 05:45 Globulin 3.0 gm/dL 04/30/17 05:45 Albumin/Globulin Ratio 1.0 (1.1-1.8) L 04/30/17 05:45 Triglycerides 67 mg/dL (35-160) 04/30/17 05:45 Cholesterol 147 mg/dL (130-200) 04/30/17 05:45 LDL Cholesterol Direct 81 mg/dL (0-129) 04/30/17 05:45 HDL Cholesterol 38 mg/dL (29-60) 04/30/17 05:45 TSH 3rd Generation 0.51 mIU/mL (0.46-4.68) 04/30/17 05:45 Urine Color Yellow (YELLOW) 04/28/17 10:50 Urine Appearance Clear (CLEAR) 04/28/17 10:50 Urine pH 6.5 (4.7-8.0) 04/28/17 10:50 Ur Specific Corona 1.010 (1.005-1.035) 04/28/17 10:50 Urine Protein Negative mg/dL (<30 mg/dL) 04/28/17 10:50 Urine Glucose (UA) Negative mg/dL (NEGATIVE) 04/28/17 10:50 Urine Ketones Negative mg/dL (NEGATIVE) 04/28/17 10:50 Urine Blood Small (NEGATIVE) H 04/28/17 10:50 Urine Nitrate Negative (NEGATIVE) 04/28/17 10:50 Urine Bilirubin Negative (NEGATIVE) 04/28/17 10:50 Urine Urobilinogen 0.2 E.U./dL (<1 E.U./dL) 04/28/17 10:50 Ur Leukocyte Esterase Negative Cameron/uL (NEGATIVE) 04/28/17 10:50 Urine RBC 0 - 2 /hpf (0-2) 04/28/17 10:50 Urine WBC Negative /hpf (0-6) 04/28/17 10:50 Ur Epithelial Cells 3 - 4 /hpf (0-5) 04/28/17 10:50 Urine Bacteria Neg (NEG) 04/28/17 10:50 Blood Type O POSITIVE 04/28/17 12:00 Antibody Screen Negative 04/28/17 12:00 BBK History Checked Patient has bt 04/28/17 12:00 - Hospital Course Hospital Course: 76yo F with PMHx of CAD s/p 6 stents and CABG, CHF, Puml HTN, HTN, DM, GABRIELLE, Chronic Anemia, Diverticulosis, and hemorrhoids came in for evaluation of 3 episodes of BRBPR. GI was consulted, Colonoscopy differred due to recent colonoscopy and stable Hb. Cardiac consult was requested due to significant cardiac hx and she was also cleared from cardiology standpoint. Hb has remained stable throughout this admission. Patient was resumed on home meds. Asked to hold ASA for at least 1 week. Outpatient follow up with her PMD was requested. Patient was requested to continue stool softeners at home. Patient understands and agrees with plan. 1. Diverticular vs. hemorrhoidal bleeding. Stable 2. Hx of CAD. f/u with Dr. Baez on 05/23 3. Hx of DM, HTN, CHF. Continue home meds. Add Spironolactone Discharge Exam - Head Exam Head Exam: ATRAUMATIC, NORMAL INSPECTION, NORMOCEPHALIC - Eye Exam Eye Exam: EOMI, Normal appearance. absent: Scleral icterus - ENT Exam ENT Exam: Mucous Membranes Moist - Respiratory Exam Respiratory Exam: Clear to PA & Lateral, NORMAL BREATHING PATTERN. absent: Accessory Muscle Use, Wheezes - Cardiovascular Exam Cardiovascular Exam: RRR. absent: JVD - GI/Abdominal Exam GI & Abdominal Exam: Soft. absent: Distended, Firm, Guarding, Rebound, Rigid, Tenderness - Extremities Exam Extremities exam: normal inspection - Neurological Exam Neurological exam: Alert, Oriented x3 - Skin Skin Exam: Dry, Intact, Normal Color, Warm Discharge Plan - Discharge Medications Prescriptions: Spironolactone [Aldactone] 25 mg PO BID #60 tab - Follow Up Plan Condition: STABLE Disposition: HOME/ ROUTINE Instructions: Heart Failure (DC), Rectal Bleeding (DC), Weakness (GEN), Coronary Artery Bypass Graft (DC) Additional Instructions: Patient is cleared for discharge as per Dr. Joseph 1. Follow up with PMD within 3 days. Call for an appointment. 2. Follow up with Dr. Baez within 1 week. 3. Resume home meds. Hold Aspirin for 1 week. 4. Continue to take stool softeners. 5. Return to the ER with any concerning symptoms. Referrals: Bam Garner MD [Primary Care Provider] - Gigi Baez MD [Staff Provider] - <Sharon Joseph - Last Filed: 05/02/17 16:28> Provider - Provider Date of Admission: 04/28/17 13:13 Attending physician: Sharon Joseph MD Primary care physician: Bam Garner MD Hospital Course - Lab Results Lab Results: Most Recent Lab Values WBC 6.1 10^3/ul (4.5-11.0) 04/30/17 15:45 RBC 3.93 10^6/uL (3.5-6.1) 04/30/17 15:45 Hgb 10.6 g/dL (12.0-16.0) L 04/30/17 15:45 Hct 34.1 % (36.0-48.0) L 04/30/17 15:45 MCV 86.8 fl (80.0-105.0) 04/30/17 15:45 MCH 27.0 pg (25.0-35.0) 04/30/17 15:45 MCHC 31.1 g/dl (31.0-37.0) 04/30/17 15:45 RDW 15.8 % (11.5-14.5) H 04/30/17 15:45 Plt Count 228 10^3/uL (120.0-450.0) 04/30/17 15:45 MPV 11.1 fl (7.0-11.0) H 04/30/17 15:45 Gran % 56.3 % (50.0-68.0) 04/30/17 05:45 Lymph % (Auto) 28.5 % (22.0-35.0) 04/30/17 05:45 Shannon % (Auto) 11.0 % (1.0-6.0) H 04/30/17 05:45 Eos % (Auto) 3.6 % (1.5-5.0) 04/30/17 05:45 Baso % (Auto) 0.6 % (0.0-3.0) 04/30/17 05:45 Gran # 2.96 (1.4-6.5) 04/30/17 05:45 Lymph # (Auto) 1.5 (1.2-3.4) 04/30/17 05:45 Shannon # (Auto) 0.6 (0.1-0.6) 04/30/17 05:45 Eos # (Auto) 0.2 (0.0-0.7) 04/30/17 05:45 Baso # (Auto) 0.03 K/mm3 (0.0-2.0) 04/30/17 05:45 PT 13.9 SECONDS (9.4-12.5) H 04/28/17 10:50 INR 1.20 (0.93-1.08) H 04/28/17 10:50 APTT 29.1 Seconds (25.1-36.5) 04/28/17 10:50 Sodium 145 mmol/L (132-148) 04/30/17 05:45 Potassium 3.6 mmol/L (3.6-5.0) 04/30/17 05:45 Chloride 106 mmol/L (98-107) 04/30/17 05:45 Carbon Dioxide 30 mmol/L (21-33) 04/30/17 05:45 Anion Gap 13 (10-20) 04/30/17 05:45 BUN 11 mg/dL (7-21) 04/30/17 05:45 Creatinine 1.1 mg/dl (0.7-1.2) 04/30/17 05:45 Est GFR ( Amer) 58 04/30/17 05:45 Est GFR (Non-Af Amer) 48 04/30/17 05:45 POC Glucose (mg/dL) 144 mg/dL (65-110) H 04/30/17 16:33 Random Glucose 57 mg/dL (70-110) L 04/30/17 05:45 Hemoglobin A1c 7.3 % (4.2-6.5) H 04/30/17 05:45 Calcium 9.5 mg/dL (8.4-10.5) 04/30/17 05:45 Phosphorus 3.7 mg/dL (2.5-4.5) 04/30/17 05:45 Magnesium 2.1 mg/dL (1.7-2.2) 04/30/17 05:45 Total Bilirubin 0.5 mg/dL (0.2-1.3) 04/30/17 05:45 AST 29 U/L (14-36) 04/30/17 05:45 ALT 24 U/L (7-56) 04/30/17 05:45 Alkaline Phosphatase 76 U/L (38-126) 04/30/17 05:45 Lactate Dehydrogenase 520 U/L (333-699) 04/30/17 06:00 Total Creatine Kinase 61 U/L (35-230) 04/30/17 06:00 Troponin I 0.69 ng/mL H* D 04/30/17 06:00 NT-Pro-B Natriuret Pep 2240 pg/mL (0-450) H 04/28/17 12:00 Total Protein 6.1 g/dL (5.8-8.3) 04/30/17 05:45 Albumin 3.1 g/dL (3.0-4.8) 04/30/17 05:45 Globulin 3.0 gm/dL 04/30/17 05:45 Albumin/Globulin Ratio 1.0 (1.1-1.8) L 04/30/17 05:45 Triglycerides 67 mg/dL (35-160) 04/30/17 05:45 Cholesterol 147 mg/dL (130-200) 04/30/17 05:45 LDL Cholesterol Direct 81 mg/dL (0-129) 04/30/17 05:45 HDL Cholesterol 38 mg/dL (29-60) 04/30/17 05:45 TSH 3rd Generation 0.51 mIU/mL (0.46-4.68) 04/30/17 05:45 Urine Color Yellow (YELLOW) 04/28/17 10:50 Urine Appearance Clear (CLEAR) 04/28/17 10:50 Urine pH 6.5 (4.7-8.0) 04/28/17 10:50 Ur Specific Corona 1.010 (1.005-1.035) 04/28/17 10:50 Urine Protein Negative mg/dL (<30 mg/dL) 04/28/17 10:50 Urine Glucose (UA) Negative mg/dL (NEGATIVE) 04/28/17 10:50 Urine Ketones Negative mg/dL (NEGATIVE) 04/28/17 10:50 Urine Blood Small (NEGATIVE) H 04/28/17 10:50 Urine Nitrate Negative (NEGATIVE) 04/28/17 10:50 Urine Bilirubin Negative (NEGATIVE) 04/28/17 10:50 Urine Urobilinogen 0.2 E.U./dL (<1 E.U./dL) 04/28/17 10:50 Ur Leukocyte Esterase Negative Cameron/uL (NEGATIVE) 04/28/17 10:50 Urine RBC 0 - 2 /hpf (0-2) 04/28/17 10:50 Urine WBC Negative /hpf (0-6) 04/28/17 10:50 Ur Epithelial Cells 3 - 4 /hpf (0-5) 04/28/17 10:50 Urine Bacteria Neg (NEG) 04/28/17 10:50 Blood Type O POSITIVE 04/28/17 12:00 Antibody Screen Negative 04/28/17 12:00 BBK History Checked Patient has bt 04/28/17 12:00 Attending/Attestation - Attestation I have personally seen and examined this patient.: Yes I have fully participated in the care of the patient.: Yes I have reviewed all pertinent clinical information, including history, physical exam and plan: Yes Notes (Text): 05/02/17 16:26 Patient was seen and examined with medical service representative. Agreed with resident assessment and plan. 76 year old female with past medical history of CAD s/p stents and CABG, systolic CHF, hypertension, diabetes, diverticulosis and hemorrhoids who presented with complaint of rectal bleeding. . H/H is stable. Continue with liquid diet. Patient did not has any active bleeding during her stay in the hospital.She was evaluated by GI, no further work was recommended.Patient is asymptomatic.She is ambulatory.She will be discharged home and will follow up with PCP. Management plan was discussed in detail with patient Education was provided.
--- NOTE | 2017-04-30 15:03 | PN ---
DATE: 04/30/2017 CARDIOLOGY FOLLOWUP SUBJECTIVE: The patient is comfortable. No bleeding. No chest pain. No shortness of breath. PHYSICAL EXAMINATION: VITAL SIGNS: Blood pressure is 125/50, the heart rates in the 60s. NECK: Negative JVD. LUNGS: Without rales. HEART: With S1 and S2. EXTREMITIES: Without edema. LABORATORY DATA: The hemoglobin is stable at 9.8. Chemistries, BUN and creatinine are unremarkable. Glucose is 123. IMPRESSION: 1. Lower gastrointestinal bleed, likely due to . 2. No active angina. 3. Critical left main stenoses. 4. 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 5. Morbid obesity. 6. Hypercholesterolemia. Given these findings, I had an extensive discussion with the patient as well as her daughter about the options. Coronary bypass surgery would be the recommended procedure given her distal left main stenoses and a compromised left ventricle. The patient understands that given her poor LV and her comorbidities, the risk of surgery is high. In addition, critical left main PTCA with Impella support would also carry a high risk. The risk of bleeding with need for dual antiplatelet therapy would also be an issue. I have discussed all issues as well as the risk of without treatment with the patient and her daughter. They understand and all questions were answered. They will go home today. We will restart the baby aspirin. We will document whether there is active bleeding. In a week, they will make some decisions whether she will have bypass surgery versus a high-risk angioplasty. Gigi Baez MD
[2017-04-30 15:57] LABS: HEMOGLOBIN 10.6 g/dL (12.0-16.0); MEAN CELL VOLUME 86.8 fl (80.0-105.0); MEAN CORPUSCULAR HGB CONC 31.1 g/dl (31.0-37.0); MEAN PLATELET VOLUME 11.1 fl (7.0-11.0); RBC 3.93 10^6/uL (3.5-6.1); RED CELL DISTRIBUTION WIDTH 15.8 % (11.5-14.5); WHITE BLOOD COUNT 6.1 10^3/ul (4.5-11.0)
[2017-04-30 16:57] VITALS: BP 139/66; PULSE 70; TEMP 98.2; O2SAT 99
--- NOTE | 2017-04-30 17:57 | CARD ---
APPROVED REPORT EKG Measurement Heart [id number] [place] [id number] <Conclusion> Normal sinus rhythm Inferior infarct, age undetermined Cannot rule out Anterior infarct, age undetermined T wave abnormality, consider lateral ischemia Abnormal ECG
== END 2017-04-30 19:58 | disposition home or self-care (01) ==
LOC: ED 09:35 → ERH 13:13 → INTOOBSV 13:13 → 3RNO 15:13
PROVIDERS: ADMIT Hospitalist; ATTEND Internal Medicine
DX: K57.31 Diverticulosis of large intestine without perforation or abscess with bleeding (principal); K64.8 Other hemorrhoids; I50.20 Unspecified systolic (congestive) heart failure; I27.20 Pulmonary hypertension, unspecified; I11.0 Hypertensive heart disease with heart failure; E66.01 Morbid (severe) obesity due to excess calories; I36.1 Nonrheumatic tricuspid (valve) insufficiency; Z68.41 Body mass index [BMI] 40.0-44.9, adult; D64.9 Anemia, unspecified; E11.9 Type 2 diabetes mellitus without complications; E03.9 Hypothyroidism, unspecified; G47.33 Obstructive sleep apnea (adult) (pediatric); I25.10 Atherosclerotic heart disease of native coronary artery without angina pectoris; K29.60 Other gastritis without bleeding; K20.8 Other esophagitis; E78.00 Pure hypercholesterolemia, unspecified; H40.9 Unspecified glaucoma; Z79.4 Long term (current) use of insulin; Z79.82 Long term (current) use of aspirin; Z79.899 Other long term (current) drug therapy; Z95.1 Presence of aortocoronary bypass graft; Z95.5 Presence of coronary angioplasty implant and graft; Z80.3 Family history of malignant neoplasm of breast; Z80.0 Family history of malignant neoplasm of digestive organs
CPT/HCPCS: 36415; 71045; 80053; 80061; 81001; 82550; 82948; 83036; 83615; 83735; 83880; 84100; 84443; 84484; 85025; 85027; 85610; 85730; 86850; 86900; 93005; 99285; C9113; G0378; J7040; J7042

== ENCOUNTER 2017-12-07 12:44 | Emergency (ER) | payer MEDICARE ==
[2017-12-07 12:53] VITALS: BMI 41.9
[2017-12-07 12:57] VITALS: RESP 18
--- NOTE | 2017-12-07 13:22 | ED PDOC ---
Arrival/HPI - General Chief Complaint: Lower Extremity Problem/Injury Time Seen by Provider: 12/07/17 13:20 Historian: Patient - History of Present Illness Narrative History of Present Illness (Text): 12/07/17 77 yo female PMH: CAD s/p stent placement and CABG, CHF, pulmary HTN, HTN, IDDM, PVD, varicose veins, GABRIELLE, normocytic anemia Surgical Hx: CABG (04/2016), Hysterectomy, breast reduction come in accompanied by daughter for evaluation of Left leg pain gradually developed since yesterday. Pt reports, pain is over "inner aspect left knee", non-radiating, mild continuos. pt admits, called her PMD who recommend go to ED for further evaluation. Otherwise, pt denies known trauma or injury, fever, chills, headache, dizziness, N/V, CP, SOB, cough, wheezing, palpitation, diaphoresis, abd. pain, denies new weakness, sensory or vascular deficits to Left leg. Ambulate to Ed w/baseline gait, not in any apparent distress. Past Medical History - Provider Review Nursing Documentation Reviewed: Yes - Travel History Have you recently traveled outside [place] w/in the past 3 mons?: No - Past History Past History: No Previous - Infectious Disease Hx of Infectious Diseases: None - Cardiac Hx Cardiac Disorders: Yes (cad,cabg,) Hx Hypertension: Yes Hx Pacemaker: No Hx Peripheral Edema: Yes - Pulmonary Hx Respiratory Disorders: Yes (PE) Hx Pulmonary Embolism: Yes Hx Sleep Apnea: Yes (CPAP) - Neurological Hx Neurological Disorder: Yes (SYNCOPE) Hx Transient Ischemic Attacks (TIA): Yes - HEENT Hx HEENT Disorder: Yes Hx Cataracts: Yes (LEFT) Hx Glaucoma: Yes - Renal Hx Renal Disorder: No - Endocrine/Metabolic Hx Endocrine Disorders: Yes Hx Diabetes Mellitus Type 1: Yes Hx Diabetes Mellitus Type 2: Yes Hx Hypothyroidism: Yes - Hematological/Oncological Hx Blood Disorders: Yes - Integumentary Hx Dermatological Disorder: Yes (BILATERAL LEG EDEMA RIGHT LEG +3 AND LEFT LEG + 2.) - Musculoskeletal/Rheumatological Hx Musculoskeletal Disorders: Yes Hx Falls: Yes Hx Unsteady Gait: Yes (CANE) - Gastrointestinal Hx Gastrointestinal Disorders: Yes (GI BLEED 2--18) - Genitourinary/Gynecological Hx Genitourinary Disorders: Yes (BILATERAL BREAST REDUCTION,TOTAL HYSTERECTOMY) - Psychiatric Hx Emotional Abuse: No Hx Physical Abuse: No Hx Substance Use: No - Surgical History Hx Cardiac Catheterization: Yes Hx Coronary Stent: Yes (6 stents 4 yrs ago) Hx Hysterectomy: Yes Hx Open Heart Surgery: Yes (triple bypass 2016) Other/Comment: breast reduction in 1970 - Anesthesia Hx Anesthesia: Yes Hx Anesthesia Reactions: No Hx Malignant Hyperthermia: No - Suicidal Assessment Feels Threatened In Home Enviroment: No Family/Social History - Physician Review Nursing Documentation Reviewed: Yes Family/Social History: No Known Family HX Smoking Status: Never Smoked Hx Alcohol Use: No Hx Substance Use: No Hx Substance Use Treatment: No Allergies/Home Meds Allergies/Adverse Reactions: Allergies shellfish derived Allergy (Severe, Verified 04/28/17 16:21) ANAPHYLAXIS Home Medications: Home Meds Medication Instructions Recorded Confirmed Aspirin [Ecotrin] 81 mg PO DAILY 01/09/17 12/07/17 Atorvastatin [Lipitor] 40 mg PO DAILY 01/09/17 12/07/17 Ferrous Sulfate [Feosol] 324 mg PO TID 01/09/17 12/07/17 Furosemide [Lasix] 40 mg PO DAILY 01/09/17 12/07/17 Gabapentin [Neurontin] 300 mg PO DAILY 01/09/17 12/07/17 Insulin Aspart [Novolog Flexpen] 18 unit SC AC 01/09/17 12/07/17 Latanoprost [Xalatan] 1 drop OU HS 01/09/17 12/07/17 Levothyroxine [Synthroid] 75 mcg PO DAILY 01/09/17 12/07/17 Melatonin [Melatin] 5 mg PO HS 01/09/17 12/07/17 Multivitamin [Multivitamins] 1 each PO DAILY 01/09/17 12/07/17 Polyethylene Glycol 3350 [Miralax] 17 gm PO DAILY 01/09/17 12/07/17 Insulin Glargine,Hum.rec.anlog 50 unit SQ HS 04/12/17 12/07/17 [Toujeo Solostar] Dorzolamide 2%/Timolol 0.5% 1 drop OU BID 04/16/17 12/07/17 [Cosopt 2%-0.5% Opht] Metoprolol Succinate XL [Toprol XL] 25 mg PO DAILY 04/28/17 12/07/17 Clopidogrel [Plavix] 1 tab PO DAILY 12/07/17 12/07/17 Fluticasone/Vilanterol [Breo 1 puff IH DAILY 12/07/17 12/07/17 Ellipta 100-25 Mcg INH] Review of Systems - Review of Systems Constitutional: Normal Eyes: Normal ENT: Normal Respiratory: Normal. absent: SOB, Wheezing Cardiovascular: Normal. absent: Chest Pain, Palpitations, Edema, Calf Pain, HOROWITZ , Orthopnea Gastrointestinal: Normal Genitourinary Female: Normal Musculoskeletal: Other (left leg pain) Skin: Normal Neurological: Normal. absent: Headache, Dizziness, Focal Weakness Endocrine: Normal Hemo/Lymphatic: Normal Psychiatric: Normal Physical Exam Vital Signs Temp Pulse Resp BP Pulse Ox 12/07/17 15:55 98.7 F 63 18 151/70 H 97 12/07/17 12:57 98.3 F 60 18 155/86 H 99 Temperature: Afebrile Blood Pressure: Hypertensive Pulse: Regular Respiratory Rate: Normal Appearance: Positive for: Well-Appearing, Non-Toxic, Comfortable Pain Distress: None Mental Status: Positive for: Alert and Oriented X 3 - Systems Exam Conjunctiva: Present: Normal Mouth: Present: Moist Mucous Membranes Neck: Present: Trachea Midline. No: JVD, Bruit Respiratory/Chest: Present: Clear to Auscultation, Good Air Exchange. No: Respiratory Distress, Accessory Muscle Use Cardiovascular: Present: Regular Rate and Rhythm, Normal S1, S2. No: Murmurs Abdomen: No: Tenderness, Distention, Peritoneal Signs, Rebound, Guarding Upper Extremity: Present: Normal Inspection Lower Extremity: Present: Edema (trace ankle edema B/L), CALF TENDERNESS (Left) , NORMAL PULSES, Normal ROM, Capillary Refill < 2 s (B/L LEs), Other (skin discoloration lower legs sec to PVD, varicouse and palpable vein B/L). No: Erythema, Deformity Neurological: Present: GCS=15, Speech Normal Skin: Present: Warm, Dry, Normal Color. No: Rashes Psychiatric: Present: Alert, Oriented x 3 Medical Decision Making ED Course and Treatment: 12/07/17 Pt was OBS in ED for 3 hours and remained stable during the Ed evaluation. On re-eval, pt is afebrile, hemodynamicaly stable. Non-toxic. Neck: Supple Lungs: CTA B/L, BS equal B/L CVS: (+)S1S2, reg. LLE: small tenderness over medial aspect Left proximal fibula with palpable varicose vein. NO skin changes, no evidence of cellulitis. FAROM, beatriz neurovascular deficits. Neuorlogicaly intact. As per RN, was unable to obtain periph line. Chemistry review and appears baseline, no acute abnormalities. Doppler US of B/L LEs (-) DVT, prelim report. case and results review and discussed with and discharge with outpt f/u recommend/arranged. case discussed with ED attending, and patient was evaluated by , agrees with plan-discharge with Rx: Keflex. Pt has clinical findings c/w thrombophlebitis, superficial, early cellulitis. results review with patient and family, agrees with plan, will F/u with . - Lab Interpretations Lab Results: 12/07/17 13:45 Lab Results 12/07/17 13:45: Sodium 142, Potassium 4.7, Chloride 107, Carbon Dioxide 26, Anion Gap 14, BUN 16, Creatinine 1.1, Est GFR ( Amer) 58, Est GFR (Non- Af Amer) 48, Random Glucose 138 H, Calcium 9.0, Total Bilirubin 0.5, AST 31, ALT 24, Alkaline Phosphatase 83, Lactate Dehydrogenase 705 H, Total Creatine Kinase 66, Troponin I 0.02 D, Total Protein 6.6, Albumin 3.5, Globulin 3.0, Albumin/Globulin Ratio 1.2 - RAD Interpretation Radiology Orders: 12/07/17 13:26 DUPLEX LOWER EXTRM VEIN BILAT [US] Stat (-) DVT B/L, prelim report from [facility] Disposition/Present on Arrival - Present on Arrival Any Indicators Present on Arrival: Yes History of DVT/PE: Yes History of Uncontrolled Diabetes: No Urinary Catheter: No History of Decub. Ulcer: No History Surgical Site Infection Following: None - Disposition Have Diagnosis and Disposition been Completed?: Yes Diagnosis: Cellulitis, Thrombophlebitis leg superficial Disposition: HOME/ ROUTINE Disposition Time: 15:30 Patient Plan: Discharge Patient Problems: Current Active Problems Problem Status Onset Cellulitis Acute Thrombophlebitis leg superficial Acute Condition: STABLE Discharge Instructions (ExitCare): Cellulitis (ED), Superficial Phlebitis Additional Instructions: TAKE MEDICATION PRESCRIBED FOLLOW UP WITH PMD IN 1-2 DAYS FOR RE-EVALUATION. RETURN TO ED IF ANY WORSENING OR NEW CHANGES. Prescriptions: Cephalexin [Keflex] 500 mg PO Q6 #28 capsule Referrals: Bam Garner MD [Primary Care Provider] - Follow up with primary Forms: [employer] ([place])
[2017-12-07 14:38] LABS: ALB/GLOB RATIO 1.2 (1.1-1.8); ALBUMIN 3.5 g/dL (3.0-4.8)
[2017-12-07 14:49] LABS: TROPONIN I 0.02 ng/mL
[2017-12-07 15:56] VITALS: BP 151/70
[2017-12-07 16:38] VITALS: PULSE 67; TEMP 98.3; O2SAT 99
--- NOTE | 2017-12-07 17:17 | US ---
HISTORY: Leg pain and swelling. Evaluate for DVT PHYSICIAN(S): Gigi Kelley MD. TECHNIQUE: Duplex sonography and color-flow Doppler with graded compression were used to evaluate the deep venous systems of both lower extremities. FINDINGS: The exam is limited by body habitus and edema. The tibial veins are not well seen The visualized deep venous systems of both lower extremities are sonographically normal and compressible. Normal wave forms and augmentation are seen. There is no sonographic evidence for deep venous thrombosis in the visualized segments of both lower extremities. IMPRESSION: No sonographic evidence for deep venous thrombosis in the visualized segments of both lower extremities.
== END 2017-12-07 16:38 | disposition home or self-care (01) ==
LOC: ED 12:44
DX: I80.02 Phlebitis and thrombophlebitis of superficial vessels of left lower extremity (principal); L03.116 Cellulitis of left lower limb